=== PATIENT | female | born 1940 | race Caucasian/White ===

== ENCOUNTER 2017-02-03 14:24 | Observation (INO) ==
[2017-02-03] MEDS ORDERED: Nitroglycerin 0.4 MG TAB.SUBL SL PRN ×2 (14:29→17:35)
[2017-02-03] MEDS ORDERED: Aspirin 81 MG TAB.CHEW PO STA (14:29)
[2017-02-03] MEDS ORDERED: 0.9 % Sodium Chloride 1,000 ML IVC SCH ×2 (14:30→17:35)
--- NOTE | 2017-02-03 14:34 | Emergency Department Note ---
Disposition Clinical Impression: Chest pain Disposition: Admitted As Inpatient Condition: Good Chest Pain HPI - General Chief Complaint: ED Chest Pain Stated Complaint: Chest Pain Time Seen by Provider: 02/03/17 14:25 Source: patient, family Mode of arrival: ambulatory Limitations: no limitations Vital Signs Reviewed: Yes Nursing Notes Reviewed: Yes - History of Present Illness HPI Narrative: Patient states she is having intermittent chest pain substernal nonradiating that started about 2 hours prior to arrival. She denies to myself any nausea vomiting shortness of breath or radiation of the pain. She noted her blood pressure was up at 197 systolic prior to arrival. Pt complaint: chest pain Onset (ago): hour(s) (2) Duration: intermittent Onset: during rest Pain Location: substernal Severity: mild Severity scale (1-10): 4 Quality: tightness Improves with: nothing Worsens with: nothing Treatments prior to arrival chest pain: none - Related Data Home Medications Medication Instructions Recorded Confirmed Aspirin Enteric Coated [Aspirin EC] 162 mg PO DAILY 03/03/15 09/29/16 Brimonidine Tartrate/Timolol 1 drop OP BID 03/03/15 09/29/16 [Combigan 0.2%-0.5% Eye Drops] Cholecalciferol (Vitamin D3) 2,000 unit PO DAILY 03/03/15 09/29/16 [Vitamin D] Citalopram [CeleXA] 20 mg PO DAILY 03/03/15 09/29/16 Esomeprazole Magnesium [Nexium] 40 mg PO BID 03/03/15 09/29/16 Hypromellose [Genteal Mild] 1 drop OP HS 03/03/15 09/29/16 Insulin LISPRO [HumaLOG] 5 units SQ TIDWM MDD PER SLIDING 03/03/15 09/29/16 SCALE Pramipexole [Mirapex] 0.25 mg PO HS 03/03/15 09/29/16 Atorvastatin [Lipitor] 40 mg PO BID 10/02/15 09/29/16 Diltiazem CD (24hr) [Cardizem CD] 120 mg PO DAILY 10/02/15 09/29/16 Lubiprostone [Amitiza] 8 mcg PO BID 10/02/15 09/29/16 Ranitidine HCl [Heartburn Relief] 150 mg PO HS 10/02/15 09/29/16 Potassium Chloride [K-Tab ER] 20 meq PO DAILY 01/18/16 09/29/16 Albuterol Sulfate [Albuterol 2 puff IH Q4HR PRN 07/25/16 09/29/16 Inhaler] Ascorbic Acid [Vitamin C] 500 mg PO DAILY 07/25/16 09/29/16 Bumetanide [Bumex] 1 mg PO DAILY 07/25/16 09/29/16 Calcitriol [Rocaltrol] 0.25 mcg PO DAILY 07/25/16 09/29/16 Carboxymethylcell/Hypromellose 1 drop BOTH EYES HS 07/25/16 09/29/16 [Genteal Gel Drops] Carboxymethylcellulose Sodium 1 drop BOTH EYES QID 07/25/16 09/29/16 [Refresh Tears] Dorzolamide [Trusopt] 1 drop BOTH EYES TID 07/25/16 09/29/16 Furosemide [Lasix] 80 mg PO DAILY 07/25/16 09/29/16 Insulin DETEMIR [Levemir] 30 unit SQ HS 07/25/16 09/29/16 L. Rhamnosus GG/Inulin [Culturelle 1 cap PO DAILY 07/25/16 09/29/16 Capsule] Latanoprost [Xalatan] 1 drop BOTH EYES HS 07/25/16 09/29/16 Levothyroxine [Synthroid] 25 mcg PO 0630 07/25/16 09/29/16 Ropinirole HCl [Requip] 4 mg PO HS 07/25/16 09/29/16 Timolol [Betimol] 5 ml BOTH EYES BID 07/25/16 09/29/16 Tizanidine HCl 4 mg PO HS PRN 07/25/16 09/29/16 Estradiol [Estrace] 1 appl VG QWEEK 09/29/16 09/29/16 Tiotropium [Spiriva] 1 cap IH DAILY 09/29/16 09/29/16 metOLazone [Zaroxolyn] 5 mg PO DAILY 09/29/16 09/29/16 Previous Rx's Medication Instructions Recorded Temazepam [Restoril] 15 mg PO HS PRN #30 capsule 10/27/15 Docusate [Colace] 100 mg PO BID #30 capsule 07/26/16 Sucralfate [Carafate] 1 gm PO QIDAC #120 tablet 10/01/16 amLODIPine [Norvasc] 5 mg PO DAILY #30 tablet 10/01/16 Ciprofloxacin [Cipro] 500 mg PO BID 7 Days tablet 10/06/16 Ondansetron ODT [Zofran ODT] 4 mg SL Q6HR PRN #30 tab.rapdis 10/06/16 metroNIDAZOLE [Flagyl] 500 mg PO TID 7 Days tablet 10/06/16 Allergies Allergy/AdvReac Type Severity Reaction Status Date / Time iodine Allergy Mild Hives Verified 09/29/16 04:24 morphine Allergy Difficulty Verified 09/29/16 04:24 Breathing All systems ED: reviewed and negative except as stated. Review of Systems: As Per HPI Constitutional: Denies: fever, chills, weakness, weight change Eyes: Denies: eye pain, eye discharge, vision change ENT ED: Denies: ear pain, throat pain, dental pain, hearing loss, epistaxis, congestion, dysphagia Cardiovascular: Reports: as per HPI, chest pain. Denies: palpitations, dyspnea on exertion, edema, syncope Respiratory: Denies: cough, dyspnea, wheezes, hemoptysis, stridor Gastrointestinal: Denies: abdominal pain, nausea, vomiting, diarrhea, constipation, hematemesis, melena, hematochezia Genitourinary: Denies: dysuria, frequency, hematuria, discharge Musculoskeletal: Denies: back pain, neck pain, arthralgia, myalgia Integumentary: Denies: rash, abrasion, lesions Neurological: Denies: headache, weakness, numbness, paresthesias, confusion, abnormal gait, vertigo Psychiatric: Denies: anxiety, depression, suicidal thoughts, homicidal thoughts , auditory hallucinations, visual hallucinations Endocrine: Denies: fatigue Hematological/Lymphatic: Denies: easy bleeding, easy bruising Allergic/Immunologic: Denies: facial swelling, urticaria Chest Pain PMH - Past Medical History Medical history: Reports: arthritis, atrial fibrillation, CHF, COPD, coronary artery disease, diabetes, GERD, hyperlipidemia, hypertension, renal disease, thyroid disease, valvular heart disease, other Surgical history: Reports: appendectomy, carotid endarterectomy, cataract, cholecystectomy, sinus surgery, other Psychiatric history: Reports: anxiety, depression INVESTMENT BANKING ASSOCIATE history: Reports: no INVESTMENT BANKING ASSOCIATE history - Social History Smoking Status: Never smoker Alcohol use: Reports: none Drug use: Reports: none Physical Exam - General Limitations: no limitations General appearance: alert, in no apparent distress - Head Head exam: atraumatic, normocephalic, normal inspection - Eye Eye exam: Present: normal appearance, PERRL, EOMI - ENT ENT exam: normal exam, normal oropharynx, mucous membranes moist - Neck Neck exam: Present: normal inspection, full ROM, trachea midline - Chest Chest inspection: Present: normal inspection, symmetric chest wall rise - Respiratory Respiratory exam: Present: normal lung sounds bilaterally - Cardiovascular Cardiovascular exam: Present: regular rate, normal rhythm, normal heart sounds - Abdominal Exam Abdominal exam: Present: soft, Non-Tender. Absent: tenderness, distention, guarding, rebound, rigidity - Extremities Exam Extremities exam: Present: normal inspection, full ROM. Absent: tenderness, pedal edema - Back Exam Back exam: Present: normal inspection - Neurological Exam Neurological exam: Present: alert, oriented X3 - Psychiatric Psychiatric exam: Present: normal affect, normal mood - Skin Skin exam: Present: warm, dry, intact Course Vital Signs Temperature 97.2 F L 02/03/17 14:26 Pulse Rate 72 02/03/17 14:26 Respiratory Rate 17 02/03/17 14:26 Blood Pressure 228/94 02/03/17 14:26 O2 Sat by Pulse Oximetry 99 02/03/17 14:26 Temperature 98.0 F 02/03/17 19:43 Pulse Rate 67 02/03/17 19:43 Respiratory Rate 18 02/03/17 19:43 Blood Pressure 149/63 02/03/17 19:43 O2 Sat by Pulse Oximetry 98 02/03/17 19:43 Oxygen Delivery Oxygen Delivery Room Air Chest Pain - MDM Narrative Medical decision making narrative: Case is discussed with Dr. Tejada and he agreed to accept the patient. - Lab Data Result diagrams: 02/03/17 14:36 02/03/17 14:36 Lab Results 02/03/17 02/03/17 02/03/17 Range/Units 14:36 14:36 14:36 WBC 4.2 L (4.3-11.1) K/mcL RBC 4.73 (3.82-4.97) M/mcL Hgb 12.4 (11.5-15.4) g/dL Hct 38.7 (35.3-44.9) % MCV 81.8 L (83.0-100.0) fL MCH 26.2 L (28.0-33.3) pg MCHC 32.0 (31.6-35.5) g/dL RDW 21.4 H (11.5-14.5) % Plt Count 178 (140-400) K/mcL MPV 11.3 (9.4-12.4) fL Immature Gran % 0.2 (0-4) % Seg Neutrophils % 68.9 % Lymphocytes % 18.5 % Monocytes % 10.2 % Eosinophils % 1.7 % Basophils % 0.5 % Neutrophils # 2.9 (1.6-8.9) K/mcL Lymphocytes # 0.8 (0.6-4.6) K/mcL Monocytes # 0.4 (0.0-1.3) K/mcL Eosinophils # 0.1 (0.0-0.6) K/mcL Basophils # 0.0 (0.0-0.2) K/mcL PT 10.7 (9.4-12.1) Seconds INR 1.0 APTT 32.4 (26.0-36.0) Seconds Sodium 140 (136-145) mEq/L Potassium 4.2 (3.5-4.5) mEq/L Chloride 105 (98-109) mEq/L Carbon Dioxide 25 (19-29) mEq/L BUN 31 H (7-20) mg/dL Creatinine 1.63 H (0.57-1.11) mg/dL Est GFR ( Amer) 37 L (> 60) Est GFR (Non-Af Amer) 31 L (> 60) BUN/Creatinine Ratio 19 (6-26) Glucose 135 H (70-99) mg/dL Calculated Osmolality 299 (280-300) Calcium 10.0 (8.6-10.8) mg/dL Total Bilirubin 0.6 (0.2-1.2) mg/dL AST 87 H (5-34) Units/L ALT 75 H (0-55) Units/L Alkaline Phosphatase 155 H (38-126) Units/L Troponin I (0-0.03) ng/mL Serum Total Protein 7.4 (6.0-8.3) g/dL Albumin 3.6 (3.5-5.0) g/dL Globulin 3.8 H (2.4-3.5) g/dL Albumin/Globulin Ratio 0.9 L (1.1-2.2) 02/03/17 02/03/17 Range/Units 14:36 16:30 WBC (4.3-11.1) K/mcL RBC (3.82-4.97) M/mcL Hgb (11.5-15.4) g/dL Hct (35.3-44.9) % MCV (83.0-100.0) fL MCH (28.0-33.3) pg MCHC (31.6-35.5) g/dL RDW (11.5-14.5) % Plt Count (140-400) K/mcL MPV (9.4-12.4) fL Immature Gran % (0-4) % Seg Neutrophils % % Lymphocytes % % Monocytes % % Eosinophils % % Basophils % % Neutrophils # (1.6-8.9) K/mcL Lymphocytes # (0.6-4.6) K/mcL Monocytes # (0.0-1.3) K/mcL Eosinophils # (0.0-0.6) K/mcL Basophils # (0.0-0.2) K/mcL PT (9.4-12.1) Seconds INR APTT (26.0-36.0) Seconds Sodium (136-145) mEq/L Potassium (3.5-4.5) mEq/L Chloride (98-109) mEq/L Carbon Dioxide (19-29) mEq/L BUN (7-20) mg/dL Creatinine (0.57-1.11) mg/dL Est GFR ( Amer) (> 60) Est GFR (Non-Af Amer) (> 60) BUN/Creatinine Ratio (6-26) Glucose (70-99) mg/dL Calculated Osmolality (280-300) Calcium (8.6-10.8) mg/dL Total Bilirubin (0.2-1.2) mg/dL AST (5-34) Units/L ALT (0-55) Units/L Alkaline Phosphatase (38-126) Units/L Troponin I 0.03 0.03 (0-0.03) ng/mL Serum Total Protein (6.0-8.3) g/dL Albumin (3.5-5.0) g/dL Globulin (2.4-3.5) g/dL Albumin/Globulin Ratio (1.1-2.2) - EKG Data EKG attestation: Yes I reviewed and interpreted this EKG. EKG results narrative: EKG shows sinus rhythm with left atrial enlargement. Rate is 74 bpm ME interval of 167 ms R axis of 38 degrees
[2017-02-03 14:56] LABS: Basophils % 0.5 %; Eosinophils # 0.1 K/mcL (0.0-0.6); Eosinophils % 1.7 %; Hematocrit 38.7 % (35.3-44.9); Hemoglobin 12.4 g/dL (11.5-15.4); Immature Granulocytes % 0.2 % (0-4); Lymphocytes # 0.8 K/mcL (0.6-4.6); Lymphocytes % 18.5 %; Mean Corpuscular Hemoglobin 26.2 pg (28.0-33.3); Mean Corpuscular Volume 81.8 fL (83.0-100.0); Mean Platelet Volume 11.3 fL (9.4-12.4); Monocytes # 0.4 K/mcL (0.0-1.3); Monocytes % 10.2 %; Neutrophils # 2.9 K/mcL (1.6-8.9); Platelet Count 178 K/mcL (140-400); Red Blood Count 4.73 M/mcL (3.82-4.97); Red Cell Distribution Width 21.4 % (11.5-14.5); Segmented Neutrophils % 68.9 %
[2017-02-03 15:00] LABS: Prothrombin Time 10.7 Seconds (9.4-12.1)
[2017-02-03 15:02] LABS: Activated Partial Thrombo Time 32.4 Seconds (26.0-36.0)
[2017-02-03 15:17] LABS: Albumin 3.6 g/dL (3.5-5.0); Albumin/Globulin Ratio 0.9 (1.1-2.2); Bilirubin,Total 0.6 mg/dL (0.2-1.2); Globulin 3.8 g/dL (2.4-3.5); Potassium 4.2 mEq/L (3.5-4.5); Total Protein 7.4 g/dL (6.0-8.3)
[2017-02-03] MEDS ORDERED: Ondansetron ODT 4 MG TAB.RAPDIS SL PRN (17:35)
[2017-02-03] MEDS ORDERED: amLODIPine 5 MG TABLET PO ONE (18:40)
[2017-02-03] MEDS ORDERED: Temazepam 15 MG CAPSULE PO PRN ×2 (20:25→21:00)
[2017-02-03] MEDS ORDERED: HYPROMELLOSE OP SCH (21:00)
[2017-02-03] MEDS ORDERED: tiZANidine 4 MG TABLET PO PRN (21:00)
[2017-02-03] MEDS ORDERED: rOPINIRole 1 MG TABLET PO SCH (21:00)
[2017-02-03] MEDS ORDERED: (Lubiprostone [Amitiza] 8 MCG) PO SCH (21:00)
[2017-02-03] MEDS ORDERED: Famotidine 20 MG TABLET PO SCH (21:00)
[2017-02-03] MEDS ORDERED: (Combigan 0.2%-0.5% Eye) OP SCH (21:00)
[2017-02-03] MEDS ORDERED: NON-FORMULARY MEDICATION 1 EACH EACH (Insulin Detemir 30 UNIT) SQ SCH (21:00)
[2017-02-03] MEDS ORDERED: Insulin DETEMIR 100 UNIT/ML per UNIT SQ ONE (21:00)
[2017-02-03] MEDS ORDERED: Dorzolamide OPTH 10 ML BOTTLE BOTH EYES SCH (21:00)
[2017-02-03] MEDS ORDERED: metroNIDAZOLE 500 MG TABLET PO SCH (21:00)
[2017-02-03] MEDS ORDERED: Latanoprost 2.5 ML BOTTLE BOTH EYES SCH (21:00)
[2017-02-03] MEDS ORDERED: Artificial Tears SOLN 15 ML BOTTLE BOTH EYES SCH ×2 (21:00)
[2017-02-03] MEDS ORDERED: Insulin DETEMIR 100 UNIT/ML X5UNITS SQ SCH (21:00)
[2017-02-03] MEDS ORDERED: Sucralfate 1 GM TABLET PO SCH (22:00)
[2017-02-03] MEDS: Insulin DETEMIR 100 UNIT/ML X5UNITS SQ SCH (23:19)
[2017-02-04 03:58] LABS: Basophils % 0.5 %; Eosinophils # 0.1 K/mcL (0.0-0.6); Eosinophils % 2.2 %; Hematocrit 34.4 % (35.3-44.9); Immature Granulocytes % 0.2 % (0-4); Lymphocytes # 0.9 K/mcL (0.6-4.6); Lymphocytes % 21.6 %; Mean Corpuscular Hemoglobin 26.4 pg (28.0-33.3); Mean Corpuscular Volume 82.5 fL (83.0-100.0); Mean Platelet Volume 10.5 fL (9.4-12.4); Monocytes # 0.5 K/mcL (0.0-1.3); Monocytes % 12.5 %; Neutrophils # 2.7 K/mcL (1.6-8.9); Platelet Count 165 K/mcL (140-400); Red Blood Count 4.17 M/mcL (3.82-4.97); Red Cell Distribution Width 21.7 % (11.5-14.5)
[2017-02-04 04:15] LABS: Albumin 3.1 g/dL (3.5-5.0); Bilirubin,Total 0.3 mg/dL (0.2-1.2); Calcium 9.1 mg/dL (8.6-10.8); Globulin 3.2 g/dL (2.4-3.5); Potassium 4.2 mEq/L (3.5-4.5); Total Protein 6.3 g/dL (6.0-8.3)
[2017-02-04] MEDS: Levothyroxine 25 MCG TABLET PO SCH (06:21)
[2017-02-04] MEDS ORDERED: Levothyroxine 25 MCG TABLET PO SCH (06:30)
[2017-02-04] MEDS ORDERED: Insulin LISPRO 300 UNITS/3 ML VIAL SQ SCH ×3 (08:00→12:00)
[2017-02-04] MEDS ORDERED: Cholecalciferol (D-3) 1,000 UNIT TABLET PO SCH (09:00)
[2017-02-04] MEDS ORDERED: Diltiazem CD (24hr) 120 MG CAPSULE PO SCH (09:00)
[2017-02-04] MEDS ORDERED: Aspirin Enteric Coated 81 MG Tablet PO SCH (09:00)
[2017-02-04] MEDS ORDERED: metOLazone 5 MG TABLET PO SCH (09:00)
[2017-02-04] MEDS ORDERED: Bumetanide 1 MG TABLET PO SCH (09:00)
[2017-02-04] MEDS ORDERED: Lactobacillus 1 EACH CAP.SPRINK PO SCH (09:00)
[2017-02-04] MEDS ORDERED: Ascorbic Acid 500 MG TABLET PO SCH (09:00)
[2017-02-04] MEDS ORDERED: Furosemide 40 MG TABLET PO SCH (09:00)
[2017-02-04] MEDS ORDERED: amLODIPine 5 MG TABLET PO SCH (09:00)
[2017-02-04] MEDS ORDERED: Tiotropium 18 MCG inhalation IH SCH (10:00)
[2017-02-04] MEDS: Insulin LISPRO 300 UNITS/3 ML VIAL SQ SCH ×2 (10:49→18:03)
[2017-02-04] MEDS: Cholecalciferol (D-3) 1,000 UNIT TABLET PO SCH (10:51)
--- NOTE | 2017-02-04 10:52 | Internal Med History&Physical ---
Date of Encounter: 02/04/17 Time of Encounter: 10:10 Assessment and Plan (1) Chest pain Current visit: Yes Status: Acute Repeat cardiac enzymes were ordered through emergency room. I will order d- dimer since she has history of DVT. Qualifiers: Chest pain type: unspecified Qualified Code(s): R07.9 - Chest pain, unspecified (2) Diastolic heart failure Current visit: No Status: Chronic Her dyspnea has resolved. I will start her on Toprol for blood pressure control and heart failure. Qualifiers: Heart failure chronicity: chronic Qualified Code(s): I50.32 - Chronic diastolic (congestive) heart failure (3) Weight loss Current visit: Yes Status: Acute TSH was normal at 0.497 on 01/08/2017. Abdominal/pelvic CT done in 10/06/2016 showed no acute or worrisome intra-abdominal pathology. Will order chest CT. (4) Anemia Current visit: No Status: Acute We will order anemia testing. Qualifiers: Anemia type: unspecified type Qualified Code(s): D64.9 - Anemia, unspecified Internal Medicine - H&P: HPI Chief complaint: Chest pain Admitted From: Home Plans for Post Hospital Care: Home History of present illness: Ms. Wakefield is a 77 year old female who came to emergency room stating she had onset of chest discomfort approximately 1:30 PM while doing usual activities at home. She describes the sensation is a "heaviness" that she initially thought might be indigestion. She took an Ev[place] without relief. When it did not resolve she became more concerned so came to emergency room. She was evaluated and admitted to [facility] for ongoing care needs. She states she had a previous similar pain approximately 18 months ago prior to mitral valve replacement surgery [facility]. She has had no recurrent pain since the surgery. She has history of hypertension but denies KS. She had a heart catheter 03/19/2015 which showed LVEF of 55%. There was 30% stenosis in the mid RCA, 30% stenosis in the first marginal, and 40% stenosis in the proximal LAD. The LMCA was angiographically free of disease. An echocardiogram done 06/03/2016 showed LVEF of 65-70%. There was concentric LVH with the interventricular septum and posterior wall thickness measurement 1.5 cm each. There was LAE at 4.2 cm and mild aortic insufficiency. There was mild LV diastolic dysfunction. She reports a leg DVT following the mitral valve replacement surgery at [facility] August 2015. She completed a course of Coumadin for this. She states her chest discomfort has resolved and she feels improved at the present time. Past Med Surg Social Fam HX - Past Medical History Medical history: arthritis, atrial fibrillation, CHF, COPD, coronary artery disease, diabetes, GERD, hyperlipidemia, hypertension, renal disease, thyroid disease, valvular heart disease, other Psychiatric history: anxiety, depression - Past Surgical History Surgical History: appendectomy, carotid endarterectomy, cataract, cholecystectomy, sinus surgery, other - Social History Smoking Status: Never smoker Smokeless Tobacco Status: No Alcohol use: none Drug use: none - Family History Mother Adopted: No Family Member Ethnicity: Non- Living Status: Hx Family Cardiac Disorders: No Hx Family Respiratory Disorders: No Hx Family Cancer: No Hx Family GI Disorders: No Hx Family Endocrine Disorder: Yes (DM) Hx Family Neuromuscular Disorders: No Hx Family Neurologic Disorders: No Hx Family HEENT Disorders: No Hx Family Autoimmune Disorders: No Father Living Status: Hx Family Cardiac Disorders: Yes Internal Medicine - H&P: Meds Cholecalciferol (Vitamin D3) [Vitamin D] 2,000 unit PO DAILY 03/03/15 [History] Esomeprazole Magnesium [Nexium] 40 mg PO BID 03/03/15 [History] Hypromellose [Genteal Mild] 1 drop OP HS 03/03/15 [History] Insulin LISPRO [HumaLOG] 5 units SQ TIDWM MDD PER SLIDING SCALE 03/03/15 [ History] Pramipexole [Mirapex] 0.25 mg PO HS 03/03/15 [History] Atorvastatin [Lipitor] 40 mg PO BID 10/02/15 [History] Lubiprostone [Amitiza] 8 mcg PO BID PRN 10/02/15 [History] Temazepam [Restoril] 15 mg PO HS PRN #30 capsule 10/27/15 [Rx] Albuterol Sulfate [Albuterol Inhaler] 2 puff IH Q4HR PRN 07/25/16 [History] Carboxymethylcell/Hypromellose [Genteal Gel Drops] 1 drop BOTH EYES HS 07/25/16 [History] Carboxymethylcellulose Sodium [Refresh Tears] 1 drop BOTH EYES QID 07/25/16 [ History] Dorzolamide [Trusopt] 1 drop BOTH EYES TID 07/25/16 [History] Insulin DETEMIR [Levemir] 28 unit SQ HS 07/25/16 [History] Latanoprost [Xalatan] 1 drop BOTH EYES HS 07/25/16 [History] Levothyroxine [Synthroid] 25 mcg PO 0630 07/25/16 [History] Furosemide [Lasix] 20 mg PO QDPC PRN 02/04/17 [History] 3 Allergy/AdvReac Type Severity Reaction Status Date / Time iodine Allergy Mild Hives Verified 09/29/16 04:24 morphine Allergy Difficulty Verified 09/29/16 04:24 Breathing All Systems PM: A 10-system review of systems was performed and is negative for pertinent findings except as documented above in the HPI. Review of systems: Gen.: She states her weight has decreased from approximately 195 pounds 6 months ago to 150 pounds at present. This was unintentional. Cardiovascular: As per history of present illness Respiratory: She smoked from age [age] up to 1 pack per day. She had PFTs 12/28 which showed FVC of 57% predicted. The FEV1/FVC was 66% with significant improvement in FEV1 postbronchodilator. The RV was 130%. DLCO corrected was 40 %. GI: She has had cholecystectomy. She has rare GERD symptoms. She denies disorders of her liver or exocrine pancreas. She reports a colonoscopy done Summer 2016 was negative. : She has chronic kidney disease stage III and follows with [facility] maintenance specialist. She denies other kidney or bladder disorders. Neurologic: She denies large distribution strokes or seizures. She has had bilateral carotid endarterectomy surgery. Endocrine: She was diagnosed with DM 2 at age 37. She has hyperlipidemia and hypothyroidism Hematology/oncology: She has history of anemia. She denies known internal malignancies Psychiatric: She has feelings of depression. Denies anxiety other mental health issues Musk skeletal: She denies arthritis gout or other bone joint or muscle disorders. - Constitutional Vitals: Temp Pulse Resp BP Pulse Ox 98.6 F 81 18 122/78 96 02/04/17 06:34 02/04/17 06:34 02/04/17 06:34 02/04/17 06:34 02/04/17 06:34 Exam: Gen.: She is a well-developed well-nourished female who appears in no acute distress HEENT: Head is atraumatic and normocephalic. Eyes: EOMI. She has a slightly disconjugate gaze. There is no scleral icterus. Mouth: Mucosa is moist. Neck: Supple and nontender. There is no thyromegaly or adenopathy noted. Heart: Regular without murmurs gallops or ectopics. Lungs: No wheezes or crackles are heard. Abdomen: Soft and nontender. There are no masses or guarding noted. Chest: She is nontender in chest wall to palpation Extremities: She has 1+ edema of the dorsum of the feet distally. She has chronic venous stasis pigmentation changes of her lower legs and feet bilaterally. Dorsalis pedis and posterior tibial pulses are trace palpable bilaterally. Neurologic: Mental status: She is talkative and a good historian. Cranial nerves: Smile is symmetric. Forehead wrinkles bilaterally. Tongue protrudes midline EOMI. Motor: There is no pronator drift. Cerebellar: Fair to nose is intact bilaterally. Skin: Warm and dry Internal Med - H&P Results - Labs CBC & Chem 7: 02/04/17 03:50 02/04/17 03:50 Labs: Short CBC 02/04/17 Range/Units 03:50 WBC 4.2 L (4.3-11.1) K/mcL Hgb 11.0 L (11.5-15.4) g/dL Hct 34.4 L (35.3-44.9) % Plt Count 165 (140-400) K/mcL Neutrophils # 2.7 (1.6-8.9) K/mcL BMP 02/04/17 03:50 Sodium 141 Potassium 4.2 Chloride 106 Carbon Dioxide 27 BUN 28 H Creatinine 1.51 H Glucose 174 H Calcium 9.1 Cardiac Enzymes 02/03/17 Range/Units 22:47 Troponin I 0.04 H* (0-0.03) ng/mL Liver Function 02/04/17 Range/Units 03:50 Total Bilirubin 0.3 (0.2-1.2) mg/dL AST 68 H (5-34) Units/L ALT 81 H (0-55) Units/L Alkaline Phosphatase 142 H (38-126) Units/L Albumin 3.1 L (3.5-5.0) g/dL - VTE Reasons for not Prescribing Prophylaxis: Refused by patient
[2017-02-04] MEDS: Metoprolol XL (24 HR) Succ 25 MG TAB.ER.24H PO SCH (12:39)
--- NOTE | 2017-02-04 12:47 | Electrocardiograph Report ---
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
--- NOTE | 2017-02-04 14:31 | Electrocardiograph Report ---
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
[2017-02-04 18:12] LABS: Ferritin 31 ng/ml (5-204)
[2017-02-04 18:18] LABS: % Iron Saturation 9 % (15-50); Iron 32 mcg/dL (50-170); Transferrin 260 mg/dL (180-382)
[2017-02-04 18:23] LABS: Folate 6.7 ng/mL (7.0-31.4)
[2017-02-04] MEDS: Insulin DETEMIR 100 UNIT/ML X5UNITS SQ SCH (20:32)
[2017-02-05] MEDS: Levothyroxine 25 MCG TABLET PO SCH (05:58)
[2017-02-05 07:05] VITALS: BP 145/77
[2017-02-05] MEDS: Insulin LISPRO 300 UNITS/3 ML VIAL SQ SCH (08:05)
[2017-02-05] MEDS: Cholecalciferol (D-3) 1,000 UNIT TABLET PO SCH (08:05)
[2017-02-05] MEDS: Metoprolol XL (24 HR) Succ 25 MG TAB.ER.24H PO SCH (08:06)
--- NOTE | 2017-02-05 10:52 | Discharge Summary ---
Date of Encounter: 02/05/17 Time of Encounter: 10:20 - Discharge Diagnosis (1) Chest pain Priority: Primary Status: Resolved Qualifiers: Chest pain type: unspecified Qualified Code(s): R07.9 - Chest pain, unspecified (2) Diastolic heart failure Priority: Secondary Status: Chronic Qualifiers: Heart failure chronicity: chronic Qualified Code(s): I50.32 - Chronic diastolic (congestive) heart failure (3) Weight loss Priority: Secondary Status: Acute (4) Anemia Priority: Secondary Status: Acute Qualifiers: Anemia type: unspecified type Qualified Code(s): D64.9 - Anemia, unspecified - Discharge Medications Prescriptions: Ascorbic Acid [Vitamin C] 500 mg PO DAILY #30 tablet.er Ascorbic Acid [Vitamin C] 500 mg PO DAILY #30 tablet Benzonatate [Tessalon] 100 mg PO TID #15 capsule Bumetanide [Bumex] 0.5 mg PO Q48H #15 tablet Ferrous Sulfate 325 mg PO DAILY #30 tablet Folic Acid 1 mg PO DAILY #10 tablet Metoprolol XL (24 HR) Succ [Toprol Xl] 25 mg PO DAILY #30 tab.er.24h Home Medications: Cholecalciferol (Vitamin D3) [Vitamin D] 2,000 unit PO DAILY 03/03/15 [History] Esomeprazole Magnesium [Nexium] 40 mg PO BID 03/03/15 [History] Hypromellose [Genteal Mild] 1 drop OP HS 03/03/15 [History] Insulin LISPRO [HumaLOG] 5 units SQ TIDWM MDD PER SLIDING SCALE 03/03/15 [ History] Pramipexole [Mirapex] 0.25 mg PO HS 03/03/15 [History] Lubiprostone [Amitiza] 8 mcg PO BID PRN 10/02/15 [History] Temazepam [Restoril] 15 mg PO HS PRN #30 capsule 10/27/15 [Rx] Albuterol Sulfate [Albuterol Inhaler] 2 puff IH Q4HR PRN 07/25/16 [History] Carboxymethylcell/Hypromellose [Genteal Gel Drops] 1 drop BOTH EYES HS 07/25/16 [History] Carboxymethylcellulose Sodium [Refresh Tears] 1 drop BOTH EYES QID 07/25/16 [ History] Dorzolamide [Trusopt] 1 drop BOTH EYES TID 07/25/16 [History] Insulin DETEMIR [Levemir] 28 unit SQ HS 07/25/16 [History] Latanoprost [Xalatan] 1 drop BOTH EYES HS 07/25/16 [History] Levothyroxine [Synthroid] 25 mcg PO 0630 07/25/16 [History] Ascorbic Acid [Vitamin C] 500 mg PO DAILY #30 tablet 02/05/17 [Rx] Ascorbic Acid [Vitamin C] 500 mg PO DAILY #30 tablet.er 02/05/17 [Rx] Atorvastatin [Lipitor] 40 mg PO DAILY #0 02/05/17 [Rx] Benzonatate [Tessalon] 100 mg PO TID #15 capsule 02/05/17 [Rx] Bumetanide [Bumex] 0.5 mg PO Q48H #15 tablet 02/05/17 [Rx] Ferrous Sulfate 325 mg PO DAILY #30 tablet 02/05/17 [Rx] Folic Acid 1 mg PO DAILY #10 tablet 02/05/17 [Rx] Metoprolol XL (24 HR) Succ [Toprol Xl] 25 mg PO DAILY #30 tab.er.24h 02/05/17 [ Rx] Allergies/Adverse Reactions: 3 Allergy/AdvReac Type Severity Reaction Status Date / Time iodine Allergy Mild Hives Verified 09/29/16 04:24 morphine Allergy Difficulty Verified 09/29/16 04:24 Breathing Procedures/tests Complete & Pending: Procedures Performed prior 72 hours Category Date Time Status CT chest wo con [CT] Routine Cat Scan 02/04/17 11:08 Completed VQ Scan [NM pul vent and perfuse] [NM] Stat Exams 02/04/17 13:20 Completed Date of admission: 02/03/17 17:34 Primary care physician: Reji Hernández MD - Patient Status Disposition: Home, Self-Care Condition: Good Functional capacity at discharge: independent ambulation Overall status at discharge: patient is progressing back to baseline - Discharge Instructions Follow Up With: Reji Hernández MD [Primary Care Provider] - 1 week - Diet and Activity Activity: resume usual activities as tolerated Diet: advance to your usual diet Hospital course: Ms. Wakefield is a 77 year old female who came to emergency room stating she had onset of chest discomfort approximately 1:30 PM while doing usual activities at home. She describes the sensation is a "heaviness" that she initially thought might be indigestion. She took an Evette-[place] without relief. When it did not resolve she became more concerned so came to emergency room. She was evaluated and admitted to [facility] for ongoing care needs. Initial orders were written by the emergency room physician. I saw her on February 04 and performed a history and physical. Repeat cardiac enzymes showed no evidence of myocardial damage. A d-dimer returned elevated at 942. A contrast chest CTA could not be done because of renal insufficiency. A VQ scan was ordered with results showing low probability of pulmonary embolism. A noncontrast chest CT was done which showed hyperinflated lungs with scattered groundglass densities representing nonspecific inflammation. There was indeterminate right upper lobe pulmonary nodules measuring 3.9 mm or less. There was cardiomegaly with ascending aortic ectasia. Her PCP Dr. Reji Hernández can follow-up on these abnormalities as clinically needed. Anemia testing showed iron 32, transferrin saturation 9%, transferrin 260, ferritin 31, B12 349, and folate 6.7. She will be given prescriptions for ferrous sulfate with vitamin C and folic acid at discharge. Her azotemia improved slightly to 1.51 on the day of discharge. Lasix will be discontinued and Bumex given at a dose of 0.5 mg every other day. She was started on Toprol XL 25 mg daily for heart failure and hypertension. Diltiazem was discontinued. On February 05 she felt improved and stable for discharge home. She will follow with her PCP Dr. Reji Hernández within 1 week. - Time Spent with Patient Total time spent providing and/or coordinating discharge services: - Constitutional Vitals: Temp Pulse Resp BP Pulse Ox 98.6 F 88 17 145/77 97 02/05/17 07:05 02/05/17 07:05 02/05/17 07:05 02/05/17 07:05 02/05/17 07:05 - VTE Reasons for not Prescribing Prophylaxis: Refused by patient
== END 2017-02-05 11:59 | disposition home or self-care (01) ==
LOC: INPPIK 14:24 → EMEROOPIK 14:24 → INPPIK 17:35
PROVIDERS: ADMIT Internal Medicine; ATTEND Internal Medicine

== ENCOUNTER 2017-05-12 08:57 | Observation (INO) ==
--- NOTE | 2017-05-12 09:08 | Emergency Department Note ---
Disposition Clinical Impression: Hyperkalemia Acute renal failure Qualifiers: Acute renal failure type: unspecified Qualified Code(s): N17.9 - Acute kidney failure, unspecified Headache Qualifiers: Headache type: other headache syndrome Qualified Code(s): G44.89 - Other headache syndrome Hypertension Qualifiers: Hypertension type: essential hypertension Qualified Code(s): I10 - Essential ( primary) hypertension Disposition: Admitted As Inpatient Condition: Fair Referrals: Reji Hernández MD [Primary Care Provider] - Forms: ED Satisfaction Letter Headache HPI - General Chief Complaint: ED Headache Stated Complaint: headache/ humming in head Time Seen by Provider: 05/12/17 08:59 Source: patient, EMS Mode of arrival: EMS Limitations: no limitations Nursing Notes Reviewed: Yes Vital Signs Reviewed: Yes - History of Present Illness HPI Narrative: Patient reports she woke some time this early a.m. with a headache. She states this was frontal and periorbital, throbbing and felt "like a headache". She states she has had headaches like this before but has not had one "for a while" . She also notes a humming sensation in her head and the "roaring" sensation in her ears. She questioned if her blood pressure was up but did not take her daily medicines including blood pressure medicine. She reports some light sensitivity and sound sensitivity. She reports normal vision. She denies nausea, vomiting, fever, neck pain/stiffness nor any extremity numbness, tingling or weakness. She denies any recent fall or injury. She has not had alterations in mental status or speech. She states that she would have felt "slightly dizzy". By time of arrival to the emergency department by EMS she states that she feels "pretty good" but still states she has a bad headache. Jan reported that she was diaphoretic on scene, but there was concern that she might have been hypoglycemic. Her had given her orange juice and a Pepsi prior to their arrival. Her Accu-Chek per EMS was 79 and administered additional oral glucose. EMS did document her pressure to be elevated at that time 203/94. Pt Subjective Complaint: headache Onset (ago): hour(s) Onset description: gradual, awoke with symptoms Location: frontal, retro-orbital Pain Severity: moderate Quality: throbbing, similar to previous headaches, other ("Like a headache") Improves with: nothing Worsens with: light Context: occurred at rest Associated symptoms: Reports: diaphoresis, photophobia. Denies: chest pain, cough, fever, nausea, vomiting, malaise, neck stiffness, phonophobia, rash, seizure, eye pain/redness, syncope, vision changes, SOB, tingling, numbness, confusion, weakness Treatments prior to arrival: other (Aspirin) - Related Data Home Medications Medication Instructions Recorded Confirmed Carboxymethylcell/Hypromellose 1 drop BOTH EYES BID 07/25/16 05/12/17 [Genteal Gel Drops] Latanoprost [Xalatan] 1 drop BOTH EYES HS 07/25/16 05/12/17 Acetaminophen [Non-Aspirin] 325 mg PO Q4H PRN 03/21/17 05/12/17 Furosemide [Lasix] 80 mg PO DAILY 03/21/17 05/12/17 Multivit-Min/FA/Lycopen/Lutein 1 each PO DAILY 03/21/17 05/12/17 [Adults 50+ Multivitamin Tablet] Pramipexole [Mirapex] 1 mg PO QPM 03/21/17 05/12/17 Tizanidine HCl [Zanaflex] 4 mg PO PRN PRN 03/21/17 05/12/17 Insulin ASPART [Novolog Flexpen] 20 unit SQ TID 03/24/17 05/12/17 Metoprolol XL (24 HR) Succ [Toprol 25 mg PO DAILY 03/24/17 05/12/17 Xl] Pantoprazole Sodium 40 mg PO BID 03/24/17 05/12/17 Previous Rx's Medication Instructions Recorded Temazepam [Restoril] 15 mg PO HS PRN #30 capsule 10/27/15 Bumetanide [Bumex] 0.5 mg PO Q48H #15 tablet 02/05/17 Ferrous Sulfate 325 mg PO DAILY #30 tablet 02/05/17 Losartan [Cozaar] 50 mg PO BID #120 tablet 03/27/17 amLODIPine [Norvasc] 10 mg PO DAILY #60 tablet 03/27/17 Allergies Allergy/AdvReac Type Severity Reaction Status Date / Time iodine Allergy Mild Hives Verified 03/20/17 10:28 morphine Allergy Difficulty Verified 03/20/17 10:28 Breathing All systems ED: reviewed and negative except as stated. Headache PMH - Past Medical History Medical history: Reports: arthritis, atrial fibrillation, CHF, COPD, coronary artery disease, diabetes, GERD, hyperlipidemia, hypertension, renal disease, thyroid disease, valvular heart disease, other Female Surgical History: Reports: appendectomy, carotid endarterectomy, cataract , cholecystectomy, heart valve replacement (porcine valve), sinus surgery, other (eye surgery -- lazy eye) Psychiatric history: Reports: anxiety, depression NURSE RN BSN history: Reports: no NURSE RN BSN history - Social History Smoking Status: Former smoker Alcohol use: Reports: none Drug use: Reports: none Physical Exam - General Limitations: no limitations General appearance: alert, in no apparent distress - Head Head exam: atraumatic, normocephalic, normal inspection - Eye Eye exam: Present: normal appearance, PERRL, EOMI. Absent: scleral icterus, conjunctival injection, nystagmus - ENT ENT exam: normal exam, normal oropharynx, mucous membranes moist - Neck Neck exam: Present: normal inspection, full ROM, trachea midline. Absent: tenderness, meningismus - Chest Chest inspection: Present: normal inspection, symmetric chest wall rise - Respiratory Respiratory exam: Present: normal lung sounds bilaterally. Absent: respiratory distress, wheezes, prolonged expiratory phase - Cardiovascular Cardiovascular exam: Present: regular rate, normal rhythm, normal heart sounds - Abdominal Exam Abdominal exam: Present: soft, Non-Tender, normal bowel sounds. Absent: tenderness, distention, guarding, rebound, rigidity - Extremities Exam Extremities exam: Present: normal inspection, full ROM, normal capillary refill. Absent: tenderness, pedal edema, calf tenderness - Expanded Lower Extremity Exam Neurovascular/Tendon exam: Present: normal capillary refill. Absent: motor deficit, sensory deficit, tendon deficit Gait: not tested/not observed - Back Exam Back exam: Present: normal inspection, full ROM. Absent: tenderness - Neurological Exam Neurological exam: Present: alert, oriented X3, CN II-XII intact, reflexes normal. Absent: motor sensory deficit (Equal strength in all extremities.) - Psychiatric Psychiatric exam: Present: normal affect, normal mood - Skin Skin exam: Present: warm, dry, intact, normal color. Absent: diaphoresis, pallor Course Course Narrative: 0950: Given the patient's acute on chronic renal failure, hyperkalemia, headache and malaise, have ordered IV fluids and had an EKG and a troponin to her labs. She will likely need inpatient observation. I will await the return of all testing prior to making calls. 1055: All testing and treatment has been discussed with Dr. Tejada. He is agreeable with inpatient observation of this patient. Verbal orders have been obtained for her admission. Vital Signs Temperature 96.2 F L 05/12/17 09:01 Pulse Rate 73 05/12/17 09:01 Respiratory Rate 19 05/12/17 09:01 Blood Pressure 155/40 05/12/17 09:01 O2 Sat by Pulse Oximetry 98 05/12/17 09:01 Temperature 96.2 F L 05/12/17 09:01 Pulse Rate 82 05/12/17 10:22 Respiratory Rate 14 05/12/17 10:22 Blood Pressure 157/86 05/12/17 10:22 O2 Sat by Pulse Oximetry 97 05/12/17 10:22 Oxygen Delivery Oxygen Delivery Room Air Headache - Differential Diagnosis Differential Diagnosis: Likely: tension headache, headache - Medical Records Medical records reviewed: Yes I reviewed the patient's medical records. - Lab Data Lab results reviewed: Yes I reviewed the patient's lab results. Result diagrams: 05/12/17 09:21 05/12/17 09:21 Lab Results 05/12/17 05/12/17 05/12/17 Range/Units 09:05 09:20 09:21 WBC 8.4 (4.3-11.1) K/mcL RBC 4.63 (3.82-4.97) M/mcL Hgb 13.7 (11.5-15.4) g/dL Hct 42.2 (35.3-44.9) % MCV 91.1 (83.0-100.0) fL MCH 29.6 (28.0-33.3) pg MCHC 32.5 (31.6-35.5) g/dL RDW 13.2 (11.5-14.5) % Plt Count 209 (140-400) K/mcL MPV 11.3 (9.4-12.4) fL Immature Gran % 0.5 (0-4) % Seg Neutrophils % 72.0 % Lymphocytes % 16.1 % Monocytes % 9.8 % Eosinophils % 1.1 % Basophils % 0.5 % Neutrophils # 6.1 (1.6-8.9) K/mcL Lymphocytes # 1.4 (0.6-4.6) K/mcL Monocytes # 0.8 (0.0-1.3) K/mcL Eosinophils # 0.1 (0.0-0.6) K/mcL Basophils # 0.0 (0.0-0.2) K/mcL Sodium (136-145) mEq/L Potassium (3.5-5.1) mEq/L Chloride (98-107) mEq/L Carbon Dioxide (23-29) mEq/L BUN (8-23) mg/dL Creatinine (0.60-1.20) mg/dL Est GFR ( Amer) (> 60) Est GFR (Non-Af Amer) (> 60) BUN/Creatinine Ratio (6-26) Glucose (70-105) mg/dL POC Glucose 97 H (58-89) Calculated Osmolality (280-300) Calcium (8.6-10.3) mg/dL Troponin I 0.04 H* (< 0.04) ng/mL 05/12/17 Range/Units 09:21 WBC (4.3-11.1) K/mcL RBC (3.82-4.97) M/mcL Hgb (11.5-15.4) g/dL Hct (35.3-44.9) % MCV (83.0-100.0) fL MCH (28.0-33.3) pg MCHC (31.6-35.5) g/dL RDW (11.5-14.5) % Plt Count (140-400) K/mcL MPV (9.4-12.4) fL Immature Gran % (0-4) % Seg Neutrophils % % Lymphocytes % % Monocytes % % Eosinophils % % Basophils % % Neutrophils # (1.6-8.9) K/mcL Lymphocytes # (0.6-4.6) K/mcL Monocytes # (0.0-1.3) K/mcL Eosinophils # (0.0-0.6) K/mcL Basophils # (0.0-0.2) K/mcL Sodium 136 (136-145) mEq/L Potassium 5.4 H (3.5-5.1) mEq/L Chloride 102 (98-107) mEq/L Carbon Dioxide 25 (23-29) mEq/L BUN 46 H (8-23) mg/dL Creatinine 2.34 H (0.60-1.20) mg/dL Est GFR ( Amer) 24 L (> 60) Est GFR (Non-Af Amer) 20 L (> 60) BUN/Creatinine Ratio 20 (6-26) Glucose 95 (70-105) mg/dL POC Glucose (58-89) Calculated Osmolality 294 (280-300) Calcium 9.6 (8.6-10.3) mg/dL Troponin I (< 0.04) ng/mL - Radiology Data Radiology results reviewed: Yes I reviewed the patient's radiology results. CT head is performed. This is reviewed on bone and soft tissue windows. There is no evidence for acute intracranial bleed, shift, mass or edema. Patient has some age-appropriate frontal atrophy present. Mastoids and sinuses appear normal. There is no fracture evident. This is on my interpretation. - EKG Data EKG attestation: Yes I reviewed and interpreted this EKG. EKG shows normal: sinus rhythm, axis, intervals, QRS complexes, ST-T waves Rate: normal P waves: LAE Interpretation: no acute changes
[2017-05-12 09:26] LABS: Basophils % 0.5 %; Eosinophils # 0.1 K/mcL (0.0-0.6); Eosinophils % 1.1 %; Hematocrit 42.2 % (35.3-44.9); Hemoglobin 13.7 g/dL (11.5-15.4); Immature Granulocytes % 0.5 % (0-4); Lymphocytes # 1.4 K/mcL (0.6-4.6); Lymphocytes % 16.1 %; Mean Corpuscular HGB Conc 32.5 g/dL (31.6-35.5); Mean Corpuscular Hemoglobin 29.6 pg (28.0-33.3); Mean Corpuscular Volume 91.1 fL (83.0-100.0); Mean Platelet Volume 11.3 fL (9.4-12.4); Monocytes # 0.8 K/mcL (0.0-1.3); Monocytes % 9.8 %; Neutrophils # 6.1 K/mcL (1.6-8.9); Platelet Count 209 K/mcL (140-400); Red Blood Count 4.63 M/mcL (3.82-4.97); Red Cell Distribution Width 13.2 % (11.5-14.5)
[2017-05-12 09:42] LABS: Calcium 9.6 mg/dL (8.6-10.3); Potassium 5.4 mEq/L (3.5-5.1)
[2017-05-12] MEDS ORDERED: 0.9 % Sodium Chloride 500 ML IVC ONE (09:46)
[2017-05-12] MEDS ORDERED: *HR* Dextrose 50 % in Water (Syg) 50 ML SYRINGE IVP ONE (10:00)
[2017-05-12] MEDS ORDERED: 0.9 % Sodium Chloride 1,000 ML IVC SCH ×2 (10:00→11:44)
[2017-05-12] MEDS ORDERED: Insulin Human Regular 10 UNIT in 0.9 % Sodium Chloride 10 ML IV ONE (10:00)
[2017-05-12] MEDS ORDERED: Acetaminophen 325 MG TABLET PO ONE (10:20)
[2017-05-12] MEDS ORDERED: *HR* Dextrose 50 % in Water (Syg) 50 ML SYRINGE IVP PRN (11:44)
[2017-05-12] MEDS ORDERED: MOM Conc 10 ML UD.LIQ PO PRN (11:44)
[2017-05-12] MEDS ORDERED: Ondansetron 4 MG/2 ML VIAL IVP PRN (11:44)
[2017-05-12] MEDS ORDERED: Dextrose Gel 15 GM PO PRN ×2 (11:44)
[2017-05-12] MEDS ORDERED: Bumetanide 1 MG TABLET PO SCH (11:44)
[2017-05-12] MEDS ORDERED: Naloxone 0.4 MG/ML INJ IVP PRN (11:44)
[2017-05-12] MEDS ORDERED: D5% in Water 1,000 ML IVC PRN (11:44)
[2017-05-12] MEDS: Insulin LISPRO 300 UNITS/3 ML VIAL SQ SCH ×4 (16:58→22:21)
--- NOTE | 2017-05-12 18:09 | Internal Med History&Physical ---
Date of Encounter: 05/12/17 Time of Encounter: 17:30 Assessment and Plan (1) Acute renal failure Current visit: Yes Status: Acute Creatinine was 2.34 in emergency room compared to 1.24 on 03/27/2017. Will hold Bumex and give IV fluids and monitor renal indices. Qualifiers: Acute renal failure type: unspecified Qualified Code(s): N17.9 - Acute kidney failure, unspecified (2) HTN (hypertension) Current visit: Yes Status: Chronic Pressure suboptimally controlled. Will increase dose of Toprol and start low- dose Cardura at bedtime. Qualifiers: Hypertension type: essential hypertension Qualified Code(s): I10 - Essential (primary) hypertension (3) Hyperkalemia Current visit: Yes Status: Acute Suspect due primarily to renal insufficiency. She denies use of Cozaar in several weeks. We will give IV fluids and recheck labs in a.m. Internal Medicine - H&P: HPI Chief complaint: Headache and hypoglycemia Admitted From: Emergency Dept Plans for Post Hospital Care: Home History of present illness: Ms. Wakefield is a 77 year old female who came to the hospital after she had a possible syncopal episode at home. She reported feeling "tired" last evening and did not sleep well. Her blood sugar this morning was 123. However her reports she did not appear to be acting normally this morning. He reports she went upstairs and lay down on the bed. She was essentially unresponsive and her felt she likely had hypoglycemia. He gave her some orange juice. He reports her speech was slurred when she seemed to be improving. Squad was called and blood sugar was reportedly 78 mg percent by squad personnel. She was brought to emergency room and evaluated and admitted to [facility] floor for ongoing care needs. She states she has a slight headache at present time but has no other new complaints. She was diagnosed with DM 2 at age 37. She takes 25/20/25 units of NovoLog before meals. She has not seen an phone specialist in over one year. She has hyperlipidemia and hypothyroidism. Past Med Surg Social Fam HX - Past Medical History Medical history: arthritis, atrial fibrillation, CHF, COPD, coronary artery disease, diabetes, GERD, hyperlipidemia, hypertension, renal disease, thyroid disease, valvular heart disease, other Psychiatric history: anxiety, depression - Past Surgical History Surgical History: appendectomy, carotid endarterectomy, cataract, cholecystectomy, heart valve replacement, other - Social History Smoking Status: Former smoker Smokeless Tobacco Status: No Alcohol use: none Drug use: none - Family History Mother Adopted: No Family Member Ethnicity: Non- Living Status: Hx Family Cardiac Disorders: No Hx Family Respiratory Disorders: No Hx Family Cancer: No Hx Family GI Disorders: No Hx Family Endocrine Disorder: Yes (DM) Hx Family Neuromuscular Disorders: No Hx Family Neurologic Disorders: No Hx Family HEENT Disorders: No Hx Family Autoimmune Disorders: No Father Adopted: No Living Status: Hx Family Cardiac Disorders: Yes (VT, HTN) Internal Medicine - H&P: Meds Temazepam [Restoril] 15 mg PO HS PRN #30 capsule 10/27/15 [Rx] Carboxymethylcell/Hypromellose [Genteal Gel Drops] 1 drop BOTH EYES BID [History] Latanoprost [Xalatan] 1 drop BOTH EYES HS 07/25/16 [History] Bumetanide [Bumex] 0.5 mg PO Q48H #15 tablet 02/05/17 [Rx] Ferrous Sulfate 325 mg PO DAILY #30 tablet 02/05/17 [Rx] Acetaminophen [Non-Aspirin] 325 mg PO Q4H PRN 03/21/17 [History] Furosemide [Lasix] 80 mg PO DAILY 03/21/17 [History] Multivit-Min/FA/Lycopen/Lutein [Adults 50+ Multivitamin Tablet] 1 each PO DAILY 03/21/17 [History] Pramipexole [Mirapex] 1 mg PO QPM 03/21/17 [History] Tizanidine HCl [Zanaflex] 4 mg PO PRN PRN 03/21/17 [History] Insulin ASPART [Novolog Flexpen] 20 unit SQ TID 03/24/17 [History] Metoprolol XL (24 HR) Succ [Toprol Xl] 25 mg PO DAILY 03/24/17 [History] Pantoprazole Sodium 40 mg PO BID 03/24/17 [History] Losartan [Cozaar] 50 mg PO BID #120 tablet 03/27/17 [Rx] amLODIPine [Norvasc] 10 mg PO DAILY #60 tablet 03/27/17 [Rx] 3 Allergy/AdvReac Type Severity Reaction Status Date / Time iodine Allergy Mild Hives Verified 03/20/17 10:28 morphine Allergy Difficulty Verified 03/20/17 10:28 Breathing All Systems PM: A 10-system review of systems was performed and is negative for pertinent findings except as documented above in the HPI. Review of systems: Review of systems from her January 2017 [facility] hospitalization were reviewed and revised as below. Gen.: Her weight has increased from 69.485 kg on 02/05/2017 to 77.111 kg at present.. Cardiovascular: She has history of hypertension but denies VT. She had a heart catheter 03/19/2015 which showed LVEF of 55%. There was 30% stenosis in the mid RCA, 30% stenosis in the first marginal, and 40% stenosis in the proximal LAD. The LMCA was angiographically free of disease. An echocardiogram done 07/2016 showed LVEF of 60-65%. The interventricular septum and posterior wall thickness measurements were elevated at 1.50 cm each. There was LAE at 4.50 cm. The E/A ratio was 1.3. There was mild aortic regurgitation and a bioprosthetic mitral valve with a gradient 11 mmHg. There was elevated estimated RVSP at 55 mmHg. 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 She completed a course of Coumadin for this. She has had bilateral carotid endarterectomy surgery. Respiratory: She smoked from age [age] up to 1 pack per day. She had PFTs 12/28 which showed FVC of 57% predicted. The FEV1/FVC was 66% with significant improvement in FEV1 postbronchodilator. The RV was 130%. DLCO corrected was 40 %. GI: She has had cholecystectomy. She has rare GERD symptoms. She denies disorders of her liver or exocrine pancreas. She reports a colonoscopy done Summer 2016 was negative. : She has chronic kidney disease stage III and follows with [place] [facility]. She denies other kidney or bladder disorders. Neurologic: She denies large distribution strokes or seizures. Endocrine: As per history of present illness Hematology/oncology: She has history of anemia. She denies known internal malignancies Psychiatric: She has feelings of depression. Denies anxiety other mental health issues Musk skeletal: She denies arthritis gout or other bone joint or muscle disorders. - Constitutional Vitals: Temp Pulse Resp BP Pulse Ox 96.2 F L 83 18 149/62 96 05/12/17 09:01 05/12/17 11:44 05/12/17 11:44 05/12/17 11:44 05/12/17 11:44 Exam: Gen.: She is a well-developed well-nourished female resting comfortably in bed who appears in no acute distress HEENT: Head is atraumatic and normocephalic. Eyes: EOMI. There is no scleral icterus. Mouth: Mucosa is moist. Neck: Supple and nontender. There is no thyromegaly or adenopathy noted. Heart: Regular without murmurs gallops or ectopics Lungs: No wheezes or crackles heard. Abdomen: Soft and nontender. No masses or guarding are noted. Extremities: There is no cyanosis edema or clubbing noted. Dorsalis pedis and posterior tibial pulses are trace palpable bilaterally. Neurologic: Mental status: She is talkative and a good historian. Cranial nerves: Smile is symmetric. Forehead wrinkles bilaterally. Tongue protrudes midline. EOMI. Motor: There is no pronator drift. Cerebellar: Finger to nose intact bilaterally. Skin: Warm and dry Internal Med - H&P Results - Labs CBC & Chem 7: 05/12/17 09:21 05/12/17 09:21
[2017-05-12] MEDS ORDERED: Latanoprost 2.5 ML BOTTLE BOTH EYES SCH (21:00)
[2017-05-12] MEDS ORDERED: tiZANidine 4 MG TABLET PO SCH (21:00)
[2017-05-12] MEDS ORDERED: Temazepam 15 MG CAPSULE PO PRN (21:00)
[2017-05-12] MEDS: Artificial Tears SOLN 15 ML BOTTLE BOTH EYES SCH (22:18)
[2017-05-12] MEDS ORDERED: traZODone 50 MG TABLET PO PRN (22:31)
[2017-05-12] MEDS ORDERED: Insulin DETEMIR 100 UNIT/ML per UNIT SQ ONE (22:45)
[2017-05-13 07:17] LABS: Basophils % 0.5 %; Eosinophils # 0.1 K/mcL (0.0-0.6); Eosinophils % 2.2 %; Hematocrit 32.9 % (35.3-44.9); Immature Granulocytes % 0.2 % (0-4); Lymphocytes # 1.4 K/mcL (0.6-4.6); Lymphocytes % 34.2 %; Mean Corpuscular HGB Conc 33.4 g/dL (31.6-35.5); Mean Corpuscular Hemoglobin 29.9 pg (28.0-33.3); Mean Corpuscular Volume 89.4 fL (83.0-100.0); Mean Platelet Volume 11.8 fL (9.4-12.4); Monocytes # 0.4 K/mcL (0.0-1.3); Monocytes % 10.6 %; Neutrophils # 2.1 K/mcL (1.6-8.9); Platelet Count 130 K/mcL (140-400); Red Blood Count 3.68 M/mcL (3.82-4.97); Red Cell Distribution Width 13.2 % (11.5-14.5); Segmented Neutrophils % 52.3 %
[2017-05-13 07:27] VITALS: BP 111/52
[2017-05-13] MEDS: Insulin LISPRO 300 UNITS/3 ML VIAL SQ SCH (07:33)
[2017-05-13 07:38] LABS: Albumin/Globulin Ratio 1.4 (1.1-2.2); Bilirubin,Total 0.3 mg/dL (0.3-1.0); Calcium 8.5 mg/dL (8.6-10.3); Globulin 2.2 g/dL (2.4-3.5); Potassium 4.6 mEq/L (3.5-5.1); Total Protein 5.2 g/dL (6.4-8.9)
[2017-05-13] MEDS ORDERED: Furosemide 40 MG TABLET PO SCH (09:00)
[2017-05-13] MEDS ORDERED: Metoprolol XL (24 HR) Succ 50 MG TAB.ER.24H PO SCH (09:00)
[2017-05-13] MEDS ORDERED: Metoprolol XL (24 HR) Succ 25 MG TAB.ER.24H PO SCH (09:00)
[2017-05-13] MEDS ORDERED: amLODIPine 5 MG TABLET PO SCH (09:00)
[2017-05-13] MEDS: Artificial Tears SOLN 15 ML BOTTLE BOTH EYES SCH (09:49)
--- NOTE | 2017-05-13 10:14 | Discharge Summary ---
Date of Encounter: 05/13/17 Time of Encounter: 10:00 - Discharge Diagnosis (1) Acute renal failure Priority: Primary Status: Acute Qualifiers: Acute renal failure type: unspecified Qualified Code(s): N17.9 - Acute kidney failure, unspecified (2) HTN (hypertension) Priority: Secondary Status: Chronic Qualifiers: Hypertension type: essential hypertension Qualified Code(s): I10 - Essential (primary) hypertension (3) Hyperkalemia Priority: Secondary Status: Resolved - Discharge Medications Home Medications: Temazepam [Restoril] 15 mg PO HS PRN #30 capsule 10/27/15 [Rx] Carboxymethylcell/Hypromellose [Genteal Gel Drops] 1 drop BOTH EYES BID [History] Latanoprost [Xalatan] 1 drop BOTH EYES HS 07/25/16 [History] Acetaminophen [Non-Aspirin] 325 mg PO Q4H PRN 03/21/17 [History] Multivit-Min/FA/Lycopen/Lutein [Adults 50+ Multivitamin Tablet] 1 each PO DAILY 03/21/17 [History] Pramipexole [Mirapex] 1 mg PO QPM 03/21/17 [History] Tizanidine HCl [Zanaflex] 4 mg PO PRN PRN 03/21/17 [History] Insulin ASPART [Novolog Flexpen] 20 unit SQ TID 03/24/17 [History] Metoprolol XL (24 HR) Succ [Toprol Xl] 25 mg PO DAILY 03/24/17 [History] Pantoprazole Sodium 40 mg PO BID PRN #0 05/13/17 [Rx] Allergies/Adverse Reactions: 3 Allergy/AdvReac Type Severity Reaction Status Date / Time iodine Allergy Mild Hives Verified 03/20/17 10:28 morphine Allergy Difficulty Verified 03/20/17 10:28 Breathing Date of admission: 05/12/17 11:16 - Patient Status Disposition: Home, Self-Care Condition: Fair Overall status at discharge: patient is progressing back to baseline - Discharge Instructions Follow Up With: Morelia Malcolm, MAC ARTIST [Advanced Practice Nurse] - 1 week - Diet and Activity Activity: resume usual activities as tolerated Diet: diabetic diet Hospital course: Ms. Wakefield is a 77 year old female who came to the hospital after she had a possible syncopal episode at home. She reported feeling "tired" last evening and did not sleep well. Her blood sugar this morning was 123. However her reports she did not appear to be acting normally this morning. He reports she went upstairs and lay down on the bed. She was essentially unresponsive and her felt she likely had hypoglycemia. He gave her some orange juice. He reports her speech was slurred when she seemed to be improving. Squad was called and blood sugar was reportedly 78 mg percent by squad personnel. She was brought to emergency room and evaluated and admitted to [facility] for ongoing care needs. Initial orders were written by the emergency room physician. I saw her on May 12 and perform the history and physical. Diuretics were held and she was given IV fluids. Her azotemia improved with creatinine decreasing to 2.03 and estimated GFR rising to 24 by May 13. She will remain off Bumex at discharge. Hemoglobin decreased to 11.0 the morning of discharge. No anemia testing was done prior to discharge but her PCP can order this as needed. She had no further episodes of hypoglycemia. When I saw her May 13 she felt stable for discharge home. She will follow with a PCP at [facility] within 1 week. - Time Spent with Patient Total time spent providing and/or coordinating discharge services: - Constitutional Vitals: Temp Pulse Resp BP Pulse Ox 97.7 F 70 17 111/52 97 05/13/17 07:26 05/13/17 07:26 05/13/17 07:26 05/13/17 07:26 05/13/17 07:26
[2017-05-13] MEDS ORDERED: Insulin DETEMIR 100 UNIT/ML X5UNITS SQ SCH (21:00)
--- NOTE | 2017-05-14 07:56 | Electrocardiograph Report ---
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
== END 2017-05-13 12:06 | disposition home or self-care (01) ==
LOC: EMEROOPIK 08:57 → INPPIK 08:57
PROVIDERS: ADMIT Internal Medicine; ATTEND Internal Medicine

== ENCOUNTER 2017-07-13 20:07 | Observation (INO) ==
--- NOTE | 2017-07-13 20:12 | Emergency Department Note ---
Disposition Clinical Impression: Dehydration, Hypoglycemia, IDDM (insulin dependent diabetes mellitus), Chronic kidney disease, stage III (moderate) Disposition: Admitted As Inpatient Condition: Fair Time of Disposition: 00:06 ([facility]) Weakness HPI - General Chief complaint: ED Weakness Stated complaint: weakness Time Seen by Provider: 07/13/17 20:08 Source: patient, EMS Mode of arrival: EMS Limitations: no limitations Nursing Notes Reviewed: Yes Vital Signs Reviewed: Yes - History of Present Illness HPI Narrative: Patient reportedly had weakness had difficulty putting her Coumadin on had difficulty speaking sugar was checked on her and it was found to be 64 EMS gave her oral glucose do the stating that this was abnormal for her when they rechecked her in route it was then down to 50 patient denies any blurred vision double vision has trouble speaking follows commands knows her name and birthdate without difficulty she denies the chest pain chest pressure palpitations cough hemoptysis sputum production diarrhea melena hematochezia or hematemesis Pt Subjective Complaint: generalized weakness/fatigue Onset (ago): Just LO[employer]ER [employer] GR[employer] Duration: other (improving) Location: generalized Improves with: other (with oral glucose per ems) Worsens with: none Associated symptoms: Reports: syncope (near). Denies: chest pain, confusion, dark stools, diaphoresis, dysuria, easy bruising, fever/chills, headaches, loss of appetite, nausea/vomiting, myalgias, rash, shortness of breath - Related Data Home Medications Medication Instructions Recorded Confirmed Carboxymethylcell/Hypromellose 1 drop BOTH EYES BID 07/25/16 07/13/17 [Genteal Gel Drops] Latanoprost [Xalatan] 1 drop BOTH EYES HS 07/25/16 07/13/17 Acetaminophen [Non-Aspirin] 325 mg PO Q4H PRN 03/21/17 05/12/17 Multivit-Min/FA/Lycopen/Lutein 1 each PO DAILY 03/21/17 07/13/17 [Adults 50+ Multivitamin Tablet] Pramipexole [Mirapex] 1 mg PO QPM 03/21/17 07/13/17 Insulin ASPART [Novolog Flexpen] 20 unit SQ TID 03/24/17 07/13/17 Previous Rx's Medication Instructions Recorded Pantoprazole Sodium 40 mg PO BID PRN #0 05/13/17 Allergies Allergy/AdvReac Type Severity Reaction Status Date / Time iodine Allergy Mild Hives Verified 07/13/17 21:02 morphine Allergy Difficulty Verified 07/13/17 21:02 Breathing All systems ED: reviewed and negative except as stated. Review of Systems: As Per HPI Constitutional: Reports: weakness. Denies: fever, chills Eyes: Denies: eye pain, eye discharge ENT ED: Denies: ear pain, throat pain, dental pain, congestion, dysphagia Cardiovascular: Denies: chest pain, palpitations, syncope Respiratory: Denies: cough, dyspnea, wheezes, sputum production Gastrointestinal: Denies: abdominal pain, nausea, vomiting, diarrhea, constipation Genitourinary: Denies: urgency, dysuria, frequency Musculoskeletal: Denies: back pain, neck pain, joint swelling Integumentary: Denies: rash, abrasion, other Neurological: Reports: weakness. Denies: headache, numbness, paresthesias Psychiatric: Denies: anxiety, depression, suicidal thoughts, auditory hallucinations Endocrine: Denies: fatigue, heat or cold intolerance, polydipsia, polyuria Hematological/Lymphatic: Denies: easy bleeding, easy bruising, lymphadenopathy Allergic/Immunologic: Denies: facial swelling, urticaria, itchy eyes Past Medical History - Past Medical History Attestation: Yes The following information was validated with the patient. 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 - Social History Smoking Status: Former smoker Smokeless Tobacco Status: No Alcohol use: Reports: none Drug use: Reports: none Physical Exam - General Limitations: no limitations General appearance: alert, in no apparent distress, anxious - Head Head exam: atraumatic, normocephalic, normal inspection - Eye Eye exam: Present: normal appearance, PERRL, EOMI - ENT ENT exam: normal exam, normal oropharynx, mucous membranes moist, TM's normal bilaterally, normal external ear exam - Neck Neck exam: Present: normal inspection, full ROM, trachea midline - Chest Chest inspection: Present: normal inspection, symmetric chest wall rise - Respiratory Respiratory exam: Present: normal lung sounds bilaterally - Cardiovascular Cardiovascular exam: Present: regular rate, normal rhythm, normal heart sounds - Abdominal Exam Abdominal exam: Present: soft, Non-Tender, normal bowel sounds. Absent: mass, pulsatile mass - Extremities Exam Extremities exam: Present: normal inspection, full ROM, normal capillary refill. Absent: tenderness, pedal edema, joint swelling, calf tenderness - Expanded Upper Extremity Exam Shoulder exam: Present: normal inspection, full ROM Arm exam: Present: normal inspection, full ROM Elbow exam: Present: normal inspection, full ROM Forearm/Wrist exam: Present: normal inspection, full ROM Hand exam: Present: normal inspection, full ROM Vascular exam: Normal: capillary refill, radial pulse - Expanded Lower Extremity Exam Hip/Pelvis exam: Present: normal inspection, full ROM Upper leg exam: Present: normal inspection, full ROM Knee exam: Present: normal inspection, full ROM Lower leg exam: Present: normal inspection, full ROM Ankle exam: Present: normal inspection, full ROM Foot/toe exam: Present: normal inspection, full ROM Neurovascular/Tendon exam: Present: normal capillary refill, normal fine/light touch. Absent: motor deficit, sensory deficit, tendon deficit - Back Exam Back exam: Present: normal inspection, full ROM. Absent: muscle spasm - Neurological Exam Neurological exam: Present: alert, oriented X3, CN II-XII intact - Psychiatric Psychiatric exam: Present: flat affect (and slightly confused about what has happened) - Skin Skin exam: Present: warm, dry, intact, normal color Course Course Narrative: Patient immediately seen and examined taken directly to CAT scan upon arrival to the ER to rule out the possibility of a stroke upon return laboratory data EKG were done - Reevaluation(s) Reevaluation #1: With the labs having been obtained the labs were repeated for the troponin and d -dimer d-dimer slightly elevated renal functions impaired because of false elevation of the d-dimer plus with her underlying cardiac disease and hypoglycemia this could also be up precipitating event patient's been having some weakness and falls which could also cause a false elevation as result patient will be admitted for observation serial enzymes EKGs and serial neuro exam Reevaluation #2: Discussed with family they understand the findings we found at this time and that there is no clear-cut evidence to what is causing the events I did offer to transfer her to another facility they're comfortable with workup here Vital Signs Temperature 97.1 F L 07/13/17 20:31 Pulse Rate 67 07/13/17 20:31 Respiratory Rate 18 07/13/17 20:31 Blood Pressure 192/82 07/13/17 20:31 O2 Sat by Pulse Oximetry 97 07/13/17 20:31 Temperature 97.1 F L 07/13/17 20:31 Pulse Rate 89 07/14/17 00:00 Respiratory Rate 14 07/14/17 00:00 Blood Pressure 114/73 07/14/17 00:00 O2 Sat by Pulse Oximetry 99 07/14/17 00:00 Oxygen Delivery Oxygen Delivery Room Air Weakness - Differential Diagnosis Differential Diagnosis: Likely: acute myocardial infarction, anemia, hypoglycemia, sepsis/infection, dehydration, medication effect, stroke, metabolic, thyroid/endocrine disorder - Medical Records Medical records reviewed: Yes I reviewed the patient's medical records. - Lab Data Lab results reviewed: Yes I reviewed the patient's lab results. Result diagrams: 07/13/17 20:25 07/13/17 20:25 Lab Results 07/13/17 07/13/17 07/13/17 Range/Units 20:25 20:25 20:25 WBC 5.7 (4.3-11.1) K/mcL RBC 4.39 (3.82-4.97) M/mcL Hgb 13.6 (11.5-15.4) g/dL Hct 40.8 (35.3-44.9) % MCV 92.9 (83.0-100.0) fL MCH 31.0 (28.0-33.3) pg MCHC 33.3 (31.6-35.5) g/dL RDW 13.4 (11.5-14.5) % Plt Count 188 (140-400) K/mcL MPV 11.4 (9.4-12.4) fL Immature Gran % 0.2 (0-4) % Seg Neutrophils % 62.0 % Lymphocytes % 24.2 % Monocytes % 10.1 % Eosinophils % 2.6 % Basophils % 0.9 % Neutrophils # 3.5 (1.6-8.9) K/mcL Lymphocytes # 1.4 (0.6-4.6) K/mcL Monocytes # 0.6 (0.0-1.3) K/mcL Eosinophils # 0.2 (0.0-0.6) K/mcL Basophils # 0.1 (0.0-0.2) K/mcL PT 10.5 (9.4-12.1) Seconds INR 1.0 APTT 31.6 (26.0-36.0) Seconds D-Dimer (0-500) ng/mLFEU Sodium 134 L (136-145) mEq/L Potassium 4.4 (3.5-5.1) mEq/L Chloride 106 (98-107) mEq/L Carbon Dioxide 19 L (23-29) mEq/L BUN 28 H (8-23) mg/dL Creatinine 1.63 H (0.60-1.20) mg/dL Est GFR ( Amer) 37 L (> 60) Est GFR (Non-Af Amer) 31 L (> 60) BUN/Creatinine Ratio 17 (6-26) Glucose 57 L (70-105) mg/dL Calculated Osmolality 281 (280-300) Calcium 9.0 (8.6-10.3) mg/dL Total Bilirubin 0.5 (0.3-1.0) mg/dL AST 21 (13-39) Units/L ALT 15 (7-52) Units/L Alkaline Phosphatase 102 (34-104) Units/L Troponin I < 0.03 (< 0.04) ng/mL Serum Total Protein 6.6 (6.4-8.9) g/dL Albumin 3.8 (3.5-5.7) g/dL Globulin 2.8 (2.4-3.5) g/dL Albumin/Globulin Ratio 1.4 (1.1-2.2) TSH 0.193 L (0.340-5.600) mcIU/mL Urine Color (Yellow) Urine Clarity (Clear) Urine pH (5.0-8.0) pH Units Ur Specific [place] (1.010-1.025) Urine Protein (Neg-Trace) mg/dL Urine Glucose (UA) (Normal) mg/dL Urine Ketones (Negative) mg/dL Urine Blood (Negative) Urine Nitrite (Negative) Urine Bilirubin (Negative) Urine Urobilinogen (Normal) mg/dL Ur Leukocyte Esterase (Negative) Urine Microscopic RBC (0-3) per hpf Urine Microscopic WBC (0-3) per hpf Ur Squamous Epith Cells (None-Few) per lpf Urine Bacteria (None-Few) per hpf Ur Culture Indicated? (NO) 07/13/17 07/13/17 07/13/17 Range/Units 22:10 23:18 23:18 WBC (4.3-11.1) K/mcL RBC (3.82-4.97) M/mcL Hgb (11.5-15.4) g/dL Hct (35.3-44.9) % MCV (83.0-100.0) fL MCH (28.0-33.3) pg MCHC (31.6-35.5) g/dL RDW (11.5-14.5) % Plt Count (140-400) K/mcL MPV (9.4-12.4) fL Immature Gran % (0-4) % Seg Neutrophils % % Lymphocytes % % Monocytes % % Eosinophils % % Basophils % % Neutrophils # (1.6-8.9) K/mcL Lymphocytes # (0.6-4.6) K/mcL Monocytes # (0.0-1.3) K/mcL Eosinophils # (0.0-0.6) K/mcL Basophils # (0.0-0.2) K/mcL PT (9.4-12.1) Seconds INR APTT (26.0-36.0) Seconds D-Dimer 799 H (0-500) ng/mLFEU Sodium (136-145) mEq/L Potassium (3.5-5.1) mEq/L Chloride (98-107) mEq/L Carbon Dioxide (23-29) mEq/L BUN (8-23) mg/dL Creatinine (0.60-1.20) mg/dL Est GFR ( Amer) (> 60) Est GFR (Non-Af Amer) (> 60) BUN/Creatinine Ratio (6-26) Glucose (70-105) mg/dL Calculated Osmolality (280-300) Calcium (8.6-10.3) mg/dL Total Bilirubin (0.3-1.0) mg/dL AST (13-39) Units/L ALT (7-52) Units/L Alkaline Phosphatase (34-104) Units/L Troponin I < 0.03 (< 0.04) ng/mL Serum Total Protein (6.4-8.9) g/dL Albumin (3.5-5.7) g/dL Globulin (2.4-3.5) g/dL Albumin/Globulin Ratio (1.1-2.2) TSH (0.340-5.600) mcIU/mL Urine Color Straw (Yellow) Urine Clarity Clear (Clear) Urine pH 7.0 (5.0-8.0) pH Units Ur Specific [place] 1.015 (1.010-1.025) Urine Protein 100 H (Neg-Trace) mg/dL Urine Glucose (UA) Normal (Normal) mg/dL Urine Ketones Negative (Negative) mg/dL Urine Blood Trace-intact H (Negative) Urine Nitrite Negative (Negative) Urine Bilirubin Negative (Negative) Urine Urobilinogen Normal (Normal) mg/dL Ur Leukocyte Esterase Negative (Negative) Urine Microscopic RBC 0-3 (0-3) per hpf Urine Microscopic WBC 0-3 (0-3) per hpf Ur Squamous Epith Cells Few (None-Few) per lpf Urine Bacteria Few (None-Few) per hpf Ur Culture Indicated? NO (NO) PH 7.377 PaCO2 of 40.1 PaO2 of 86.2 bicarbonate 23.6 O2 sats of 96.3% - Radiology Data Radiology results reviewed: Yes I reviewed the patient's radiology results. ITS Impressions Head CT 07/13/17 20:08 IMPRESSION: Limited examination, demonstrating atrophy and mild small vessel ischemic disease. Findings were discussed with Brit Rogel at 20:27 on 07/13/2017. D/ / Beltran Prado MD / Beltran Prado MD Interpreting Provider: Beltran Prado MD Chest X-Ray 07/13/17 20:16 IMPRESSION: 1. There is a 9 mm vague nodular opacity projecting over the left proximal clavicle. This was not definitely seen on the prior study and unclear if this is artifactual. Consider x-ray with lordotic views for further evaluation. 2. Otherwise no significant change. 3. Low lung volume study. Mild elevation of right hemidiaphragm. Stable mild nonspecific interstitial prominence. No focal lung opacity. D/ /13/2017 21:23:00 Dayday Diaz MD / yamini Interpreting Provider: Dayday Diaz MD Abdomen/Pelvis CT 07/13/17 22:30 IMPRESSION: 1. Unchanged mild eccentric anterior bladder wall thickening could be due to cystitis ; correlate with urinalysis. D/ / Forrest Real MD / Forrest Real MD Interpreting Provider: Forrest Real MD - EKG Data EKG attestation: Yes I reviewed and interpreted this EKG. EKG results narrative: Sinus rhythm rate 65 LA 150 QRS 108 QT 428 axis XXXIX Critical Care Time Critical Care Time: Yes Total Critical Care Time: 35 Attestation: Critical care performed: 35 minutes as result of patient having an alteration of her mental status which is most likely secondary to her hypoglycemia but in addition the to this considerations include that of a stroke or even possible cardiac event infection or even sepsis multiple was done on the patient spoke multiple times with Dr. Tejada as well as family in regards to what was etiology for this continued further inpatient workup Time is exclusive of separately billable procedures. Time includes: direct patient care, patient reassessment, coordination of patient care, interpretation of data (laboratory data, radiology data, and respiratory data), review of patient's medical records, medical consultation and documentation of patient care. Procedures included in critical care time: Procedures excluded from critical care time:
[2017-07-13 20:34] LABS: Basophils # 0.1 K/mcL (0.0-0.2); Basophils % 0.9 %; Eosinophils # 0.2 K/mcL (0.0-0.6); Eosinophils % 2.6 %; Hematocrit 40.8 % (35.3-44.9); Hemoglobin 13.6 g/dL (11.5-15.4); Immature Granulocytes % 0.2 % (0-4); Lymphocytes # 1.4 K/mcL (0.6-4.6); Lymphocytes % 24.2 %; Mean Corpuscular HGB Conc 33.3 g/dL (31.6-35.5); Mean Corpuscular Volume 92.9 fL (83.0-100.0); Mean Platelet Volume 11.4 fL (9.4-12.4); Monocytes # 0.6 K/mcL (0.0-1.3); Monocytes % 10.1 %; Neutrophils # 3.5 K/mcL (1.6-8.9); Platelet Count 188 K/mcL (140-400); Red Blood Count 4.39 M/mcL (3.82-4.97); Red Cell Distribution Width 13.4 % (11.5-14.5)
[2017-07-13 20:42] LABS: Prothrombin Time 10.5 Seconds (9.4-12.1)
[2017-07-13 20:44] LABS: Activated Partial Thrombo Time 31.6 Seconds (26.0-36.0)
[2017-07-13] MEDS ORDERED: *HR* Dextrose 50 % in Water (Syg) 50 ML SYRINGE IVP ONE (20:53)
[2017-07-13 20:54] LABS: Alanine Aminotransferase 15 Units/L (7-52); Albumin 3.8 g/dL (3.5-5.7); Albumin/Globulin Ratio 1.4 (1.1-2.2); Alkaline Phosphatase 102 Units/L (34-104); Aspartate Amino Transferase 21 Units/L (13-39); BUN/Creatinine Ratio 17 (6-26); Bilirubin,Total 0.5 mg/dL (0.3-1.0); Blood Urea Nitrogen 28 mg/dL (8-23); Carbon Dioxide 19 mEq/L (23-29); Chloride 106 mEq/L (98-107); Globulin 2.8 g/dL (2.4-3.5); Glucose 57 mg/dL (70-105); Osmolality,Calculated 281 (280-300); Potassium 4.4 mEq/L (3.5-5.1); Sodium 134 mEq/L (136-145); Total Protein 6.6 g/dL (6.4-8.9); eGFR For African Americans 37 (> 60); eGFR For Non-African Americans 31 (> 60)
[2017-07-13 20:56] LABS: Troponin I < 0.03 ng/mL (< 0.04)
[2017-07-13 21:09] LABS: Thyroid Stimulating Hormone 0.193 mcIU/mL (0.340-5.600)
[2017-07-13] MEDS ORDERED: 0.9 % Sodium Chloride 1,000 ML IVC SCH (21:30)
[2017-07-13 22:26] LABS: Bilirubin,Urine Negative (Negative); Blood,Urine Trace-intact (Negative); Clarity,Urine Clear (Clear); Color,Urine Straw (Yellow); Glucose,Urine (UA) Normal (Normal); Ketones,Urine Negative (Negative); Leukocyte Esterase,Urine Negative (Negative); Nitrite,Urine Negative (Negative); Protein,Urine 100 mg/dL (Neg-Trace); Specific Gravity,Urine 1.015 (1.010-1.025); Urobilinogen,Urine Normal (Normal)
[2017-07-13 22:47] LABS: Bacteria,Urine Few per hpf (None-Few); RBC,Urine 0-3 per hpf (0-3); Squamous Epithelial Cell,Urine Few per lpf (None-Few); WBC,Urine 0-3 per hpf (0-3)
[2017-07-14] MEDS ORDERED: cloNIDine HCl 0.1 MG TABLET PO STA (00:54)
[2017-07-14] MEDS ORDERED: Dextrose Gel 15 GM PO PRN ×2 (01:08)
[2017-07-14] MEDS ORDERED: D5% in Water 1,000 ML IVC PRN (01:08)
[2017-07-14] MEDS ORDERED: Naloxone 0.4 MG/ML INJ IVP PRN (01:08)
[2017-07-14] MEDS ORDERED: *HR* Dextrose 50 % in Water (Syg) 50 ML SYRINGE IVP PRN (01:08)
[2017-07-14] MEDS: 0.9 % Sodium Chloride 1,000 ML IVC SCH ×2 (02:06→07:05)
[2017-07-14] MEDS: Ondansetron 4 MG/2 ML VIAL IVP PRN ×2 (02:31→08:16)
[2017-07-14] MEDS ORDERED: Aspirin 325 MG TABLET PO ONE (04:26)
[2017-07-14 05:28] LABS: Basophils % 0.3 %; Eosinophils % 0.2 %; Hematocrit 41.6 % (35.3-44.9); Hemoglobin 14.2 g/dL (11.5-15.4); Immature Granulocytes % 0.3 % (0-4); Lymphocytes # 0.9 K/mcL (0.6-4.6); Lymphocytes % 9.5 %; Mean Corpuscular HGB Conc 34.1 g/dL (31.6-35.5); Mean Corpuscular Hemoglobin 30.6 pg (28.0-33.3); Mean Corpuscular Volume 89.7 fL (83.0-100.0); Mean Platelet Volume 11.2 fL (9.4-12.4); Monocytes # 0.4 K/mcL (0.0-1.3); Monocytes % 4.3 %; Platelet Count 191 K/mcL (140-400); Red Blood Count 4.64 M/mcL (3.82-4.97); Red Cell Distribution Width 13.2 % (11.5-14.5); Segmented Neutrophils % 85.4 %
[2017-07-14 05:56] LABS: Calcium 9.2 mg/dL (8.6-10.3); Potassium 4.8 mEq/L (3.5-5.1)
[2017-07-14] MEDS ORDERED: *HR* Propranolol 1 MG/ML VIAL IVP ONE (06:46)
[2017-07-14] MEDS ORDERED: Insulin LISPRO 300 UNITS/3 ML VIAL SQ SCH (08:00)
[2017-07-14] MEDS: Multivit/Ca/Min/Fe/FA 1 TAB TABLET PO SCH (08:16)
[2017-07-14] MEDS: Artificial Tears SOLN 15 ML BOTTLE BOTH EYES SCH ×2 (08:17→19:54)
[2017-07-14] MEDS: Insulin LISPRO 300 UNITS/3 ML VIAL SQ SCH ×3 (08:38→18:14)
--- NOTE | 2017-07-14 10:14 | Internal Med History&Physical ---
Date of Encounter: 07/14/17 Time of Encounter: 09:40 Assessment and Plan (1) Acute focal neurological deficit Current visit: Yes Status: Acute Head CT in emergency room showed no obvious infarct. Will order aspirin and Plavix with carotid ultrasound. (2) Chronic kidney disease, stage III (moderate) Current visit: Yes Status: Chronic We will monitor renal indices. (3) HTN (hypertension) Current visit: No Status: Chronic Suspect worsening of blood pressure due to neurologic event. Will give additional treatment as needed. Qualifiers: Hypertension type: essential hypertension Qualified Code(s): I10 - Essential (primary) hypertension Internal Medicine - H&P: HPI Chief complaint: Confusion Admitted From: Emergency Dept Plans for Post Hospital Care: Home History of present illness: Ms. Wakefield is a 77 year old female who came to emergency room complaining of confusion, slurred speech and left arm feeling slightly numb. The previous night she complained of feeling hot and cold and having a headache. Her symptoms the previous night improved after she rested for a while. Her was concerned when her speech was slurred. Jan was called and blood sugar was checked and found to be 64. Squad gave her glucose with minimal improvement in symptoms. She was evaluated in emergency room and admitted to [facility] floor for ongoing care needs. She denies previous similar episodes. Her neurologic history is negative for large distribution strokes or seizures. She had bilateral carotid endarterectomies in the past with left side done 1997 and right side done 2015. She has carotid ultrasound 02/25/2017 which showed bilateral 40-59% stenosis. She denies sensation of weakness of her arms or legs at the present time. She feels her speech is not normal and she has difficulty comprehending what others are saying. She states she feels "confused". Past Med Surg Social Fam HX - Past Medical History Medical history: arthritis, atrial fibrillation, CHF, COPD, coronary artery disease, diabetes, GERD, hyperlipidemia, hypertension, renal disease, thyroid disease, valvular heart disease, other Psychiatric history: anxiety, depression - Past Surgical History Surgical History: appendectomy, carotid endarterectomy, cataract, cholecystectomy, heart valve replacement, other - Social History Smoking Status: Former smoker Smokeless Tobacco Status: No Alcohol use: none Drug use: none - Family History Mother Adopted: No Family Member Ethnicity: Non- Living Status: Hx Family Cardiac Disorders: No Hx Family Respiratory Disorders: No Hx Family Cancer: No Hx Family GI Disorders: No Hx Family Endocrine Disorder: Yes (DM) Hx Family Neuromuscular Disorders: No Hx Family Neurologic Disorders: No Hx Family HEENT Disorders: No Hx Family Autoimmune Disorders: No Father Adopted: No Living Status: Hx Family Cardiac Disorders: Yes ([place], HTN) Internal Medicine - H&P: Meds Carboxymethylcell/Hypromellose [Genteal Gel Drops] 1 drop BOTH EYES BID [History] Latanoprost [Xalatan] 1 drop BOTH EYES HS 07/25/16 [History] Acetaminophen [Non-Aspirin] 325 mg PO Q4H PRN 03/21/17 [History] Multivit-Min/FA/Lycopen/Lutein [Adults 50+ Multivitamin Tablet] 1 each PO DAILY 03/21/17 [History] Pramipexole [Mirapex] 1 mg PO QPM 03/21/17 [History] Insulin ASPART [Novolog Flexpen] 20 unit SQ TID 03/24/17 [History] Pantoprazole Sodium 40 mg PO BID PRN #0 05/13/17 [Rx] 3 Allergy/AdvReac Type Severity Reaction Status Date / Time iodine Allergy Mild Hives Verified 07/13/17 21:02 morphine Allergy Difficulty Verified 07/13/17 21:02 Breathing All Systems PM: A 10-system review of systems was performed and is negative for pertinent findings except as documented above in the HPI. Review of systems: Review of systems from her April 2017 [facility] hospitalization were reviewed and revised as below. Gen.: Her weight increased from 69.485 kg on 02/05/2017 to 77.111 kg April 2017 but decreased to 62.341 kg at present.. Cardiovascular: She has history of hypertension but denies [place]. She had a heart catheter 03/19/2015 which showed LVEF of 55%. There was 30% stenosis in the mid RCA, 30% stenosis in the first marginal, and 40% stenosis in the proximal LAD. The LMCA was angiographically free of disease. An echocardiogram done 07/2016 showed LVEF of 60-65%. The interventricular septum and posterior wall thickness measurements were elevated at 1.50 cm each. There was LAE at 4.50 cm. The E/A ratio was 1.3. There was mild aortic regurgitation and a bioprosthetic mitral valve with a gradient 11 mmHg. There was elevated estimated RVSP at 55 mmHg. She reports a leg DVT following the mitral valve replacement surgery at [facility] August 2015. She completed a course of Coumadin for this. She has had bilateral carotid endarterectomy surgery. Respiratory: She smoked from age [age] up to 1 pack per day. She had PFTs 12/28 which showed FVC of 57% predicted. The FEV1/FVC was 66% with significant improvement in FEV1 postbronchodilator. The RV was 130%. DLCO corrected was 40 %. GI: She has had cholecystectomy. She has rare GERD symptoms. She denies disorders of her liver or exocrine pancreas. She reports a colonoscopy done Summer 2016 was negative. : She has chronic kidney disease stage III and follows with a [place] behavioral instructor. She denies other kidney or bladder disorders. Neurologic: As per history of present illness Endocrine: She was diagnosed with DM 2 in 1976. She has hyperlipidemia and hypothyroidism. Hematology/oncology: She has history of anemia. She denies known internal malignancies Psychiatric: She has feelings of depression. Denies anxiety other mental health issues Musk skeletal: She denies arthritis gout or other bone joint or muscle disorders. - Constitutional Vitals: Temp Pulse Resp BP Pulse Ox 98.5 F 105 22 210/110 96 07/14/17 07:29 07/14/17 07:29 07/14/17 07:29 07/14/17 07:29 07/14/17 07:29 Exam: Gen.: She is a well-developed well-nourished female who appears anxious but in no acute distress HEENT: Head is atraumatic and normocephalic. Eyes: EOMI. There is no scleral icterus. Mouth: Mucosa is moist. Neck: Supple and nontender. There is no thyromegaly or adenopathy noted. She has healed bilateral carotid endarterectomy scars. Heart: Regular without murmurs gallops or ectopics Lungs: No wheezes or crackles heard. Abdomen: Soft and nontender. No masses or guarding are noted. Extremities: There is no cyanosis edema or clubbing noted. Dorsalis pedis and posttibial pulses are trace palpable bilaterally. Neurologic: Mental status: She is able to answer some questions but seems have difficulty comprehending commands. Cranial nerves: Smile is symmetric. Forehead wrinkles bilaterally. Tongue protrudes midline. EOMI. Motor: There is no pronator drift with the right arm. The left arm shows equivocal slight drift. Rapid finger movements testing commands are not comprehended by the patient. Cerebellar: Finger to nose is intact bilaterally. Skin: Warm and dry Internal Med - H&P Results - Labs CBC & Chem 7: 07/14/17 05:15 07/14/17 05:15 Labs: Short CBC 07/14/17 Range/Units 05:15 WBC 9.4 D (4.3-11.1) K/mcL Hgb 14.2 (11.5-15.4) g/dL Hct 41.6 (35.3-44.9) % Plt Count 191 (140-400) K/mcL Neutrophils # 8.0 (1.6-8.9) K/mcL BMP 07/14/17 05:15 Sodium 135 L Potassium 4.8 Chloride 103 Carbon Dioxide 21 L BUN 28 H Creatinine 1.57 H Glucose 157 H Calcium 9.2 Cardiac Enzymes 07/14/17 Range/Units 05:15 Troponin I 0.04 H* (< 0.04) ng/mL
[2017-07-14] MEDS: ALPRAZolam 0.5 MG TABLET PO PRN ×2 (11:38→19:53)
[2017-07-14] MEDS: Aspirin 81 MG TAB.CHEW PO SCH (11:45)
[2017-07-14] MEDS ORDERED: Latanoprost 2.5 ML BOTTLE BOTH EYES SCH (21:00)
[2017-07-15] MEDS: 0.9 % Sodium Chloride 1,000 ML IVC SCH (00:41)
[2017-07-15 06:10] LABS: Basophils % 0.6 %; Eosinophils # 0.1 K/mcL (0.0-0.6); Eosinophils % 2.4 %; Hematocrit 31.8 % (35.3-44.9); Hemoglobin 10.6 g/dL (11.5-15.4); Immature Granulocytes % 0.2 % (0-4); Lymphocytes # 1.9 K/mcL (0.6-4.6); Lymphocytes % 40.3 %; Mean Corpuscular HGB Conc 33.3 g/dL (31.6-35.5); Mean Corpuscular Hemoglobin 30.6 pg (28.0-33.3); Mean Corpuscular Volume 91.9 fL (83.0-100.0); Mean Platelet Volume 11.6 fL (9.4-12.4); Monocytes # 0.5 K/mcL (0.0-1.3); Monocytes % 11.6 %; Neutrophils # 2.1 K/mcL (1.6-8.9); Platelet Count 129 K/mcL (140-400); Red Blood Count 3.46 M/mcL (3.82-4.97); Red Cell Distribution Width 13.4 % (11.5-14.5); Segmented Neutrophils % 44.9 %
[2017-07-15 06:37] LABS: Potassium 4.6 mEq/L (3.5-5.1)
[2017-07-15] MEDS: Insulin LISPRO 300 UNITS/3 ML VIAL SQ SCH (08:07)
[2017-07-15] MEDS: Aspirin 81 MG TAB.CHEW PO SCH (08:11)
[2017-07-15] MEDS: Artificial Tears SOLN 15 ML BOTTLE BOTH EYES SCH (08:11)
[2017-07-15] MEDS: Multivit/Ca/Min/Fe/FA 1 TAB TABLET PO SCH (08:11)
[2017-07-15 10:35] VITALS: BP 159/74
--- NOTE | 2017-07-15 11:38 | Discharge Summary ---
Date of Encounter: 07/15/17 Time of Encounter: 11:25 - Discharge Diagnosis (1) TIA (transient ischemic attack) Priority: Primary Status: Resolved Qualifiers: Transient cerebral ischemia type: unspecified Qualified Code(s): G45.9 - Transient cerebral ischemic attack, unspecified (2) Chronic kidney disease, stage III (moderate) Priority: Secondary Status: Chronic (3) HTN (hypertension) Priority: Secondary Status: Chronic Qualifiers: Hypertension type: essential hypertension Qualified Code(s): I10 - Essential (primary) hypertension Hospital course: Ms. Wakefield is a 77 year old female who came to emergency room complaining of confusion, slurred speech and left arm feeling slightly numb. The previous night she complained of feeling hot and cold and having a headache. Her symptoms the previous night improved after she rested for a while. Her was concerned when her speech was slurred. Squad was called and blood sugar was checked and found to be 64. Squad gave her glucose with minimal improvement in symptoms. She was evaluated in emergency room and admitted to [facility] floor for ongoing care needs. Initial orders were written by the emergency room physician. I saw her on July 14 and performed the history and physical. Carotid Doppler was ordered and showed no significant change from February 2017 study at 40-59% internal carotid stenosis bilaterally. She was started on aspirin and Plavix and had complete return of neurologic function by the morning of July 15. She felt back to her baseline and wished to be discharged home which I felt was reasonable. She will continue with aspirin 81 mg daily and Plavix 75 mg daily at discharge. She was started on metoprolol and her blood pressure improved. She will continue on this at discharge. She will follow with her PCP Morelia Kwok CNP within 1 week. - Time Spent with Patient Total time spent providing and/or coordinating discharge services: - Discharge Medications Prescriptions: Clopidogrel [Plavix] 75 mg PO DAILY #30 tablet Metoprolol XL (24 HR) Succ [Toprol XL] 25 mg PO DAILY #30 tab.er.24h Home Medications: Carboxymethylcell/Hypromellose [Genteal Gel Drops] 1 drop BOTH EYES BID [History] Latanoprost [Xalatan] 1 drop BOTH EYES HS 07/25/16 [History] Acetaminophen [Non-Aspirin] 325 mg PO Q4H PRN 03/21/17 [History] Multivit-Min/FA/Lycopen/Lutein [Adults 50+ Multivitamin Tablet] 1 each PO DAILY 03/21/17 [History] Pramipexole [Mirapex] 1 mg PO QPM 03/21/17 [History] Insulin ASPART [Novolog Flexpen] 20 unit SQ TID 03/24/17 [History] Pantoprazole Sodium 40 mg PO BID PRN #0 05/13/17 [Rx] Clopidogrel [Plavix] 75 mg PO DAILY #30 tablet 07/15/17 [Rx] Metoprolol XL (24 HR) Succ [Toprol XL] 25 mg PO DAILY #30 tab.er.24h 07/15/17 [ Rx] Allergies/Adverse Reactions: 3 Allergy/AdvReac Type Severity Reaction Status Date / Time iodine Allergy Mild Hives Verified 07/13/17 21:02 morphine Allergy Difficulty Verified 07/13/17 21:02 Breathing Date of admission: 07/14/17 00:26 Primary care physician: Morelia Malcolm - Constitutional Vitals: Temp Pulse Resp BP Pulse Ox 97.5 F L 60 18 159/74 98 07/15/17 10:33 07/15/17 10:33 07/15/17 10:33 07/15/17 10:33 07/15/17 10:33 - Patient Status Disposition: Home, Self-Care Condition: Fair Overall status at discharge: patient is progressing back to baseline - Discharge Instructions Follow Up With: Morelia Malcolm, SLEEP LAB TECHNICIAN [Primary Care Provider] - 1 week - Diet and Activity Activity: resume usual activities as tolerated Diet: advance to your usual diet
--- NOTE | 2017-07-15 19:40 | Electrocardiograph Report ---
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
== END 2017-07-15 12:33 | disposition home or self-care (01) ==
LOC: EMEROOPIK 20:07 → INPPIK 20:07
PROVIDERS: ADMIT Internal Medicine; ATTEND Internal Medicine

== ENCOUNTER 2017-07-31 16:04 | Observation (INO) ==
[2017-07-31] MEDS ORDERED: *HR* Dextrose 50 % in Water (Syg) 50 ML SYRINGE IVP ONE ×2 (16:39→17:40)
[2017-07-31] MEDS ORDERED: *HR* Dextrose 50 % in Water (Syg) 50 ML SYRINGE ONE ×2 (16:41→21:10)
--- NOTE | 2017-07-31 16:46 | Emergency Department Note ---
Disposition Clinical Impression: Hypoglycemia associated with diabetes, Elevated troponin Disposition: Admitted As Inpatient Condition: Fair Referrals: Morelia Malcolm CNP [Primary Care Provider] - Forms: ED Satisfaction Letter, Work/School Release Time of Disposition: 18:54 General Adult HPI - General Chief complaint: ED General Medical Stated complaint: HX TIA, GENERALIZED WEAKNESS, DIABETIC Time Seen by Provider: 07/31/17 16:13 Source: patient, family, other Mode of arrival: wheelchair Nursing Notes Reviewed: Yes Vital Signs Reviewed: Yes - History of Present Illness HPI Narrative: Patient was wheeled over here from her clinic visit because she was acting confused and they are concerned she was having a TIA. Pt Subjective Complaint: "I do not know what I am doing" Onset (ago): day(s) (Today) Pain Scale: 0 Improves with: nothing Worsens with: nothing Associated symptoms: Reports: denies other symptoms. Denies: fever/chills, headaches, shortness of breath, weakness Treatments Prior to Arrival: other (Attempted oral glucose but she did not get much in.) - Related Data Home Medications Medication Instructions Recorded Confirmed Carboxymethylcell/Hypromellose 1 drop BOTH EYES BID 07/25/16 07/31/17 [Genteal Gel Drops] Latanoprost [Xalatan] 1 drop BOTH EYES HS 07/25/16 07/31/17 Multivit-Min/FA/Lycopen/Lutein 1 each PO DAILY 03/21/17 07/31/17 [Adults 50+ Multivitamin Tablet] Pramipexole [Mirapex] 1 mg PO TID 03/21/17 07/31/17 Albuterol Sulfate [Albuterol 2 puff IH Q4HR PRN 07/31/17 07/31/17 Inhaler] Aspirin [Lo-Dose Aspirin EC] 81 mg PO DAILY 07/31/17 07/31/17 Atorvastatin [Lipitor] 40 mg PO HS 07/31/17 07/31/17 Cholecalciferol (Vitamin D3) 2,000 unit PO DAILY 07/31/17 07/31/17 [Vitamin D] Losartan Potassium [Cozaar] 50 mg PO DAILY 07/31/17 07/31/17 Lubiprostone [Amitiza] 24 mcg PO AD PRN 07/31/17 07/31/17 Pantoprazole Sodium 40 mg PO DAILY 07/31/17 07/31/17 Temazepam [Restoril] 15 mg PO HS 07/31/17 07/31/17 Tiotropium Quinn [Spiriva 2 puff IH DAILY 07/31/17 07/31/17 Respimat] Previous Rx's Medication Instructions Recorded Clopidogrel [Plavix] 75 mg PO DAILY #30 tablet 07/15/17 Allergies Allergy/AdvReac Type Severity Reaction Status Date / Time iodine Allergy Mild Hives Verified 07/13/17 21:02 morphine Allergy Difficulty Verified 07/13/17 21:02 Breathing All systems ED: reviewed and negative except as stated. Constitutional: Denies: fever, chills ENT ED: Denies: ear pain, throat pain, congestion Cardiovascular: Denies: chest pain, palpitations, syncope Respiratory: Denies: cough, dyspnea, wheezes Gastrointestinal: Denies: abdominal pain, nausea, vomiting, diarrhea Genitourinary: Denies: urgency, dysuria, frequency Musculoskeletal: Denies: back pain, neck pain Integumentary: Denies: rash Neurological: Denies: headache, weakness, numbness Past Medical History - Past Medical History Attestation: Yes The following information was validated with the patient. Source: patient, old records reviewed, obtained from family, nursing notes reviewed Medical history: Reports: arthritis, CHF, COPD, coronary artery disease, diabetes, GERD, hyperlipidemia, hypertension, renal disease, thyroid disease, valvular heart disease, other Surgical history: Reports: appendectomy, carotid endarterectomy, cataract, cholecystectomy, heart valve replacement, other Psychiatric history: Reports: anxiety, depression TAR HEEL history: Reports: no TAR HEEL history - Social History Smoking Status: Former smoker Smokeless Tobacco Status: No Alcohol use: Reports: none Drug use: Reports: none Physical Exam - General Limitations: no limitations General appearance: alert, in no apparent distress (Although she seems a little bit anxious about going on.) - Head Head exam: atraumatic, normocephalic, normal inspection - Eye Eye exam: Present: other (The patient has had several surgeries on her left eye due to Graves' disease which has left her left eye abnormal. The right eye has a nicely reactive pupil and EOMI is normal). Absent: scleral icterus, conjunctival injection - ENT ENT exam: normal exam, normal oropharynx, mucous membranes moist, normal external ear exam - Neck Neck exam: Present: normal inspection, full ROM. Absent: meningismus, lymphadenopathy - Chest Chest inspection: Present: normal inspection, symmetric chest wall rise. Absent : tenderness - Respiratory Respiratory exam: Present: normal lung sounds bilaterally. Absent: respiratory distress, wheezes - Cardiovascular Cardiovascular exam: Present: regular rate, normal rhythm, normal heart sounds - Abdominal Exam Abdominal exam: Present: soft, Non-Tender, normal bowel sounds. Absent: distention - Extremities Exam Extremities exam: Present: normal inspection. Absent: pedal edema - Neurological Exam Neurological exam: Present: alert, oriented X3 (She is answering all my questions appropriately although slowly. She response to my commands appropriately although slowly.), CN II-XII intact, reflexes normal. Absent: motor sensory deficit - Psychiatric Psychiatric exam: Present: normal affect, normal mood - Skin Skin exam: Present: warm, dry. Absent: rash Course Course Narrative: Patient presents with some confusion and some head fogginess. I am not finding any focal neurologic deficit on physical examination. She is not complaining of any focal neurologic deficit. She says she does not feel weak and she has had no trouble using her arms or legs. According to the this symptoms have come on today. He says that she is pretty good when she left the house but at the clinic she started having trouble. He says that she gets like this when her sugar goes down. Her sugar was noted to be 60 at the clinic. They tried to get up with oral meds but were unable to do so. At this point, give her some IV glucose and watch her. We will do a workup for causes of altered mental status and confusion. Disposition will be based on diagnostic results and reevaluation. - Reevaluation(s) Reevaluation #1: I have reevaluated the patient several times but this is the first time getting to sit down and document. After we gave her the initial half an amp of D50, she improved and came back to normal mental status. She got up and walked around and was doing fine. However she dropped her sugar again. We had to give her more D50. We then fed her and she really did need a whole lot she just picked at her meal. This concerns me that her sugars been a drop throughout the night because she is not taking the calories in. Thus I think we need to admit her to the hospital for a glucose drip until we know her sugar stabilized. The other issue is that she has noted troponin. Looking at all of her previous labs she has an elevated troponin frequently but usually not this high. Now the patient does not have any chest pain or shortness of breath symptoms or anything else to make me think of cardiac ischemia. Furthermore her EKG is fine. I spoke with Dr. Tejada, the hospitalist to discuss admitting her to the hospital and observing her and following her sugars. We talked about the elevated troponin whether she can stay here for that or needs to be transferred. He asked me to repeat the troponin. If the troponin is not going up and we can keep her here in the hospital. If the troponin is elevated that she is to be transferred to the main hospital. I put the order in for the troponin. Time: 18:53 Reevaluation #2: Troponin went down to 0.09. Patient will be admitted here. We will have her on a D5 drip and we will hold her insulin for the night. She will get serial enzymes while she is here as well. Time: 20:08 - Consultations Consultation #1: Dr. Tejada, hospitalist - I discussed the case with the hospitalist. He accepted the patient for admission here as long as her repeat troponin is not going up. Time: 18:50 Vital Signs Temperature 98.1 F 07/31/17 16:08 Pulse Rate 73 07/31/17 16:08 Respiratory Rate 16 07/31/17 16:08 Blood Pressure 181/79 07/31/17 16:08 O2 Sat by Pulse Oximetry 98 07/31/17 16:08 Temperature 98.1 F 07/31/17 16:08 Pulse Rate 68 07/31/17 19:27 Respiratory Rate 16 07/31/17 19:27 Blood Pressure 143/57 07/31/17 19:27 O2 Sat by Pulse Oximetry 100 07/31/17 19:27 Oxygen Delivery Oxygen Delivery Room Air Medical Decision Making - Medical Records Medical records reviewed: Yes I reviewed the patient's medical records. - Lab Data Lab results reviewed: Yes I reviewed the patient's lab results. Result diagrams: 07/31/17 16:25 07/31/17 16:25 Lab Results 07/31/17 07/31/17 07/31/17 Range/Units 16:25 16:25 16:25 WBC 7.9 (4.3-11.1) K/mcL RBC 4.16 (3.82-4.97) M/mcL Hgb 12.9 (11.5-15.4) g/dL Hct 38.8 (35.3-44.9) % MCV 93.3 (83.0-100.0) fL MCH 31.0 (28.0-33.3) pg MCHC 33.2 (31.6-35.5) g/dL RDW 13.8 (11.5-14.5) % Plt Count 242 (140-400) K/mcL MPV 11.5 (9.4-12.4) fL Immature Gran % 0.4 (0-4) % Seg Neutrophils % 69.0 % Lymphocytes % 18.4 % Monocytes % 10.8 % Eosinophils % 0.9 % Basophils % 0.5 % Neutrophils # 5.5 (1.6-8.9) K/mcL Lymphocytes # 1.5 (0.6-4.6) K/mcL Monocytes # 0.9 (0.0-1.3) K/mcL Eosinophils # 0.1 (0.0-0.6) K/mcL Basophils # 0.0 (0.0-0.2) K/mcL Sample Site ABG pH (7.32-7.45) pH Units ABG pCO2 (35-45) mmHg ABG pO2 (85-104) mmHg ABG HCO3 (21-27) mEq/L ABG Total CO2 (20-26) mEq/L ABG O2 Saturation (95-98) % ABG Base Excess (-2 to 3) mEq/L [place] Test Sodium 132 L (136-145) mEq/L Potassium 4.6 (3.5-5.1) mEq/L Chloride 99 (98-107) mEq/L Carbon Dioxide 24 (23-29) mEq/L BUN 34 H (8-23) mg/dL Creatinine 2.28 H (0.60-1.20) mg/dL Est GFR ( Amer) 25 L (> 60) Est GFR (Non-Af Amer) 21 L (> 60) BUN/Creatinine Ratio 15 (6-26) Glucose 44 L (70-105) mg/dL Calculated Osmolality 279 L (280-300) Lactic Acid 1.7 (0.5-2.2) mmol/L Calcium 9.1 (8.6-10.3) mg/dL Total Bilirubin 0.5 (0.3-1.0) mg/dL Direct Bilirubin 0.1 (0.0-0.2) mg/dL Indirect Bilirubin 0.4 (0.0-1.2) mg/dL AST 34 (13-39) Units/L ALT 58 H (7-52) Units/L Alkaline Phosphatase 122 H (34-104) Units/L Troponin I 0.15 H* (< 0.04) ng/mL Serum Total Protein 7.1 (6.4-8.9) g/dL Albumin 4.0 (3.5-5.7) g/dL Globulin 3.1 (2.4-3.5) g/dL Albumin/Globulin Ratio 1.3 (1.1-2.2) 07/31/17 07/31/17 Range/Units 17:39 19:12 WBC (4.3-11.1) K/mcL RBC (3.82-4.97) M/mcL Hgb (11.5-15.4) g/dL Hct (35.3-44.9) % MCV (83.0-100.0) fL MCH (28.0-33.3) pg MCHC (31.6-35.5) g/dL RDW (11.5-14.5) % Plt Count (140-400) K/mcL MPV (9.4-12.4) fL Immature Gran % (0-4) % Seg Neutrophils % % Lymphocytes % % Monocytes % % Eosinophils % % Basophils % % Neutrophils # (1.6-8.9) K/mcL Lymphocytes # (0.6-4.6) K/mcL Monocytes # (0.0-1.3) K/mcL Eosinophils # (0.0-0.6) K/mcL Basophils # (0.0-0.2) K/mcL Sample Site R Radial ABG pH 7.40 (7.32-7.45) pH Units ABG pCO2 30 L (35-45) mmHg ABG pO2 92 (85-104) mmHg ABG HCO3 18 L (21-27) mEq/L ABG Total CO2 19 L (20-26) mEq/L ABG O2 Saturation 97 (95-98) % ABG Base Excess -5 L (-2 to 3) mEq/L Neymar Test Positive Sodium (136-145) mEq/L Potassium (3.5-5.1) mEq/L Chloride (98-107) mEq/L Carbon Dioxide (23-29) mEq/L BUN (8-23) mg/dL Creatinine (0.60-1.20) mg/dL Est GFR ( Amer) (> 60) Est GFR (Non-Af Amer) (> 60) BUN/Creatinine Ratio (6-26) Glucose (70-105) mg/dL Calculated Osmolality (280-300) Lactic Acid (0.5-2.2) mmol/L Calcium (8.6-10.3) mg/dL Total Bilirubin (0.3-1.0) mg/dL Direct Bilirubin (0.0-0.2) mg/dL Indirect Bilirubin (0.0-1.2) mg/dL AST (13-39) Units/L ALT (7-52) Units/L Alkaline Phosphatase (34-104) Units/L Troponin I 0.09 H* (< 0.04) ng/mL Serum Total Protein (6.4-8.9) g/dL Albumin (3.5-5.7) g/dL Globulin (2.4-3.5) g/dL Albumin/Globulin Ratio (1.1-2.2) - Radiology Data Radiology results reviewed: Yes I reviewed the patient's radiology results. - EKG Data EKG #1 EKG attestation: Yes I reviewed and interpreted this EKG. EKG results narrative: Twelve-lead EKG performed at 1605 p.m. shows sinus rhythm at a rate is 65. Normal axis. Good R-wave progression across precordium. No acute ischemic changes. Intervals are within normal limits.
[2017-07-31 16:48] LABS: Basophils % 0.5 %; Eosinophils # 0.1 K/mcL (0.0-0.6); Eosinophils % 0.9 %; Hematocrit 38.8 % (35.3-44.9); Hemoglobin 12.9 g/dL (11.5-15.4); Immature Granulocytes % 0.4 % (0-4); Lymphocytes # 1.5 K/mcL (0.6-4.6); Lymphocytes % 18.4 %; Mean Corpuscular HGB Conc 33.2 g/dL (31.6-35.5); Mean Corpuscular Volume 93.3 fL (83.0-100.0); Mean Platelet Volume 11.5 fL (9.4-12.4); Monocytes # 0.9 K/mcL (0.0-1.3); Monocytes % 10.8 %; Neutrophils # 5.5 K/mcL (1.6-8.9); Platelet Count 242 K/mcL (140-400); Red Blood Count 4.16 M/mcL (3.82-4.97); Red Cell Distribution Width 13.8 % (11.5-14.5)
[2017-07-31 17:01] LABS: Albumin/Globulin Ratio 1.3 (1.1-2.2); Bilirubin,Direct 0.1 mg/dL (0.0-0.2); Bilirubin,Indirect 0.4 mg/dL (0.0-1.2); Bilirubin,Total 0.5 mg/dL (0.3-1.0); Calcium 9.1 mg/dL (8.6-10.3); Globulin 3.1 g/dL (2.4-3.5); Potassium 4.6 mEq/L (3.5-5.1); Total Protein 7.1 g/dL (6.4-8.9)
[2017-07-31 17:03] LABS: Troponin I 0.15 ng/mL (< 0.04)
[2017-07-31 17:42] LABS: ABG Base Excess -5 mEq/L (-2 to 3); ABG HCO3 18 mEq/L (21-27); ABG Oxygen Saturation 97 % (95-98); ABG PCO2 30 mmHg (35-45); ABG PO2 92 mmHg (85-104); ABG TCO2 19 mEq/L (20-26)
[2017-07-31] MEDS ORDERED: D5% in 0.45% NACL 1,000 ML IVC SCH ×2 (19:00→21:10)
[2017-07-31] MEDS ORDERED: Temazepam 15 MG CAPSULE PO SCH (21:10)
[2017-07-31] MEDS ORDERED: Latanoprost 2.5 ML BOTTLE BOTH EYES SCH (21:10)
[2017-07-31] MEDS ORDERED: (Lubiprostone [Amitiza] 24 MCG) PO PRN (21:10)
[2017-07-31] MEDS ORDERED: Naloxone 0.4 MG/ML INJ IVP PRN (21:10)
[2017-07-31 21:30] LABS: Bilirubin,Urine Negative (Negative); Blood,Urine Negative (Negative); Clarity,Urine Clear (Clear); Glucose,Urine (UA) Normal (Normal); Ketones,Urine Negative (Negative); Leukocyte Esterase,Urine Trace (Negative); Nitrite,Urine Negative (Negative); Protein,Urine 100 mg/dL (Neg-Trace); Urobilinogen,Urine Normal (Normal)
[2017-07-31 21:41] LABS: Color,Urine Light Yellow (Yellow)
[2017-07-31 21:43] LABS: WBC,Urine 0-3 per hpf (0-3)
[2017-07-31] MEDS ORDERED: Acetaminophen 325 MG TABLET PO PRN (23:11)
[2017-07-31] MEDS: Artificial Tears SOLN 15 ML BOTTLE BOTH EYES SCH (23:14)
[2017-08-01 06:42] VITALS: BP 142/63
[2017-08-01] MEDS: Artificial Tears SOLN 15 ML BOTTLE BOTH EYES SCH (08:17)
[2017-08-01] MEDS ORDERED: Aspirin Enteric Coated 81 MG Tablet PO SCH (09:00)
[2017-08-01] MEDS ORDERED: Tiotropium 18 MCG inhalation IH SCH (10:00)
--- NOTE | 2017-08-01 10:56 | Internal Med History&Physical ---
Date of Encounter: 08/01/17 Time of Encounter: 10:00 Assessment and Plan (1) Acute focal neurological deficit Current visit: Yes Status: Acute Suspect atypical seizure versus migraine variant. Symptoms have completely resolved now. I recommend she follow with a neurologist for possible EEG and other evaluation. (2) Bilateral carotid artery stenosis Current visit: Yes Status: Acute Continue aspirin and Plavix. (3) CKD (chronic kidney disease) stage 4, GFR 15-29 ml/min Current visit: No Status: Chronic Will monitor renal indices as needed. (4) Diabetes Current visit: No Status: Chronic Hemoglobin A1c was acceptable at 7.2% on 03/24/2017. Qualifiers: Diabetes mellitus type: type 2 Diabetes mellitus retirement insulin use: with retirement use Diabetes mellitus complication status: with hypoglycemia Diabetes mellitus complication detail: without coma Qualified Code(s): E11.649 - Type 2 diabetes mellitus with hypoglycemia without coma; Z79.4 - MCC (current) use of insulin Internal Medicine - H&P: HPI Chief complaint: Headache, confusion Admitted From: Emergency Dept Plans for Post Hospital Care: Home History of present illness: Ms. Wakefield is a 77 year old female who came to emergency room stating after having a headache for approximately 2 hours at home she had a sudden episode of confusion. She could not recall her name, her 's or son's name, or her address. There was no other focal neurologic deficit noted. She did not take any medication for intervention at home. She came to emergency room and was admitted to [facility] floor for ongoing care needs. She reports the episode was similar to confusion she had approximately 3 weeks ago which led to hospitalization at [facility]. Workup at that time showed carotid ultrasound with unchanged 40-59% bilateral stenoses. She has had bilateral carotid endarterectomies in the past with left side 1997 and right side 2016. She was placed on aspirin and Plavix and had no recurrence of confusion episodes since discharge until yesterday. She reports she has had 1-2 headaches since last discharge without other neurologic deficits associated. She denies documented history of migraine headaches. The headaches are bilateral and seemed to be throbbing in nature. There is photophobia associated. She denies head trauma. She has not had large distribution strokes or seizures. She states she feels back to her baseline now and wishes to be discharged home. Past Med Surg Social Fam HX - Past Medical History Medical history: arthritis, CHF, COPD, coronary artery disease, diabetes, GERD, hyperlipidemia, hypertension, renal disease, thyroid disease, valvular heart disease, other Psychiatric history: anxiety, depression - Past Surgical History Surgical History: appendectomy, carotid endarterectomy, cataract, cholecystectomy, heart valve replacement, other - Social History Smoking Status: Former smoker Smokeless Tobacco Status: No Alcohol use: none Drug use: none - Family History Mother Adopted: No Family Member Ethnicity: Non- Living Status: Hx Family Cardiac Disorders: No Hx Family Respiratory Disorders: No Hx Family Cancer: No Hx Family GI Disorders: No Hx Family Endocrine Disorder: Yes (DM) Hx Family Neuromuscular Disorders: No Hx Family Neurologic Disorders: No Hx Family HEENT Disorders: No Hx Family Autoimmune Disorders: No Father Adopted: No Living Status: Hx Family Cardiac Disorders: Yes (NH, HTN) Internal Medicine - H&P: Meds Carboxymethylcell/Hypromellose [Genteal Gel Drops] 1 drop BOTH EYES BID [History] Latanoprost [Xalatan] 1 drop BOTH EYES HS 07/25/16 [History] Multivit-Min/FA/Lycopen/Lutein [Adults 50+ Multivitamin Tablet] 1 each PO DAILY 03/21/17 [History] Pramipexole [Mirapex] 1 mg PO TID 03/21/17 [History] Clopidogrel [Plavix] 75 mg PO DAILY #30 tablet 07/15/17 [Rx] Albuterol Sulfate [Albuterol Inhaler] 2 puff IH Q4HR PRN 07/31/17 [History] Aspirin [Lo-Dose Aspirin EC] 81 mg PO DAILY 07/31/17 [History] Atorvastatin [Lipitor] 40 mg PO HS 07/31/17 [History] Cholecalciferol (Vitamin D3) [Vitamin D] 2,000 unit PO DAILY 07/31/17 [History] Losartan Potassium [Cozaar] 50 mg PO DAILY 07/31/17 [History] Lubiprostone [Amitiza] 24 mcg PO AD PRN 07/31/17 [History] Pantoprazole Sodium 40 mg PO DAILY 07/31/17 [History] Temazepam [Restoril] 15 mg PO HS 07/31/17 [History] Tiotropium [place] [Spiriva Respimat] 2 puff IH DAILY 07/31/17 [History] 3 Allergy/AdvReac Type Severity Reaction Status Date / Time iodine Allergy Mild Hives Verified 07/13/17 21:02 morphine Allergy Difficulty Verified 07/13/17 21:02 Breathing All Systems PM: A 10-system review of systems was performed and is negative for pertinent findings except as documented above in the HPI. Review of systems: Review of systems from her June 2017 [facility] hospitalization were reviewed and revised as below. Gen.: Her weight increased from 69.485 kg on 02/05/2017 to 77.111 kg April 2017 but decreased to 64.41 kg at present.. Cardiovascular: She has history of hypertension but denies NH. She had a heart catheter 03/19/2015 which showed LVEF of 55%. There was 30% stenosis in the mid RCA, 30% stenosis in the first marginal, and 40% stenosis in the proximal LAD. The LMCA was angiographically free of disease. An echocardiogram done 07/2016 showed LVEF of 60-65%. The interventricular septum and posterior wall thickness measurements were elevated at 1.50 cm each. There was LAE at 4.50 cm. The E/A ratio was 1.3. There was mild aortic regurgitation and a bioprosthetic mitral valve with a gradient 11 mmHg. There was elevated estimated RVSP at 55 mmHg. She reports a leg DVT following the mitral valve replacement surgery at [facility] August 2015. She completed a course of Coumadin for this. She has had bilateral carotid endarterectomy surgery. Respiratory: She smoked from age [age] up to 1 pack per day. She had PFTs 12/28 which showed FVC of 57% predicted. The FEV1/FVC was 66% with significant improvement in FEV1 postbronchodilator. The RV was 130%. DLCO corrected was 40 %. GI: She has had cholecystectomy. She has rare GERD symptoms. She denies disorders of her liver or exocrine pancreas. She reports a colonoscopy done Summer 2016 was negative. 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 She denies other kidney or bladder disorders. Neurologic: As per history of present illness Endocrine: She was diagnosed with DM 2 in 1976. She has hyperlipidemia and hypothyroidism. Hematology/oncology: She has history of anemia. She denies known internal malignancies Psychiatric: She has feelings of depression. Denies anxiety other mental health issues Musk skeletal: She denies arthritis gout or other bone joint or muscle disorders. - Constitutional Vitals: Temp Pulse Resp BP Pulse Ox 97.8 F 63 12 142/63 97 08/01/17 06:39 08/01/17 06:39 08/01/17 09:42 08/01/17 06:39 08/01/17 09:42 Exam: Gen.: She is a well-developed well-nourished female resting comfortably in bed who appears in no acute distress. HEENT: Head is atraumatic and normocephalic. Eyes: EOMI. There is no scleral icterus. Mouth: Mucosa is moist. Neck: Supple and nontender. There is no thyromegaly or adenopathy noted. Heart: Regular without murmurs gallops or ectopics Lungs: No wheezes or crackles are heard. Abdomen: Soft and nontender. No masses or guarding are noted. Extremities: There is no cyanosis edema or clubbing noted. Dorsalis pedis and posterior tibial pulses are trace palpable bilaterally. She has chronic venous stasis pigmentation changes bilaterally of her feet and lower legs. Neurologic: Mental status: She is talkative and a good historian. Her speech is appropriate without any obvious deficits noted. Cranial nerves: Smile is symmetric. Forehead wrinkles bilaterally. Tongue protrudes midline. EOMI. Motor: There is no pronator drift. Ankle flexion and extension strength against resistance is normal and symmetric. Cerebellar: Finger to nose is intact bilaterally. Skin: Warm and dry Internal Med - H&P Results - Labs CBC & Chem 7: 07/31/17 16:25 07/31/17 16:25 Labs: Cardiac Enzymes 08/01/17 08/01/17 Range/Units 03:10 09:17 Troponin I 0.09 H* 0.07 H* (< 0.04) ng/mL Urine 07/31/17 Range/Units 21:15 Urine Color Light Yellow (Yellow) Urine Clarity Clear (Clear) Urine pH 5.0 (5.0-8.0) pH Units Ur Specific [place] 1.010 (1.010-1.025) Urine Protein 100 H (Neg-Trace) mg/dL Urine Glucose (UA) Normal (Normal) mg/dL
--- NOTE | 2017-08-01 11:13 | Discharge Summary ---
Date of Encounter: 08/01/17 Time of Encounter: 10:00 - Discharge Diagnosis (1) Acute focal neurological deficit Priority: Primary Status: Resolved (2) Bilateral carotid artery stenosis Priority: Secondary Status: Chronic (3) CKD (chronic kidney disease) stage 4, GFR 15-29 ml/min Priority: Secondary Status: Chronic (4) Diabetes Priority: Secondary Status: Chronic Qualifiers: Diabetes mellitus type: type 2 Diabetes mellitus meterman insulin use: with meterman use Diabetes mellitus complication status: with hypoglycemia Diabetes mellitus complication detail: without coma Qualified Code(s): E11.649 - Type 2 diabetes mellitus with hypoglycemia without coma; 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 Wakefield is a 77 year old female who came to emergency room stating after having a headache for approximately 2 hours at home she had a sudden episode of confusion. She could not recall her name, her 's or son's name, or her address. There was no other focal neurologic deficit noted. She did not take any medication for intervention at home. She came to emergency room and was admitted to [facility] for ongoing care needs. Initial orders were written by the emergency room physician. I saw her on August 01 and performed a history physical and discharge. By the time I saw her symptoms were completely resolved. She felt back to her baseline and wished to be discharged home which I felt was reasonable. I reviewed her carotid Doppler studies from 07/14/2017 showing bilateral ICA with 40-59% stenosis. I explained to her I did not feel she had a TIA as the cause of her symptoms yesterday. I felt it was more likely to be a migraine headache variant or possible atypical seizure. Recommended she follow with a neurologist for possible EEG or other neurologic evaluation. She will continue present dose of aspirin and Plavix. She will follow with her PCP within 1 week. - Time Spent with Patient Total time spent providing and/or coordinating discharge services: - Discharge Medications Home Medications: Carboxymethylcell/Hypromellose [Genteal Gel Drops] 1 drop BOTH EYES BID [History] Latanoprost [Xalatan] 1 drop BOTH EYES HS 07/25/16 [History] Multivit-Min/FA/Lycopen/Lutein [Adults 50+ Multivitamin Tablet] 1 each PO DAILY 03/21/17 [History] Pramipexole [Mirapex] 1 mg PO TID 03/21/17 [History] Clopidogrel [Plavix] 75 mg PO DAILY #30 tablet 07/15/17 [Rx] Albuterol Sulfate [Albuterol Inhaler] 2 puff IH Q4HR PRN 07/31/17 [History] Aspirin [Lo-Dose Aspirin EC] 81 mg PO DAILY 07/31/17 [History] Atorvastatin [Lipitor] 40 mg PO HS 07/31/17 [History] Cholecalciferol (Vitamin D3) [Vitamin D3] 2,000 unit PO DAILY 07/31/17 [History] Losartan Potassium [Cozaar] 50 mg PO DAILY 07/31/17 [History] Lubiprostone [Amitiza] 24 mcg PO AD PRN 07/31/17 [History] Pantoprazole Sodium 40 mg PO DAILY 07/31/17 [History] Temazepam [Restoril] 15 mg PO HS 07/31/17 [History] Tiotropium [place] [Spiriva Respimat] 2 puff IH DAILY 07/31/17 [History] Allergies/Adverse Reactions: 3 Allergy/AdvReac Type Severity Reaction Status Date / Time iodine Allergy Mild Hives Verified 07/13/17 21:02 morphine Allergy Difficulty Verified 07/13/17 21:02 Breathing Date of admission: 07/31/17 20:48 Primary care physician: Morelia Malcolm - Constitutional Vitals: Temp Pulse Resp BP Pulse Ox 97.8 F 63 12 142/63 97 08/01/17 06:39 08/01/17 06:39 08/01/17 09:42 08/01/17 06:39 08/01/17 09:42 - Patient Status Disposition: Home, Self-Care Condition: Fair Functional capacity at discharge: independent ambulation Overall status at discharge: patient is progressing back to baseline - Discharge Instructions Follow Up With: Morelia Malcolm, DIN[employer] ENGINE OPERATOR [Primary Care Provider] - 1 week - Diet and Activity Activity: resume usual activities as tolerated Diet: advance to your usual diet
== END 2017-08-01 12:10 | disposition home or self-care (01) ==
LOC: EMEROOPIK 16:04 → INPPIK 16:04
PROVIDERS: ADMIT Internal Medicine; ATTEND Internal Medicine

== ENCOUNTER 2017-10-13 21:00 | Observation (INO) ==
[2017-10-13] MEDS ORDERED: *HR* Dextrose 50 % in Water (Syg) 50 ML SYRINGE ONE (21:06)
--- NOTE | 2017-10-13 21:49 | Emergency Department Note ---
Disposition Clinical Impression: Hypoglycemia, Hypoglycemia due to insulin, Hypertensive urgency Altered mental status, unspecified Qualifiers: Altered mental status type: disorientation Qualified Code(s): R41.0 - Disorientation, unspecified Disposition: Admitted As Inpatient Condition: Undetermined Referrals: Frank Zhou MD [Primary Care Provider] - Forms: ED Satisfaction Letter Time of Disposition: 01:10 (Dr Tejada accepted the pt) Altered Mental Status HPI - General Chief Complaint: ED Weakness Stated Complaint: weakness Source: family Mode of arrival: ambulatory Limitations: no limitations - History of Present Illness HPI Narrative: Patient is a pleasant 77-year-old female with past medical history significant for TIA, diabetes mellitus and hypertension for presented by her who states that she has altered mental status, confusion and very low blood sugar. Patient is unable to give history and. The states that she was at normal state of health until a few hours prior to admission when he notices that she is confused. She is unable to state how much insulin she took today but the stated that she has not been eating or drinking well. He denies any head injury or traumatic events. He denies any fever or chills. He did not notice any vomiting or diarrhea. He says that every time her sugar goes down she became confused. He cannot describe how much insulin she took but he says that she takes insulin 4 times per day. The patient is lethargic she opened her eyes on the repetitive commands but otherwise is a very poor historian. Review other system is challenging and is obtained mainly from nursing notes and the . complaint: altered mental status, confusion, decreased responsiveness Onset (ago): hour(s) Timing confirmed by: family member Pain Severity: moderate Pain Scale: 5 Consistency of Symptoms: getting worse Context: history of similar presentation Associated symptoms: Reports: denies other symptoms, loss of appetite Treatments prior to arrival: glucose - Related Data Home Medications Medication Instructions Recorded Confirmed Carboxymethylcell/Hypromellose 1 drop BOTH EYES BID 07/25/16 09/21/17 [Genteal Gel Drops] Latanoprost [Xalatan] 1 drop BOTH EYES HS 07/25/16 09/21/17 Multivit-Min/FA/Lycopen/Lutein 1 each PO DAILY 03/21/17 09/21/17 [Adults 50+ Multivitamin Tablet] Pramipexole [Mirapex] 1 mg PO TID 03/21/17 09/21/17 Albuterol Sulfate [Albuterol 2 puff IH Q4HR PRN 07/31/17 09/21/17 Inhaler] Aspirin [Lo-Dose Aspirin EC] 81 mg PO DAILY 07/31/17 09/21/17 Atorvastatin [Lipitor] 40 mg PO HS 07/31/17 09/21/17 Cholecalciferol (Vitamin D3) 2,000 unit PO DAILY 07/31/17 09/21/17 [Vitamin D3] Losartan Potassium [Cozaar] 50 mg PO DAILY 07/31/17 09/21/17 Lubiprostone [Amitiza] 24 mcg PO AD PRN 07/31/17 09/21/17 Pantoprazole Sodium 40 mg PO DAILY 07/31/17 09/21/17 Temazepam [Restoril] 15 mg PO HS 07/31/17 07/31/17 Tiotropium Elba [Spiriva 2 puff IH DAILY 07/31/17 07/31/17 Respimat] Previous Rx's Medication Instructions Recorded Clopidogrel [Plavix] 75 mg PO DAILY #30 tablet 07/15/17 Sulfamethoxazole/Trimeth DS 1 each PO BID #20 tablet 08/29/17 [Bactrim DS] Nitrofurantoin Monohyd/M-Cryst 100 mg PO BID #10 capsule 09/21/17 [Macrobid 100 mg Capsule] Allergies Allergy/AdvReac Type Severity Reaction Status Date / Time iodine Allergy Mild Hives Verified 10/13/17 21:20 morphine Allergy Difficulty Verified 10/13/17 21:20 Breathing All systems ED: reviewed and negative except as stated. Review of Systems: As Per HPI Past Medical History - Past Medical History Medical history: Reports: cardiomyopathy, diabetes, hypertension Surgical history: Reports: appendectomy, carotid endarterectomy, cataract, cholecystectomy, heart valve replacement, other Psychiatric history: Reports: anxiety, depression [employer] history: Reports: no [employer] history - Social History Smoking Status: Never smoker Smokeless Tobacco Status: No Alcohol use: Reports: none Drug use: Reports: none Physical Exam - General Limitations: altered mental status General appearance: lethargic - Head Head exam: atraumatic, normocephalic, normal inspection - Eye Eye exam: Present: normal appearance, PERRL, EOMI - Expanded Eye Exam Pupils: Left: reactive - ENT ENT exam: normal exam, normal oropharynx, mucous membranes moist - Expanded ENT Exam External ear exam: Present: normal external inspection Mouth exam: Present: normal external inspection Teeth exam: Present: normal inspection Throat exam: Present: normal inspection - Neck Neck exam: Present: normal inspection, full ROM, trachea midline - Chest Chest inspection: Present: normal inspection, symmetric chest wall rise - Respiratory Respiratory exam: Present: normal lung sounds bilaterally - Cardiovascular Cardiovascular exam: Present: regular rate, normal rhythm, normal heart sounds - Abdominal Exam Abdominal exam: Present: soft, Non-Tender. Absent: tenderness, distention, guarding, rebound, rigidity - Extremities Exam Extremities exam: Present: normal inspection, full ROM. Absent: tenderness, pedal edema - Expanded Upper Extremity Exam Shoulder exam: Present: normal inspection, full ROM Arm exam: Present: normal inspection, full ROM Elbow exam: Present: normal inspection, full ROM Forearm/Wrist exam: Present: normal inspection, full ROM Hand exam: Present: normal inspection, full ROM Vascular exam: Normal: capillary refill, radial pulse - Expanded Lower Extremity Exam Hip/Pelvis exam: Present: normal inspection, full ROM Upper leg exam: Present: normal inspection, full ROM Knee exam: Present: normal inspection, full ROM Lower leg exam: Present: normal inspection, full ROM Ankle exam: Present: normal inspection, full ROM Foot/toe exam: Present: normal inspection, full ROM Neurovascular/Tendon exam: Absent: motor deficit, sensory deficit, tendon deficit - Back Exam Back exam: Present: normal inspection, full ROM. Absent: tenderness - Neurological Exam Neurological exam: Present: other (The patient appears lethargic and she was unable to give Unser stool where she is she mumbles and closes her eyes exam overall is nonfocal no right or left-sided weakness and facial exam is unremarkable she will his extremities equally) - Expanded Neurological Exam Patient oriented to: Present: person, place, time Coma Scale Eye Opening: Spontaneous Coma Scale Motor Response: Obeys Commands Coma Scale Verbal Response: Oriented Coma Scale Total: 15 - Psychiatric Psychiatric exam: Present: flat affect - Skin Skin exam: Present: warm, dry, intact, normal color Course Vital Signs Temperature 96.9 F L 10/13/17 21:01 Pulse Rate 58 10/13/17 21:01 Respiratory Rate 20 10/13/17 21:01 Blood Pressure 246/93 10/13/17 21:01 O2 Sat by Pulse Oximetry 99 06/25/18 21:01 Temperature 96.9 F L 10/13/17 21:01 Pulse Rate 77 10/14/17 00:58 Respiratory Rate 13 10/14/17 00:58 Blood Pressure 150/61 10/14/17 00:58 O2 Sat by Pulse Oximetry 98 10/14/17 00:58 Oxygen Delivery Oxygen Delivery Room Air Altered Mental Status - Differential Diagnosis Likely: altered mental status, delirium, hypoglycemia, psychiatric disease, sepsis - Medical Records Medical records reviewed: Yes I reviewed the patient's medical records. - Lab Data Lab results reviewed: Yes I reviewed the patient's lab results. Result diagrams: 10/13/17 22:08 10/13/17 22:08 Lab Results 10/13/17 10/13/17 10/13/17 Range/Units 22:08 22:08 22:08 WBC 7.6 (4.3-11.1) K/mcL RBC 4.17 (3.82-4.97) M/mcL Hgb 13.1 (11.5-15.4) g/dL Hct 38.9 (35.3-44.9) % MCV 93.3 (83.0-100.0) fL MCH 31.4 (28.0-33.3) pg MCHC 33.7 (31.6-35.5) g/dL RDW 13.0 (11.5-14.5) % Plt Count 188 (140-400) K/mcL MPV 11.4 (9.4-12.4) fL Immature Gran % 0.4 (0-4) % Seg Neutrophils % 75.8 % Lymphocytes % 14.4 % Monocytes % 7.3 % Eosinophils % 1.7 % Basophils % 0.4 % Neutrophils # 5.7 (1.6-8.9) K/mcL Lymphocytes # 1.1 (0.6-4.6) K/mcL Monocytes # 0.6 (0.0-1.3) K/mcL Eosinophils # 0.1 (0.0-0.6) K/mcL Basophils # 0.0 (0.0-0.2) K/mcL PT 10.7 (9.4-12.1) Seconds INR 1.0 APTT 42.3 H (26.0-36.0) Seconds Sample Site ABG pH (7.32-7.45) pH Units ABG pCO2 (35-45) mmHg ABG pO2 (85-104) mmHg ABG HCO3 (21-27) mEq/L ABG Total CO2 (20-26) mEq/L ABG O2 Saturation (95-98) % ABG Base Excess (-2 to 3) mEq/L Neymar Test O2 Delivery Device Sodium 136 (136-145) mEq/L Potassium 4.0 (3.5-5.1) mEq/L Chloride 106 (98-107) mEq/L Carbon Dioxide 22 L (23-29) mEq/L BUN 35 H (8-23) mg/dL Creatinine 1.91 H (0.60-1.20) mg/dL Est GFR ( Amer) 31 L (> 60) Est GFR (Non-Af Amer) 25 L (> 60) BUN/Creatinine Ratio 18 (6-26) Glucose 75 (70-105) mg/dL Calculated Osmolality 289 (280-300) Calcium 9.5 (8.6-10.3) mg/dL Total Bilirubin 0.5 (0.3-1.0) mg/dL Direct Bilirubin 0.1 (0.0-0.2) mg/dL Indirect Bilirubin 0.4 (0.0-1.2) mg/dL AST 15 (13-39) Units/L ALT 18 (7-52) Units/L Alkaline Phosphatase 110 H (34-104) Units/L Ammonia (16-53) mcmol/L Creatine Kinase 37 (30-223) Units/L Troponin I < 0.03 (< 0.04) ng/mL Serum Total Protein 7.3 (6.4-8.9) g/dL Albumin 4.2 (3.5-5.7) g/dL Globulin 3.1 (2.4-3.5) g/dL Albumin/Globulin Ratio 1.4 (1.1-2.2) Urine Color (Yellow) Urine Clarity (Clear) Urine pH (5.0-8.0) pH Units Ur Specific [place] (1.010-1.025) Urine Protein (Neg-Trace) mg/dL Urine Glucose (UA) (Normal) mg/dL Urine Ketones (Negative) mg/dL Urine Blood (Negative) Urine Nitrite (Negative) Urine Bilirubin (Negative) Urine Urobilinogen (Normal) mg/dL Ur Leukocyte Esterase (Negative) Urine Microscopic RBC (0-3) per hpf Urine Microscopic WBC (0-3) per hpf Ur Squamous Epith Cells (None-Few) per lpf Urine Bacteria (None-Few) per hpf Hyaline Casts (None-Few) per lpf Granular Casts (None Seen) per lpf Ur Culture Indicated? (NO) Urine Opiates Screen (Qncdal=435) ng/mL Ur Oxycodone Screen (Cutoff= 100) ng/mL Ur Barbiturates Screen (Spcwce=402) ng/mL Ur Phencyclidine Scrn (Cutoff=25) ng/mL Ur Amphetamines Screen (Wrmoyl=2508) ng/mL U Benzodiazepines Scrn (Gzpgka=592) ng/mL Urine Cocaine Screen (Cutoff= 300) ng/mL U Marijuana (THC) Screen (Cutoff = 50) ng/mL Ethyl Alcohol < 10 (Less than 10) mg/dL Person Notif of Crit 10/13/17 10/13/17 10/13/17 Range/Units 22:08 22:40 22:40 WBC (4.3-11.1) K/mcL RBC (3.82-4.97) M/mcL Hgb (11.5-15.4) g/dL Hct (35.3-44.9) % MCV (83.0-100.0) fL MCH (28.0-33.3) pg MCHC (31.6-35.5) g/dL RDW (11.5-14.5) % Plt Count (140-400) K/mcL MPV (9.4-12.4) fL Immature Gran % (0-4) % Seg Neutrophils % % Lymphocytes % % Monocytes % % Eosinophils % % Basophils % % Neutrophils # (1.6-8.9) K/mcL Lymphocytes # (0.6-4.6) K/mcL Monocytes # (0.0-1.3) K/mcL Eosinophils # (0.0-0.6) K/mcL Basophils # (0.0-0.2) K/mcL PT (9.4-12.1) Seconds INR APTT (26.0-36.0) Seconds Sample Site ABG pH (7.32-7.45) pH Units ABG pCO2 (35-45) mmHg ABG pO2 (85-104) mmHg ABG HCO3 (21-27) mEq/L ABG Total CO2 (20-26) mEq/L ABG O2 Saturation (95-98) % ABG Base Excess (-2 to 3) mEq/L Neymar Test O2 Delivery Device Sodium (136-145) mEq/L Potassium (3.5-5.1) mEq/L Chloride (98-107) mEq/L Carbon Dioxide (23-29) mEq/L BUN (8-23) mg/dL Creatinine (0.60-1.20) mg/dL Est GFR ( Amer) (> 60) Est GFR (Non-Af Amer) (> 60) BUN/Creatinine Ratio (6-26) Glucose (70-105) mg/dL Calculated Osmolality (280-300) Calcium (8.6-10.3) mg/dL Total Bilirubin (0.3-1.0) mg/dL Direct Bilirubin (0.0-0.2) mg/dL Indirect Bilirubin (0.0-1.2) mg/dL AST (13-39) Units/L ALT (7-52) Units/L Alkaline Phosphatase (34-104) Units/L Ammonia 41 (16-53) mcmol/L Creatine Kinase (30-223) Units/L Troponin I (< 0.04) ng/mL Serum Total Protein (6.4-8.9) g/dL Albumin (3.5-5.7) g/dL Globulin (2.4-3.5) g/dL Albumin/Globulin Ratio (1.1-2.2) Urine Color Light Yellow (Yellow) Urine Clarity Clear (Clear) Urine pH 7.0 (5.0-8.0) pH Units Ur Specific [place] 1.020 (1.010-1.025) Urine Protein >=300 H (Neg-Trace) mg/dL Urine Glucose (UA) 100 H (Normal) mg/dL Urine Ketones Negative (Negative) mg/dL Urine Blood Trace-lysed H (Negative) Urine Nitrite Negative (Negative) Urine Bilirubin Negative (Negative) Urine Urobilinogen Normal (Normal) mg/dL Ur Leukocyte Esterase Negative (Negative) Urine Microscopic RBC 0-3 (0-3) per hpf Urine Microscopic WBC 0-3 (0-3) per hpf Ur Squamous Epith Cells Few (None-Few) per lpf Urine Bacteria Few (None-Few) per hpf Hyaline Casts Few (None-Few) per lpf Granular Casts Few H (None Seen) per lpf Ur Culture Indicated? NO (NO) Urine Opiates Screen Negative (Ccaruk=732) ng/mL Ur Oxycodone Screen Negative (Cutoff= 100) ng/mL Ur Barbiturates Screen Negative (Mlllhl=049) ng/mL Ur Phencyclidine Scrn Negative (Cutoff=25) ng/mL Ur Amphetamines Screen Negative (Zjaspi=4258) ng/mL U Benzodiazepines Scrn Negative (Bzduzc=208) ng/mL Urine Cocaine Screen Negative (Cutoff= 300) ng/mL U Marijuana (THC) Screen Negative (Cutoff = 50) ng/mL Ethyl Alcohol (Less than 10) mg/dL Person Notif of Crit 10/14/17 Range/Units 01:03 WBC (4.3-11.1) K/mcL RBC (3.82-4.97) M/mcL Hgb (11.5-15.4) g/dL Hct (35.3-44.9) % MCV (83.0-100.0) fL MCH (28.0-33.3) pg MCHC (31.6-35.5) g/dL RDW (11.5-14.5) % Plt Count (140-400) K/mcL MPV (9.4-12.4) fL Immature Gran % (0-4) % Seg Neutrophils % % Lymphocytes % % Monocytes % % Eosinophils % % Basophils % % Neutrophils # (1.6-8.9) K/mcL Lymphocytes # (0.6-4.6) K/mcL Monocytes # (0.0-1.3) K/mcL Eosinophils # (0.0-0.6) K/mcL Basophils # (0.0-0.2) K/mcL PT (9.4-12.1) Seconds INR APTT (26.0-36.0) Seconds Sample Site L Radial ABG pH 7.36 (7.32-7.45) pH Units ABG pCO2 37 (35-45) mmHg ABG pO2 38 L* (85-104) mmHg ABG HCO3 21 (21-27) mEq/L ABG Total CO2 22 (20-26) mEq/L ABG O2 Saturation 70 L (95-98) % ABG Base Excess -4 L (-2 to 3) mEq/L Neymar Test Positive O2 Delivery Device Room Air Sodium (136-145) mEq/L Potassium (3.5-5.1) mEq/L Chloride (98-107) mEq/L Carbon Dioxide (23-29) mEq/L BUN (8-23) mg/dL Creatinine (0.60-1.20) mg/dL Est GFR ( Amer) (> 60) Est GFR (Non-Af Amer) (> 60) BUN/Creatinine Ratio (6-26) Glucose (70-105) mg/dL Calculated Osmolality (280-300) Calcium (8.6-10.3) mg/dL Total Bilirubin (0.3-1.0) mg/dL Direct Bilirubin (0.0-0.2) mg/dL Indirect Bilirubin (0.0-1.2) mg/dL AST (13-39) Units/L ALT (7-52) Units/L Alkaline Phosphatase (34-104) Units/L Ammonia (16-53) mcmol/L Creatine Kinase (30-223) Units/L Troponin I (< 0.04) ng/mL Serum Total Protein (6.4-8.9) g/dL Albumin (3.5-5.7) g/dL Globulin (2.4-3.5) g/dL Albumin/Globulin Ratio (1.1-2.2) Urine Color (Yellow) Urine Clarity (Clear) Urine pH (5.0-8.0) pH Units Ur Specific [place] (1.010-1.025) Urine Protein (Neg-Trace) mg/dL Urine Glucose (UA) (Normal) mg/dL Urine Ketones (Negative) mg/dL Urine Blood (Negative) Urine Nitrite (Negative) Urine Bilirubin (Negative) Urine Urobilinogen (Normal) mg/dL Ur Leukocyte Esterase (Negative) Urine Microscopic RBC (0-3) per hpf Urine Microscopic WBC (0-3) per hpf Ur Squamous Epith Cells (None-Few) per lpf Urine Bacteria (None-Few) per hpf Hyaline Casts (None-Few) per lpf Granular Casts (None Seen) per lpf Ur Culture Indicated? (NO) Urine Opiates Screen (Kcnvyw=699) ng/mL Ur Oxycodone Screen (Cutoff= 100) ng/mL Ur Barbiturates Screen (Rsepyn=897) ng/mL Ur Phencyclidine Scrn (Cutoff=25) ng/mL Ur Amphetamines Screen (Nqtmzj=4161) ng/mL U Benzodiazepines Scrn (Cwmoow=363) ng/mL Urine Cocaine Screen (Cutoff= 300) ng/mL U Marijuana (THC) Screen (Cutoff = 50) ng/mL Ethyl Alcohol (Less than 10) mg/dL Person Notif of Eli Fagan MD - Radiology Data Radiology results reviewed: Yes I reviewed the patient's radiology results. - EKG Data EKG attestation: Yes I reviewed and interpreted this EKG. Ectopy: PVC When compared to previous EKG there are: no significant changes TPA Checklist - LKW: 3-4.5 hrs Add. Warnings/Precautions Patient/family understanding: The patient/family members have been counseled and understood the risk, benefit , and alternatives of treatment.
[2017-10-13] MEDS ORDERED: Aspirin 81 MG TAB.CHEW PO ONE (21:54)
[2017-10-13] MEDS: Nitroglycerin 0.4 MG TAB.SUBL SL PRN ×3 (22:08→22:19)
[2017-10-13 22:19] LABS: Basophils % 0.4 %; Eosinophils # 0.1 K/mcL (0.0-0.6); Eosinophils % 1.7 %; Hematocrit 38.9 % (35.3-44.9); Hemoglobin 13.1 g/dL (11.5-15.4); Immature Granulocytes % 0.4 % (0-4); Lymphocytes # 1.1 K/mcL (0.6-4.6); Lymphocytes % 14.4 %; Mean Corpuscular HGB Conc 33.7 g/dL (31.6-35.5); Mean Corpuscular Hemoglobin 31.4 pg (28.0-33.3); Mean Corpuscular Volume 93.3 fL (83.0-100.0); Mean Platelet Volume 11.4 fL (9.4-12.4); Monocytes # 0.6 K/mcL (0.0-1.3); Monocytes % 7.3 %; Neutrophils # 5.7 K/mcL (1.6-8.9); Platelet Count 188 K/mcL (140-400); Red Blood Count 4.17 M/mcL (3.82-4.97); Segmented Neutrophils % 75.8 %
[2017-10-13 22:26] LABS: Prothrombin Time 10.7 Seconds (9.4-12.1)
[2017-10-13 22:28] LABS: Activated Partial Thrombo Time 42.3 Seconds (26.0-36.0)
[2017-10-13 22:37] LABS: Alanine Aminotransferase 18 Units/L (7-52); Albumin 4.2 g/dL (3.5-5.7); Albumin/Globulin Ratio 1.4 (1.1-2.2); Alkaline Phosphatase 110 Units/L (34-104); Aspartate Amino Transferase 15 Units/L (13-39); BUN/Creatinine Ratio 18 (6-26); Bilirubin,Direct 0.1 mg/dL (0.0-0.2); Bilirubin,Indirect 0.4 mg/dL (0.0-1.2); Bilirubin,Total 0.5 mg/dL (0.3-1.0); Blood Urea Nitrogen 35 mg/dL (8-23); Calcium 9.5 mg/dL (8.6-10.3); Carbon Dioxide 22 mEq/L (23-29); Chloride 106 mEq/L (98-107); Creatine Kinase 37 Units/L (30-223); Ethanol < 10 mg/dL (Less than 10); Globulin 3.1 g/dL (2.4-3.5); Glucose 75 mg/dL (70-105); Osmolality,Calculated 289 (280-300); Sodium 136 mEq/L (136-145); Total Protein 7.3 g/dL (6.4-8.9); eGFR For African Americans 31 (> 60); eGFR For Non-African Americans 25 (> 60)
[2017-10-13 22:43] LABS: Troponin I < 0.03 ng/mL (< 0.04)
[2017-10-13 22:50] LABS: Bilirubin,Urine Negative (Negative); Blood,Urine Trace-lysed (Negative); Clarity,Urine Clear (Clear); Color,Urine Light Yellow (Yellow); Glucose,Urine (UA) 100 mg/dL (Normal); Ketones,Urine Negative (Negative); Leukocyte Esterase,Urine Negative (Negative); Nitrite,Urine Negative (Negative); Protein,Urine >=300 mg/dL (Neg-Trace); Urobilinogen,Urine Normal (Normal)
[2017-10-13 22:56] LABS: RBC,Urine 0-3 per hpf (0-3); Squamous Epithelial Cell,Urine Few per lpf (None-Few); WBC,Urine 0-3 per hpf (0-3)
[2017-10-13 22:57] LABS: Amphetamine Screen,Urine Negative ng/mL (Cutoff=1000); Bacteria,Urine Few per hpf (None-Few); Barbiturate Screen,Urine Negative ng/mL (Cutoff=200); Benzodiazepines Screen,Urine Negative ng/mL (Cutoff=200); Cannabinoid Screen,Urine Negative ng/mL (Cutoff = 50); Cocaine Screen,Urine Negative ng/mL (Cutoff= 300); Granular Casts,Urine Few per lpf (None Seen); Hyaline Casts,Urine Few per lpf (None-Few); Opiate Screen,Urine Negative ng/mL (Cutoff=300); Phencyclidine Screen,Urine Negative ng/mL (Cutoff=25)
[2017-10-14 01:11] LABS: ABG Base Excess -4 mEq/L (-2 to 3); ABG HCO3 21 mEq/L (21-27); ABG Oxygen Saturation 70 % (95-98); ABG PCO2 37 mmHg (35-45); ABG PH 7.36 pH Units (7.32-7.45); ABG TCO2 22 mEq/L (20-26)
[2017-10-14 01:21] LABS: ABG PO2 38 mmHg (85-104)
[2017-10-14] MEDS ORDERED: Naloxone 0.4 MG/ML INJ IVP PRN ×2 (01:47→03:07)
[2017-10-14] MEDS ORDERED: Acetaminophen 325 MG TABLET PO PRN ×2 (01:47→03:07)
[2017-10-14] MEDS ORDERED: Nitroglycerin 0.4 MG TAB.SUBL SL PRN (03:07)
[2017-10-14] MEDS ORDERED: Artificial Tears SOLN 15 ML BOTTLE BOTH EYES SCH (09:00)
[2017-10-14] MEDS ORDERED: Aspirin Enteric Coated 81 MG Tablet PO SCH (09:00)
[2017-10-14] MEDS ORDERED: Cholecalciferol (D-3) 1,000 UNIT TABLET PO SCH (09:00)
[2017-10-14] MEDS ORDERED: amLODIPine 5 MG TABLET PO ONE (13:40)
[2017-10-14 15:15] VITALS: BP 187/84
--- NOTE | 2017-10-14 16:17 | Internal Med History&Physical ---
Date of Encounter: 10/14/17 Time of Encounter: 15:35 Assessment and Plan (1) Acute focal neurological deficit Current visit: No Status: Resolved Likely TIA, now resolved. She will restart aspirin and Plavix for now. Can possibly discontinue one of these soon if remains stable. (2) Hypertensive urgency Current visit: Yes Status: Acute Blood pressure now improved. I told her she should discuss with her PCP consideration for modification of her antihypertensive medication regimen. Internal Medicine - H&P: HPI Chief complaint: Face numbness, dysphasia Admitted From: Home Plans for Post Hospital Care: Home History of present illness: Ms. Wakefield is a 77 year old female who came to emergency room stating she had sudden onset onset of dysarthria and dysphasia with right face numbness approximately 2 PM the day of admission while doing usual duties at home. She had feelings of hot followed by cold. Blood pressure check showed systolic reading 257. She came to emergency room and was evaluated and admitted for ongoing care needs. She has had hospitalizations at [facility] June and July 2017 with confusion where she could not recall the names of herself, her , her son. She reports she has not been taking aspirin and Plavix for several weeks. She reports the Plavix was stopped for colonoscopy and apparently was not restarted. She feels back to her baseline now. She has known ASCVD with carotid ultrasound June 2017 showing unchanged 40-59% bilateral stenosis. She has not had large distribution strokes or seizures. She has not had documented migraine headaches. She had MRI August 2017 which did not show acute pathology. She states she has seen Dr. Gutierrez at [facility] who ordered the MRI and has also scheduled a sleep deprivation EEG in the future. Past Med Surg Social Fam HX - Past Medical History Medical history: cardiomyopathy, diabetes, hypertension Additional medical history: RESTLESS LEG SYNDROME, [place] CAROTID STENOSIS. Psychiatric history: anxiety, depression - Past Surgical History Surgical History: appendectomy, carotid endarterectomy, cataract, cholecystectomy, heart valve replacement, other Additional surgical history: Mitral Valve replacement (porcine) - Social History Smoking Status: Never smoker Smokeless Tobacco Status: No Alcohol use: none Drug use: none - Family History Mother Adopted: No Family Member Ethnicity: Non- Living Status: Hx Family Cardiac Disorders: No Hx Family Respiratory Disorders: No Hx Family Cancer: No Hx Family GI Disorders: No Hx Family Endocrine Disorder: Yes (DM) Hx Family Neuromuscular Disorders: No Hx Family Neurologic Disorders: No Hx Family HEENT Disorders: No Hx Family Autoimmune Disorders: No Father Adopted: No Living Status: Hx Family Cardiac Disorders: Yes (GA, HTN) Internal Medicine - H&P: Meds Carboxymethylcell/Hypromellose [Genteal Gel Drops] 1 drop BOTH EYES BID [History] Latanoprost [Xalatan] 1 drop BOTH EYES HS 07/25/16 [History] Multivit-Min/FA/Lycopen/Lutein [Adults 50+ Multivitamin Tablet] 1 each PO DAILY 03/21/17 [History] Pramipexole [Mirapex] 1 mg PO TID 03/21/17 [History] Clopidogrel [Plavix] 75 mg PO DAILY #30 tablet 07/15/17 [Rx] Albuterol Sulfate [Albuterol Inhaler] 2 puff IH Q4HR PRN 07/31/17 [History] Aspirin [Lo-Dose Aspirin EC] 81 mg PO DAILY 07/31/17 [History] Atorvastatin [Lipitor] 40 mg PO BID 07/31/17 [History] Cholecalciferol (Vitamin D3) [Vitamin D3] 1,000 unit PO DAILY 07/31/17 [History] Losartan Potassium [Cozaar] 50 mg PO DAILY 07/31/17 [History] Temazepam [Restoril] 15 mg PO HS 07/31/17 [History] Aspirin [Lo-Dose Aspirin EC] 81 mg PO DAILY 10/14/17 [History] Brimonidine Tartrate/Timolol [Combigan Eye Drops] 5 ml OP BID 10/14/17 [History] Brinzolamide 1% [Azopt] 1 drop BOTH EYES BID 10/14/17 [History] Esomeprazole Magnesium [Nexium] 40 mg PO BID 10/14/17 [History] Insulin ASPART [Novolog Flexpen] 100 unit SQ 10/14/17 [History] Insulin DETEMIR [Levemir] 100 unit SQ HS 10/14/17 [History] Latanoprost [Xalatan] 2.5 ml OP HS 10/14/17 [History] Losartan [Cozaar] 50 mg PO DAILY 10/14/17 [History] Propylene Glycol/Peg 400 [Systane 0.3-0.4% Eye Drops] 15 ml OP QID 10/14/17 [ History] Ropinirole HCl [Requip] 4 mg PO DAILY PRN 10/14/17 [History] Tizanidine HCl [Zanaflex] 4 mg PO HS 10/14/17 [History] 3 Allergy/AdvReac Type Severity Reaction Status Date / Time iodine Allergy Mild Hives Verified 10/13/17 21:20 morphine Allergy Difficulty Verified 10/13/17 21:20 Breathing All Systems PM: A 10-system review of systems was performed and is negative for pertinent findings except as documented above in the HPI. Review of systems: Review of systems from her July 2017 [facility] hospitalization were reviewed and revised as below. Gen.: Her weight increased from 69.485 kg on 02/05/2017 to 77.111 kg April 2017 but decreased to 64.864 kg at present.. Cardiovascular: She has history of hypertension but denies GA. She had a heart catheter 03/19/2015 which showed LVEF of 55%. There was 30% stenosis in the mid RCA, 30% stenosis in the first marginal, and 40% stenosis in the proximal LAD. The LMCA was angiographically free of disease. An echocardiogram done 07/2016 showed LVEF of 60-65%. The interventricular septum and posterior wall thickness measurements were elevated at 1.50 cm each. There was LAE at 4.50 cm. The E/A ratio was 1.3. There was mild aortic regurgitation and a bioprosthetic mitral valve with a gradient 11 mmHg. There was elevated estimated RVSP at 55 mmHg. She reports a leg DVT following the mitral valve replacement surgery at [facility] August 2015. She completed a course of Coumadin for this. She has had bilateral carotid endarterectomy surgery. Carotid duplex study 07/14/2017 showed bilateral ICA 40-59% stenosis Respiratory: She smoked from age [age] up to 1 pack per day. She had PFTs 12/28 which showed FVC of 57% predicted. The FEV1/FVC was 66% with significant improvement in FEV1 postbronchodilator. The RV was 130%. DLCO corrected was 40 %. GI: She has had cholecystectomy. She has rare GERD symptoms. She denies disorders of her liver or exocrine pancreas. She reports a colonoscopy done Summer 2016 was negative. : She has chronic kidney disease stage 3-4 and follows with a [place] staffing coordinator. She denies other kidney or bladder disorders. Neurologic: As per history of present illness Endocrine: She was diagnosed with DM 2 in 1976. She has hyperlipidemia and hypothyroidism. Hematology/oncology: She has history of anemia. She denies known internal malignancies Psychiatric: She has feelings of depression. Denies anxiety other mental health issues Musk skeletal: She denies arthritis gout or other bone joint or muscle disorders. - Constitutional Vitals: Temp Pulse Resp BP Pulse Ox 98.7 F 79 17 187/84 96 10/14/17 13:49 10/14/17 15:14 10/14/17 13:49 10/14/17 15:14 10/14/17 13:49 Exam: Gen.: She is a well that well-nourished female resting comfortably in bed who appears in no acute distress. HEENT: Head is atraumatic and normocephalic. Eyes: EOMI. There is no scleral icterus. She appears to have slight ptosis of the left upper eyelid. Mouth: Mucosa is moist Neck: Supple and nontender. There is no thyromegaly or adenopathy noted. Heart: Regular without murmurs gallops or ectopics Lungs: No wheezes or crackles are heard. Abdomen: Soft and nontender. No masses or guarding are noted. Extremities: There is no cyanosis edema or clubbing noted. Dorsalis pedis and posttibial pulses are 1-2 over 2 bilaterally. Neurologic: Mental status: She is talkative and a good historian. Cranial nerves: Smile is symmetric. Forehead wrinkles bilaterally. Tongue protrudes midline. EOMI. Motor: There is no pronator drift. Rapid finger movements are intact symmetrically. Leg flexion and extension strength at the ankle against resistance is normal. Cerebellar: Finger to nose is intact bilaterally. Skin: Warm and dry Internal Med - H&P Results - Labs CBC & Chem 7: 10/13/17 22:08 10/13/17 22:08
--- NOTE | 2017-10-14 16:25 | Electrocardiograph Report ---
[address] [place], [place] [address] Test Date: 2017-10-13 Pat Name: Maria Antonia Wakefield Department: [id number] Room: [facility] Gender: F Treatment Manager: [id number] : 1940 Requested By: Rolanda Fagan Order Number: [id number] Reading MD: Teodora Gerber Measurements Intervals [place] Rate: 63 P: 49 [place]: 169 QRS: 25 QRSD: 109 T: 78 QT: 434 QTc: 441 Interpretive Statements SINUS RHYTHM WITH OCCASIONAL VENTRICULAR PREMATURE COMPLEXES POSSIBLE LEFT ATRIAL ENLARGEMENT MINIMAL ST DEPRESSION Electronically Signed On 10-14-2017 16:23:47 EDT by Teodora Gerber
--- NOTE | 2017-10-14 16:28 | Discharge Summary ---
Date of Encounter: 10/14/17 Time of Encounter: 15:35 - Discharge Diagnosis (1) Acute focal neurological deficit Priority: Primary Status: Resolved (2) Hypertensive urgency Priority: Secondary Status: Acute Hospital course: Ms. Wakefield is a 77 year old female who came to emergency room stating she had sudden onset onset of dysarthria and dysphasia with right face numbness approximately 2 PM the day of admission while doing usual duties at home. She had feelings of hot followed by cold. Blood pressure check showed systolic reading 257. She came to emergency room and was evaluated and admitted for ongoing care needs. Initial orders were written by the emergency room physician saw her on October 14 and performed the history physical and discharge. By the time I saw her the neurologic deficits had resolved. I suspected it was likely TIA from description. She admitted she had not been off aspirin and Plavix for several weeks. She will restart these. Blood pressure should be monitored and medication adjustment can be made by her PCP. She was to be discharged home which I felt was reasonable. She will follow with her PCP within 1 week. She will follow up with neurologist as directed. - Time Spent with Patient Total time spent providing and/or coordinating discharge services: - Discharge Medications Prescriptions: Clopidogrel [Plavix] 75 mg PO DAILY #30 tablet Home Medications: Carboxymethylcell/Hypromellose [Genteal Gel Drops] 1 drop BOTH EYES BID [History] Latanoprost [Xalatan] 1 drop BOTH EYES HS 07/25/16 [History] Multivit-Min/FA/Lycopen/Lutein [Adults 50+ Multivitamin Tablet] 1 each PO DAILY 03/21/17 [History] Pramipexole [Mirapex] 1 mg PO TID 03/21/17 [History] Albuterol Sulfate [Albuterol Inhaler] 2 puff IH Q4HR PRN 07/31/17 [History] Aspirin [Lo-Dose Aspirin EC] 81 mg PO DAILY 07/31/17 [History] Atorvastatin [Lipitor] 40 mg PO BID 07/31/17 [History] Cholecalciferol (Vitamin D3) [Vitamin D3] 1,000 unit PO DAILY 07/31/17 [History] Losartan Potassium [Cozaar] 50 mg PO DAILY 07/31/17 [History] Temazepam [Restoril] 15 mg PO HS 07/31/17 [History] Aspirin [Lo-Dose Aspirin EC] 81 mg PO DAILY 10/14/17 [History] Brimonidine Tartrate/Timolol [Combigan 0.2%-0.5% Eye Drops] 5 ml OP BID [History] Brinzolamide 1% [Azopt] 1 drop BOTH EYES BID 10/14/17 [History] Clopidogrel [Plavix] 75 mg PO DAILY #30 tablet 10/14/17 [Rx] Esomeprazole Magnesium [Nexium] 40 mg PO BID 10/14/17 [History] Insulin ASPART [Novolog Flexpen] 100 unit SQ 10/14/17 [History] Insulin DETEMIR [Levemir] 100 unit SQ HS 10/14/17 [History] Latanoprost [Xalatan] 2.5 ml OP HS 10/14/17 [History] Losartan [Cozaar] 50 mg PO DAILY 10/14/17 [History] Propylene Glycol/Peg 400 [Systane 0.3-0.4% Eye Drops] 15 ml OP QID 10/14/17 [ History] Ropinirole HCl [Requip] 4 mg PO DAILY PRN 10/14/17 [History] Tizanidine HCl [Zanaflex] 4 mg PO HS 10/14/17 [History] Allergies/Adverse Reactions: 3 Allergy/AdvReac Type Severity Reaction Status Date / Time iodine Allergy Mild Hives Verified 10/13/17 21:20 morphine Allergy Difficulty Verified 10/13/17 21:20 Breathing Date of admission: 10/14/17 02:20 Primary care physician: Frank Zhou MD - Constitutional Vitals: Temp Pulse Resp BP Pulse Ox 98.7 F 79 17 187/84 96 10/14/17 13:49 10/14/17 15:14 10/14/17 13:49 10/14/17 15:14 10/14/17 13:49 - Patient Status Disposition: Home, Self-Care Condition: Undetermined Overall status at discharge: patient is back to baseline - Discharge Instructions Follow Up With: Frank Zhou MD [Primary Care Provider] - 1 week - Diet and Activity Activity: resume usual activities as tolerated Diet: advance to your usual diet
[2017-10-14] MEDS ORDERED: Latanoprost 2.5 ML BOTTLE BOTH EYES SCH (21:00)
== END 2017-10-14 17:30 | disposition home or self-care (01) ==
LOC: EMEROOPIK 21:00 → INPPIK 21:00
PROVIDERS: ADMIT Internal Medicine; ATTEND Internal Medicine

== ENCOUNTER 2017-12-01 00:57 | Observation (INO) ==
--- NOTE | 2017-12-01 01:18 | Emergency Department Note ---
Disposition Clinical Impression: CKD (chronic kidney disease) stage 4, GFR 15-29 ml/min, Hyponatremia, Hyperkalemia Disposition: Admitted As Inpatient Condition: Fair Referrals: Frank Zhou MD [Primary Care Provider] - Forms: ED Satisfaction Letter, Work/School Release Headache HPI - General Chief Complaint: ED General Medical Stated Complaint: headache and numbness in left arm Time Seen by Provider: 12/01/17 01:10 Source: patient, family Mode of arrival: private vehicle Limitations: no limitations Nursing Notes Reviewed: Yes Vital Signs Reviewed: Yes - History of Present Illness HPI Narrative: Patient presents to the ED complaining of headache, cough, congestion and a brief episode of numbness in her left arm. States that she has had an intermittent frontal headache over the past few days. Current headache started between 7 and 8 PM last night. She describes it as an ache across her forehead. States it is only a 4 out of 10 now but was worse earlier before she took 2 baby aspirin. She reports a dry cough for the past 2 days along with a sore throat, nasal congestion and rhinorrhea. She reports chills but no fever. She states she felt nauseous yesterday evening but did not vomit. She had some shortness of breath when she felt nauseated but this is now gone. She also had an episode of numbness in her left arm last night around 10 PM. She states it lasted approximately 15 minutes and went away on its own. She states she had one brief sharp pain that went down her arm below her elbow during the episode of numbness but has not had any recurrence of this pain or the numbness since. There was never any weakness or trouble moving the arm. She denies any chest pain, palpitations, diaphoresis, lightheadedness or dizziness currently or during the episode of numbness in her arm. Numbness has not reoccurred. Her only current symptom is very mild nausea as well as a residual headache. states they checked her glucose around 11:30 PM and it was 137. Patient has a history of diabetes, cardiomyopathy, high blood pressure, mitral valve replacement and carotid stenosis that was treated with bilateral endarterectomies. Chart mentions history and suspicion of TIA and CVA in the past although patient denies ever being diagnosed with this. She reports compliance with her aspirin and Plavix. Pain Scale: 4 - Related Data Home Medications Medication Instructions Recorded Confirmed Carboxymethylcell/Hypromellose 1 drop BOTH EYES BID 07/25/16 12/01/17 [Genteal Gel Drops] Latanoprost [Xalatan] 1 drop BOTH EYES HS 07/25/16 12/01/17 Multivit-Min/FA/Lycopen/Lutein 1 each PO DAILY 03/21/17 12/01/17 [Adults 50+ Multivitamin Tablet] Pramipexole [Mirapex] 0.25 mg PO DAILY 03/21/17 12/01/17 Albuterol Sulfate [Albuterol 2 puff IH Q4HR PRN 07/31/17 12/01/17 Inhaler] Atorvastatin [Lipitor] 40 mg PO BID 07/31/17 12/01/17 Cholecalciferol (Vitamin D3) 1,000 unit PO DAILY 07/31/17 12/01/17 [Vitamin D3] Temazepam [Restoril] 15 mg PO HS PRN 07/31/17 12/01/17 Aspirin [Lo-Dose Aspirin EC] 81 mg PO DAILY 10/14/17 12/01/17 Brimonidine Tartrate/Timolol 5 ml OP BID 10/14/17 12/01/17 [Combigan 0.2%-0.5% Eye Drops] Brinzolamide 1% [Azopt] 1 drop BOTH EYES BID 10/14/17 12/01/17 Esomeprazole Magnesium [Nexium] 40 mg PO BID 10/14/17 12/01/17 Insulin ASPART [Novolog Flexpen] 1 unit SQ TID 10/14/17 12/01/17 Insulin DETEMIR [Levemir] 100 unit SQ HS 10/14/17 12/01/17 Losartan [Cozaar] 50 mg PO DAILY 10/14/17 12/01/17 Ropinirole HCl [Requip] 4 mg PO DAILY PRN 10/14/17 12/01/17 Tizanidine HCl [Zanaflex] 4 mg PO HS 10/14/17 12/01/17 Previous Rx's Medication Instructions Recorded Clopidogrel [Plavix] 75 mg PO DAILY #30 tablet 10/14/17 Allergies Allergy/AdvReac Type Severity Reaction Status Date / Time iodine Allergy Mild Hives Verified 12/01/17 01:06 morphine Allergy Difficulty Verified 12/01/17 01:06 Breathing Constitutional: Reports: chills. Denies: fever, weakness, weight change Eyes: Denies: eye pain, eye discharge, vision change ENT ED: Reports: throat pain, congestion. Denies: ear pain, dental pain, hearing loss, epistaxis, dysphagia Cardiovascular: Denies: chest pain, palpitations, dyspnea on exertion, edema, syncope Respiratory: Reports: cough, dyspnea (resolved). Denies: wheezes, hemoptysis, stridor Gastrointestinal: Reports: nausea. Denies: abdominal pain, vomiting, diarrhea, constipation, hematemesis, melena, hematochezia Genitourinary: Denies: dysuria, frequency, hematuria, discharge Musculoskeletal: Denies: back pain, neck pain, arthralgia, myalgia Integumentary: Denies: rash, abrasion, lesions Neurological: Reports: as per HPI, headache, numbness. Denies: weakness, paresthesias, confusion, abnormal gait, vertigo Psychiatric: Denies: anxiety, depression, suicidal thoughts, homicidal thoughts , auditory hallucinations, visual hallucinations Endocrine: Denies: fatigue Hematological/Lymphatic: Denies: easy bleeding, easy bruising Allergic/Immunologic: Denies: facial swelling, urticaria Headache PMH - Past Medical History Medical history: Reports: cardiomyopathy, diabetes, hypertension Female Surgical History: Reports: appendectomy, carotid endarterectomy, cataract , cholecystectomy, heart valve replacement, other Psychiatric history: Reports: anxiety, depression WIRE DRAWER history: Reports: no WIRE DRAWER history - Social History Smoking Status: Never smoker Alcohol use: Reports: none Drug use: Reports: none Physical Exam - General Limitations: no limitations General appearance: alert, in no apparent distress - Head Head exam: atraumatic, normocephalic, normal inspection - Eye Eye exam: Present: normal appearance, PERRL, EOMI - ENT ENT exam: normal exam, normal oropharynx, mucous membranes moist, TM's normal bilaterally, normal external ear exam - Expanded ENT Exam Nose exam: negative: rhinorrhea, sinus tenderness Throat exam: Present: normal inspection, tonsillar erythema. Absent: tonsillomegaly, tonsillar exudate - Neck Neck exam: Present: normal inspection, full ROM, trachea midline - Chest Chest inspection: Present: normal inspection, symmetric chest wall rise - Respiratory Respiratory exam: Present: normal lung sounds bilaterally - Cardiovascular Cardiovascular exam: Present: regular rate, normal rhythm, systolic murmur - Abdominal Exam Abdominal exam: Present: soft, Non-Tender, normal bowel sounds. Absent: tenderness, distention, guarding, rebound, rigidity - Extremities Exam Extremities exam: Present: normal inspection, full ROM, normal capillary refill. Absent: tenderness, pedal edema - Expanded Upper Extremity Exam Shoulder exam: Present: normal inspection, full ROM Arm exam: Present: normal inspection, full ROM Elbow exam: Present: normal inspection, full ROM Forearm/Wrist exam: Present: normal inspection, full ROM Hand exam: Present: normal inspection, full ROM Vascular exam: Normal: capillary refill, radial pulse - Expanded Lower Extremity Exam Hip/Pelvis exam: Present: normal inspection, full ROM Upper leg exam: Present: normal inspection, full ROM Knee exam: Present: normal inspection, full ROM Lower leg exam: Present: normal inspection, full ROM Ankle exam: Present: normal inspection, full ROM Foot/toe exam: Present: normal inspection, full ROM Neurovascular/Tendon exam: Absent: motor deficit, sensory deficit, tendon deficit - Back Exam Back exam: Present: normal inspection, full ROM. Absent: tenderness - Neurological Exam Neurological exam: Present: alert, oriented X3, CN II-XII intact, normal gait, reflexes normal. Absent: motor sensory deficit - Expanded Neurological Exam Speech: Present: fluid speech Motor strength - LUE: 5/5 Motor strength - RUE: 5/5 Motor strength - LLE: 5/5 Motor strength - RLE: 5/5 Upper motor neuron exam: keo neglect: Absent bilaterally, pronator drift: Absent bilaterally Sensory exam upper extremity: light touch: Normal Coma Scale Eye Opening: Spontaneous Coma Scale Motor Response: Obeys Commands Coma Scale Verbal Response: Oriented Coma Scale Total: 15 - Psychiatric Psychiatric exam: Present: normal affect, normal mood - Skin Skin exam: Present: warm, dry, intact, normal color Course Course Narrative: Patient presents to the ED complaining of a headache as well as a prior episode of shortness of breath, numbness in her left arm and nausea along with some cough, congestion, sore throat and chills. On arrival blood pressure is slightly elevated at 167/77 she is otherwise hemodynamically stable without tachycardia, tachypnea or fever. She is nontoxic in appearance. Physical exam including detailed neurologic exam is unremarkable at this time. Patient's constellation of symptoms however is concerning for possible atypical cardiac presentation or possible TIA although symptoms have resolved at this time. Will give Tylenol for the residual headache and obtain lab work, chest x-ray and EKG. Will monitor closely. - Reevaluation(s) Reevaluation #1: EKG shows a sinus rhythm with some ST depression and prolonged QT interval. QTC is 20 ms longer than on her previous EKG on October 13. The ST depression is unchanged and there are no new ischemic changes. CBC is unremarkable. BMP however shows mild hyponatremia and hyperkalemia. Troponin is negative. Creatinine has increased since her last labs and has been steadily increasing over the past few months. I suspect declining kidney function is the cause of her hyperkalemia as she does not take any supplements. Will treat the hyperkalemia and give gentle IV fluids for the hyponatremia. Chest x-ray did not show any pneumonia or other acute pathology. Given patient's electrolyte abnormalities and need for gentle hydration she would benefit from overnight admission and continued monitoring with repeat lab work. Patient and are in agreement. I spoke to the hospitalist on-call, Dr. Tejada, who has agreed to accept the patient. Vital Signs Temperature 98.0 F 12/01/17 00:59 Pulse Rate 65 12/01/17 00:59 Respiratory Rate 16 12/01/17 00:59 Blood Pressure 167/77 12/01/17 00:59 O2 Sat by Pulse Oximetry 95 12/01/17 00:59 Temperature 98.0 F 12/01/17 00:59 Pulse Rate 62 12/01/17 02:22 Respiratory Rate 20 12/01/17 02:18 Blood Pressure 154/54 12/01/17 02:22 O2 Sat by Pulse Oximetry 97 12/01/17 02:18 Oxygen Delivery Oxygen Delivery Room Air Headache - Medical Records Medical records reviewed: Yes I reviewed the patient's medical records. - Lab Data Lab results reviewed: Yes I reviewed the patient's lab results. Result diagrams: 12/01/17 02:03 12/01/17 02:03 Lab Results 12/01/17 12/01/17 12/01/17 Range/Units 02:03 02:03 02:03 WBC 8.8 (4.3-11.1) K/mcL RBC 4.00 (3.82-4.97) M/mcL Hgb 12.3 (11.5-15.4) g/dL Hct 36.8 (35.3-44.9) % MCV 92.0 (83.0-100.0) fL MCH 30.8 (28.0-33.3) pg MCHC 33.4 (31.6-35.5) g/dL RDW 12.7 (11.5-14.5) % Plt Count 183 (140-400) K/mcL MPV 11.6 (9.4-12.4) fL Immature Gran % 0.3 (0-4) % Seg Neutrophils % 75.7 % Lymphocytes % 13.0 % Monocytes % 9.7 % Eosinophils % 1.0 % Basophils % 0.3 % Neutrophils # 6.7 (1.6-8.9) K/mcL Lymphocytes # 1.2 (0.6-4.6) K/mcL Monocytes # 0.9 (0.0-1.3) K/mcL Eosinophils # 0.1 (0.0-0.6) K/mcL Basophils # 0.0 (0.0-0.2) K/mcL PT 11.9 (9.4-12.1) Seconds INR 1.1 Sodium 130 L (136-145) mEq/L Potassium 5.4 H (3.5-5.1) mEq/L Chloride 98 (98-107) mEq/L Carbon Dioxide 23 (23-29) mEq/L BUN 38 H (8-23) mg/dL Creatinine 2.48 H (0.60-1.20) mg/dL Est GFR ( Amer) 23 L (> 60) Est GFR (Non-Af Amer) 19 L (> 60) BUN/Creatinine Ratio 15 (6-26) Glucose 132 H (70-105) mg/dL Calculated Osmolality 281 (280-300) Calcium 8.9 (8.6-10.3) mg/dL Troponin I 0.03 (< 0.04) ng/mL - Radiology Data Radiology results reviewed: Yes I reviewed the patient's radiology results. ITS Impressions Chest X-Ray 12/01/17 01:37 IMPRESSION: No findings suspicious for pneumonia.. Stable exam. D/ / Dayday Ceron / Dayday Ceron Interpreting Provider: Dayday Ceron - EKG Data EKG attestation: Yes I reviewed and interpreted this EKG. EKG shows normal: sinus rhythm Rate: normal Rhythm: NSR Carbon/QRS: normal ST segment depression in: v5, v6 QTc: prolonged When compared to previous EKG there are: changes noted (increased QTc)
[2017-12-01] MEDS ORDERED: Acetaminophen 325 MG TABLET PO ONE (01:38)
[2017-12-01 02:20] LABS: Basophils % 0.3 %; Eosinophils # 0.1 K/mcL (0.0-0.6); Hematocrit 36.8 % (35.3-44.9); Hemoglobin 12.3 g/dL (11.5-15.4); Immature Granulocytes % 0.3 % (0-4); Lymphocytes # 1.2 K/mcL (0.6-4.6); Mean Corpuscular HGB Conc 33.4 g/dL (31.6-35.5); Mean Corpuscular Hemoglobin 30.8 pg (28.0-33.3); Mean Platelet Volume 11.6 fL (9.4-12.4); Monocytes # 0.9 K/mcL (0.0-1.3); Monocytes % 9.7 %; Neutrophils # 6.7 K/mcL (1.6-8.9); Platelet Count 183 K/mcL (140-400); Red Cell Distribution Width 12.7 % (11.5-14.5); Segmented Neutrophils % 75.7 %
[2017-12-01 02:24] LABS: INR 1.1; Prothrombin Time 11.9 Seconds (9.4-12.1)
[2017-12-01 02:32] LABS: Calcium 8.9 mg/dL (8.6-10.3); Potassium 5.4 mEq/L (3.5-5.1)
[2017-12-01 02:36] LABS: Troponin I 0.03 ng/mL (< 0.04)
[2017-12-01] MEDS ORDERED: *HR* Dextrose 50 % in Water (Syg) 50 ML SYRINGE IVP ONE (02:51)
[2017-12-01] MEDS ORDERED: Insulin Human Regular 10 UNIT in 0.9 % Sodium Chloride 10 ML IV ONE (02:51)
[2017-12-01] MEDS ORDERED: 0.9 % Sodium Chloride 1,000 ML IVC SCH ×2 (03:00→04:39)
[2017-12-01] MEDS ORDERED: Naloxone 0.4 MG/ML INJ IVP PRN ×2 (03:24→04:39)
[2017-12-01] MEDS ORDERED: D5% in Water 1,000 ML IVC PRN ×2 (03:25→04:39)
[2017-12-01] MEDS ORDERED: *HR* Dextrose 50 % in Water (Syg) 50 ML SYRINGE IVP PRN ×2 (03:25→04:39)
[2017-12-01] MEDS ORDERED: Dextrose Gel 15 GM/37.5 ML TUBE PO PRN ×4 (03:25→04:39)
[2017-12-01] MEDS ORDERED: Temazepam 15 MG CAPSULE PO PRN (04:39)
[2017-12-01] MEDS ORDERED: rOPINIRole 1 MG TABLET PO PRN (04:39)
[2017-12-01] MEDS ORDERED: Insulin LISPRO 300 UNITS/3 ML VIAL SQ SCH ×3 (07:30→21:00)
[2017-12-01] MEDS: Multivit/Ca/Min/Fe/FA 1 TAB TABLET PO SCH (07:43)
[2017-12-01] MEDS: Aspirin Enteric Coated 81 MG Tablet PO SCH (07:44)
[2017-12-01] MEDS: Artificial Tears SOLN 15 ML BOTTLE BOTH EYES SCH ×2 (07:44→21:14)
[2017-12-01] MEDS: Cholecalciferol (D-3) 1,000 UNIT TABLET PO SCH (07:44)
[2017-12-01] MEDS: Insulin LISPRO 300 UNITS/3 ML VIAL SQ SCH ×3 (07:46→16:47)
--- NOTE | 2017-12-01 08:00 | Electrocardiograph Report ---
[address] [place], [place] [address] Test Date: 2017-12-01 Pat Name: Maria Antonia Wakefield Department: 9201 Room: [facility] Gender: F Chief Medical Technologist: [id number] : 1940 Requested By: Sherron Sims Order Number: [id number] Reading MD: Alber Cervantes Measurements Intervals [place] Rate: 60 P: 43 ND: 153 QRS: 6 QRSD: 108 T: 66 QT: 460 QTc: 462 Interpretive Statements SINUS RHYTHM PROLONGED QT INTERVAL Electronically Signed On 12-01-2017 7:58:12 EDT by Alber Cervantes
[2017-12-01] MEDS ORDERED: Brinzolamide 1% 10 ML BOTTLE BOTH EYES SCH (09:00)
[2017-12-01] MEDS ORDERED: INSULIN ASPART 1 UNIT SQ SCH (09:00)
--- NOTE | 2017-12-01 10:28 | Internal Med History&Physical ---
Date of Encounter: 12/01/17 Time of Encounter: 10:05 Assessment and Plan (1) Hyperkalemia Current visit: Yes Status: Acute She was given Kayexalate in emergency room. Hold losartan and continue IV fluids. Recheck labs in a.m. (2) Acute worsening of stage 4 chronic kidney disease Current visit: No Status: Acute As above (3) Headache Current visit: No Status: Resolved Will not workup further at this time since resolved. Qualifiers: Headache type: other headache syndrome Qualified Code(s): G44.89 - Other headache syndrome (4) High blood pressure Current visit: Yes Status: Chronic Will hold losartan because of hyperkalemia. Start amlodipine. Qualifiers: Hypertension type: essential hypertension Qualified Code(s): I10 - Essential (primary) hypertension Internal Medicine - H&P: HPI Chief complaint: Headache, left arm numbness, Admitted From: Emergency Dept Plans for Post Hospital Care: Home History of present illness: Ms. Wakefield is a 77 year old female who came to emergency room stating she had headaches onset November 29. She took aspirin Tylenol with no significant improvement. Over the next ER she noticed she was dizzy/lightheaded when she loco from a seated position. She denies vertigo. The following day she noticed some numbness and tingling in her left arm. She became concerned and came to emergency room for evaluation. She was found to have acute on chronic renal insufficiency with hyperkalemia. She was admitted to [facility] floor for ongoing care needs. She states her headache and left arm numbness have resolved. She denies previous similar episodes. She denies past strokes or seizures. Deepak will TIA September 2017 with overnight admission at [facility]. Aspirin and Plavix were restarted after she had stopped taking them for several weeks previous to admission. She has known ASCVD with carotid ultrasound June 2017 showing unchanged 40-59% bilateral stenosis. She has had previous bilateral carotid endarterectomies. She has not had large distribution strokes or seizures. She has not had documented migraine headaches. She had brain MRI August 2017 which did not show acute pathology. Past Med Surg Social Fam HX - Past Medical History Medical history: cardiomyopathy, diabetes, hypertension Additional medical history: RESTLESS LEG SYNDROME, [place] CAROTID STENOSIS. Psychiatric history: anxiety, depression - Past Surgical History Surgical History: appendectomy, carotid endarterectomy, cataract, cholecystectomy, heart valve replacement, other Additional surgical history: Mitral Valve replacement (porcine), stents, heart cath twice, left eye surgery, left heel spur, nasal sx,. and glaucoma SX - Social History Smoking Status: Never smoker Smokeless Tobacco Status: No Alcohol use: none Drug use: none - Family History Mother Adopted: No Family Member Ethnicity: Non- Living Status: Hx Family Cardiac Disorders: No Hx Family Respiratory Disorders: No Hx Family Cancer: No Hx Family GI Disorders: No Hx Family Endocrine Disorder: Yes (DM) Hx Family Neuromuscular Disorders: No Hx Family Neurologic Disorders: No Hx Family HEENT Disorders: No Hx Family Autoimmune Disorders: No Father Adopted: No Living Status: Hx Family Cardiac Disorders: Yes ([place], HTN) Internal Medicine - H&P: Meds Carboxymethylcell/Hypromellose [Genteal Gel Drops] 1 drop BOTH EYES BID [History] Latanoprost [Xalatan] 1 drop BOTH EYES HS 07/25/16 [History] Multivit-Min/FA/Lycopen/Lutein [Adults 50+ Multivitamin Tablet] 1 each PO DAILY 03/21/17 [History] Pramipexole [Mirapex] 0.25 mg PO DAILY 03/21/17 [History] Albuterol Sulfate [Albuterol Inhaler] 2 puff IH Q4HR PRN 07/31/17 [History] Atorvastatin [Lipitor] 40 mg PO HS 07/31/17 [History] Cholecalciferol (Vitamin D3) [Vitamin D3] 1,000 unit PO DAILY 07/31/17 [History] Temazepam [Restoril] 15 mg PO HS PRN 07/31/17 [History] Aspirin [Lo-Dose Aspirin EC] 81 mg PO DAILY 10/14/17 [History] Brimonidine Tartrate/Timolol [Combigan 0.2%-0.5% Eye Drops] 5 ml OP BID [History] Brinzolamide 1% [Azopt] 1 drop BOTH EYES BID 10/14/17 [History] Clopidogrel [Plavix] 75 mg PO DAILY #30 tablet 10/14/17 [Rx] Esomeprazole Magnesium [Nexium] 40 mg PO BID 10/14/17 [History] Insulin ASPART [Novolog Flexpen] 1 unit SQ TID 10/14/17 [History] Insulin DETEMIR [Levemir] 28 unit SQ HS 10/14/17 [History] Losartan [Cozaar] 50 mg PO DAILY 10/14/17 [History] Ropinirole HCl [Requip] 4 mg PO DAILY PRN 10/14/17 [History] Tizanidine HCl [Zanaflex] 4 mg PO HS 10/14/17 [History] 3 Allergy/AdvReac Type Severity Reaction Status Date / Time iodine Allergy Mild Hives Verified 12/01/17 01:06 morphine Allergy Difficulty Verified 12/01/17 01:06 Breathing All Systems PM: A 10-system review of systems was performed and is negative for pertinent findings except as documented above in the HPI. Review of systems: Review of systems from her September 2017 [facility] hospitalization were reviewed and revised as below. Gen.: Her weight increased from 69.485 kg on 02/05/2017 to 77.111 kg April 2017 but decreased to 70.76 kg at present.. Cardiovascular: She has history of hypertension but denies [place]. She had a heart catheter 03/19/2015 which showed LVEF of 55%. There was 30% stenosis in the mid RCA, 30% stenosis in the first marginal, and 40% stenosis in the proximal LAD. The LMCA was angiographically free of disease. An echocardiogram done 07/2016 showed LVEF of 60-65%. The interventricular septum and posterior wall thickness measurements were elevated at 1.50 cm each. There was LAE at 4.50 cm. The E/A ratio was 1.3. There was mild aortic regurgitation and a bioprosthetic mitral valve with a gradient 11 mmHg. There was elevated estimated RVSP at 55 mmHg. She reports a leg DVT following the mitral valve replacement surgery at [facility] August 2015. She completed a course of Coumadin for this. She has had bilateral carotid endarterectomy surgery. Carotid duplex study 07/14/2017 showed bilateral ICA 40-59% stenosis Respiratory: She smoked from age [age] up to 1 pack per day. She had PFTs 12/28 which showed FVC of 57% predicted. The FEV1/FVC was 66% with significant improvement in FEV1 postbronchodilator. The RV was 130%. DLCO corrected was 40 %. GI: She has had cholecystectomy. She has rare GERD symptoms. She denies disorders of her liver or exocrine pancreas. She reports a colonoscopy done Summer 2016 was negative. : She has chronic kidney disease stage 3-4 and follows with a [place] [employer]. She denies other kidney or bladder disorders. Neurologic: As per history of present illness Endocrine: She was diagnosed with DM 2 in 1976. She has hyperlipidemia and hypothyroidism. Hematology/oncology: She has history of anemia. She denies known internal malignancies Psychiatric: She has feelings of depression. Denies anxiety other mental health issues Musk skeletal: She denies arthritis gout or other bone joint or muscle disorders. - Constitutional Vitals: Temp Pulse Resp BP Pulse Ox 98.3 F 73 17 141/59 96 12/01/17 07:24 12/01/17 07:24 12/01/17 07:24 12/01/17 07:24 12/01/17 07:24 Exam: Gen.: She is well-developed well-nourished female resting comfortably in bed who appears in no acute distress HEENT: Head is atraumatic and normal cephalic. Eyes: EOMI. There is no scleral icterus. Mouth: Mucosa is moist. Neck: Supple and nontender with no thyromegaly or adenopathy noted. She has bilateral well-healed carotid endarterectomy scars. Heart: Regular without murmurs gallops or ectopics. Lungs: No wheezes or crackles are heard. Abdomen: Soft and nontender. No masses or guarding are noted. Extremities: There is no cyanosis edema or clubbing noted. Dorsalis pedis and posttibial pulses are trace palpable bilaterally. She has chronic venous stasis pigmentation changes of her lower legs and feet bilaterally. Neurologic: Mental status: She is talkative and a good historian. Cranial nerves: Smile is symmetric. Forehead wrinkles bilaterally. Tongue protrudes midline. EOMI. Motor: There is no pronator drift. Rapid finger movements are intact symmetrically. Cerebellar: Finger to nose is intact bilaterally. Skin: Warm and dry Internal Med - H&P Results - Labs CBC & Chem 7: 12/01/17 02:03 12/01/17 02:03 - VTE Reasons for not Prescribing Prophylaxis: Treatment not Indicated - Low risk for VTE
[2017-12-01] MEDS: amLODIPine 5 MG TABLET PO SCH (11:34)
[2017-12-01] MEDS ORDERED: tiZANidine 4 MG TABLET PO SCH (21:00)
[2017-12-01] MEDS ORDERED: Latanoprost 2.5 ML BOTTLE BOTH EYES SCH (21:00)
[2017-12-01] MEDS ORDERED: Insulin DETEMIR 100 UNIT/ML X5UNITS SQ SCH ×2 (21:00)
[2017-12-01] MEDS: BRINZOLAMIDE 1% OP SCH (21:15)
[2017-12-01] MEDS: GuaiFENesin Liq 200 MG/10 ML UDC PO PRN (21:15)
[2017-12-02] MEDS: GuaiFENesin Liq 200 MG/10 ML UDC PO PRN (03:21)
[2017-12-02 07:39] LABS: Calcium 8.1 mg/dL (8.6-10.3); Potassium 3.8 mEq/L (3.5-5.1)
[2017-12-02 07:46] LABS: Thyroid Stimulating Hormone 3.21 mcIU/mL (0.340-5.600)
[2017-12-02] MEDS: Insulin LISPRO 300 UNITS/3 ML VIAL SQ SCH (08:26)
[2017-12-02] MEDS: amLODIPine 5 MG TABLET PO SCH (08:42)
[2017-12-02] MEDS: Aspirin Enteric Coated 81 MG Tablet PO SCH (08:42)
[2017-12-02] MEDS: Multivit/Ca/Min/Fe/FA 1 TAB TABLET PO SCH (08:43)
[2017-12-02] MEDS: Cholecalciferol (D-3) 1,000 UNIT TABLET PO SCH (08:43)
[2017-12-02] MEDS: Artificial Tears SOLN 15 ML BOTTLE BOTH EYES SCH (08:44)
[2017-12-02] MEDS: BRINZOLAMIDE 1% OP SCH (08:44)
--- NOTE | 2017-12-02 09:55 | Discharge Summary ---
Orders not resulted at time of discharge: Pending orders 12/02/17 06:50 Folate AM 0400 Date of Encounter: 12/02/17 Time of Encounter: 09:45 - Discharge Diagnosis (1) Hyperkalemia Priority: Primary Status: Resolved (2) Acute worsening of stage 4 chronic kidney disease Priority: Secondary Status: Resolved (3) Headache Priority: Secondary Status: Resolved Qualifiers: Headache type: other headache syndrome Qualified Code(s): G44.89 - Other headache syndrome (4) High blood pressure Priority: Secondary Status: Chronic Qualifiers: Hypertension type: essential hypertension Qualified Code(s): I10 - Essential (primary) hypertension Hospital course: Ms. Wakefield is a 77 year old female who came to emergency room stating she had headaches onset November 29. She took aspirin Tylenol with no significant improvement. Over the next ER she noticed she was dizzy/lightheaded when she loco from a seated position. She denies vertigo. The following day she noticed some numbness and tingling in her left arm. She became concerned and came to emergency room for evaluation. She was found to have acute on chronic renal insufficiency with hyperkalemia. She was admitted to [facility] for ongoing care needs. Initial orders were written by the emergency room physician. I saw her on December 01 and performed a history and physical. She was given Kayexalate in emergency room. Losartan was discontinued. Potassium level returned to normal at 3.8 on the following day. Amlodipine was given for blood pressure control and she remained stable. She will continue amlodipine and remain off losartan at discharge. She had no further headache or left arm tingling after admission. Azotemia improved with creatinine decreasing to 2.18 on day of discharge. Her PCP can continue to monitor. She felt stable for discharge home on December 02. She will follow with her PCP within 1 week. - Time Spent with Patient Total time spent providing and/or coordinating discharge services: - Discharge Medications Prescriptions: amLODIPine [Norvasc] 5 mg PO DAILY #30 tablet Home Medications: Carboxymethylcell/Hypromellose [Genteal Gel Drops] 1 drop BOTH EYES BID [History] Latanoprost [Xalatan] 1 drop BOTH EYES HS 07/25/16 [History] Multivit-Min/FA/Lycopen/Lutein [Adults 50+ Multivitamin Tablet] 1 each PO DAILY 03/21/17 [History] Pramipexole [Mirapex] 0.25 mg PO DAILY 03/21/17 [History] Albuterol Sulfate [Albuterol Inhaler] 2 puff IH Q4HR PRN 07/31/17 [History] Atorvastatin [Lipitor] 40 mg PO HS 07/31/17 [History] Cholecalciferol (Vitamin D3) [Vitamin D3] 1,000 unit PO DAILY 07/31/17 [History] Temazepam [Restoril] 15 mg PO HS PRN 07/31/17 [History] Aspirin [Lo-Dose Aspirin EC] 81 mg PO DAILY 10/14/17 [History] Brimonidine Tartrate/Timolol [Combigan 0.2%-0.5% Eye Drops] 5 ml OP BID [History] Brinzolamide 1% [Azopt] 1 drop BOTH EYES BID 10/14/17 [History] Clopidogrel [Plavix] 75 mg PO DAILY #30 tablet 10/14/17 [Rx] Esomeprazole Magnesium [Nexium] 40 mg PO BID 10/14/17 [History] Insulin ASPART [Novolog Flexpen] 1 unit SQ TID 10/14/17 [History] Insulin DETEMIR [Levemir] 28 unit SQ HS 10/14/17 [History] Ropinirole HCl [Requip] 4 mg PO DAILY PRN 10/14/17 [History] Tizanidine HCl [Zanaflex] 4 mg PO HS 10/14/17 [History] amLODIPine [Norvasc] 5 mg PO DAILY #30 tablet 12/02/17 [Rx] Allergies/Adverse Reactions: 3 Allergy/AdvReac Type Severity Reaction Status Date / Time iodine Allergy Mild Hives Verified 12/01/17 01:06 morphine Allergy Difficulty Verified 12/01/17 01:06 Breathing Date of admission: 12/01/17 03:38 Primary care physician: Frank Zhou MD - Constitutional Vitals: Temp Pulse Resp BP Pulse Ox 97.8 F 74 20 145/65 97 12/02/17 08:39 12/02/17 08:39 12/02/17 08:39 12/02/17 06:28 12/02/17 08:39 Exam: Unremarkable - Patient Status Disposition: Home, Self-Care Condition: Fair - Discharge Instructions Follow Up With: Frank Zhou MD [Primary Care Provider] - 1 week - Diet and Activity Activity: resume usual activities as tolerated Diet: advance to your usual diet - VTE Reasons for not Prescribing Prophylaxis: Treatment not Indicated - Low risk for VTE
[2017-12-02] MEDS ORDERED: amLODIPine 5 MG TABLET PO ONE (10:59)
[2017-12-02 11:54] VITALS: BP 156/68
== END 2017-12-02 12:15 | disposition home or self-care (01) ==
LOC: EMEROOPIK 00:57 → INPPIK 00:57
PROVIDERS: ADMIT Internal Medicine; ATTEND Internal Medicine

== ENCOUNTER 2018-03-16 11:29 | Observation (INO) ==
[2018-03-16] MEDS ORDERED: Ipratropium/Albuterol Neb 3 ML IH ONE (11:30)
[2018-03-16] MEDS ORDERED: *HR* Labetalol 20 MG/4 ML SYRINGE IVP ONE ×2 (11:32→14:14)
--- NOTE | 2018-03-16 11:35 | Emergency Department Note ---
Disposition Clinical Impression: Hypertensive urgency, Elevated d-dimer, Elevated troponin I level Congestive heart failure Qualifiers: Heart failure type: unspecified Heart failure chronicity: acute Qualified Code(s): I50.9 - Heart failure, unspecified Chronic renal insufficiency Qualifiers: Chronic kidney disease stage: unspecified stage Qualified Code(s): N18.9 - Chronic kidney disease, unspecified Disposition: Admitted As Inpatient Condition: Fair Referrals: Frank Zhou MD [Primary Care Provider] - Forms: ED Satisfaction Letter SOB HPI - General Chief Complaint: ED Shortness of Breath/Dyspnea Stated Complaint: short of breath Time Seen by Provider: 03/16/18 11:30 Source: patient, family Mode of arrival: private vehicle Limitations: no limitations Nursing Notes Reviewed: Yes Vital Signs Reviewed: Yes - History of Present Illness Patient presents saying she has had increased shortness of breath since last night. This has been worse with laying down and forth exertion. She denies any episode quite like this before. She denies history of ongoing asthma, emphysema or COPD but does have on her med list albuterol aerosols and an inhaler. She denies any associated chest pain, palpitations or diaphoresis. She denies fever but has had some chills. She has a cough which is nonproductive. She denies any new lower extremity swelling or complaints. She states she has some vascular issues that she is scheduled to see Dr. Smith about with regard to her lower extremities. She has a recent change in medicine or acute rash. She denies abdominal or back pain. Denies nausea, vomiting or diarrhea. She states she has been around others with "colds". Pt Subjective Complaint: shortness of breath, cough Onset (ago): day(s) (1) Severity: moderate Consistency/Duration: gradually worsening Improves with: rest Worsens with: lying flat, exertion, movement, coughing Associated symptoms: Reports: cough, orthopnea. Denies: chest pain, pain with inspiration, fever, wheezing, sputum production, lower extremity pain, polyuria, polydipsia, parasthesias, palpitations, hemoptysis, diaphoresis, nausea/ vomiting, syncope, abdominal pain Treatment prior to arrival: none Cough present: Yes Cough Description: Voluntary, Non-Productive Cough Frequency: Intermittent Sputum production: No Sputum Amount: None - Related Data Home oxygen amount: none Home Medications Medication Instructions Recorded Confirmed Albuterol Neb [AccuNeb] 1.25 mg IH Q6H 02/13/18 03/16/18 Albuterol Sulfate [Proair Hfa] 1 puff IH Q4H 02/13/18 03/16/18 Amlodipine Besylate 10 mg PO DAILY 02/13/18 03/16/18 Ascorbic Acid [Vitamin C] 500 mg PO DAILY 02/13/18 03/16/18 Aspirin [Adult Aspirin Regimen] 81 mg PO DAILY 02/13/18 03/16/18 Atorvastatin Calcium [Lipitor] 40 mg PO DAILY 02/13/18 03/16/18 Brimonidine Tartrate/Timolol 1 drop OP BID 02/13/18 03/16/18 [Combigan 0.2%-0.5% Eye Drops] Brinzolamide 1% [Azopt] 1 drop .ROUTE TID 02/13/18 03/16/18 Carboxymethylcellulose Sodium 1 drop OP Q1H PRN 02/13/18 03/16/18 [Refresh Tears] Cetirizine HCl [All Day Allergy] 10 mg PO DAILY PRN 02/13/18 03/16/18 Cholecalciferol (Vitamin D3) 1,000 unit PO DAILY 02/13/18 03/16/18 [Vitamin D3] Clopidogrel [Plavix] 75 mg PO DAILY 02/13/18 03/16/18 Esomeprazole Magnesium [Nexium 40 mg PO DAILY 02/13/18 03/16/18 24Hr] Famotidine [Pepcid] 40 mg PO BID 02/13/18 03/16/18 Guaifenesin [Mucinex] 600 mg PO DAILY 02/13/18 03/16/18 HYDROcodone/Acet 5/325 mg [Sunflower 1 tab PO Q6H PRN 02/13/18 03/16/18 5-325 mg] Insulin DETEMIR [Levemir] 12 unit SQ QPM 02/13/18 03/16/18 Insulin LISPRO [HumaLOG] 0 unit SQ TID PRN 02/13/18 03/16/18 Lactobacillus [Culturelle] 1 each PO DAILY 02/13/18 03/16/18 Latanoprost/Pf [Latanoprost 0.005% 1 drop OP QPM 02/13/18 03/16/18 Eye Drop] Loratadine [Claritin] 10 mg PO DAILY 02/13/18 03/16/18 Multivitamin [One Daily Essential] 1 each PO DAILY 02/13/18 03/16/18 Polyethylene Glycol 3350 [MiraLAX] 17 gm PO DAILY 02/13/18 03/16/18 Pramipexole [Mirapex] 1 mg PO QPM 02/13/18 03/16/18 Temazepam [Restoril] 15 mg PO HS PRN 02/13/18 03/16/18 Tiotropium [Spiriva] 18 mcg IH DAILY 02/13/18 03/16/18 Tizanidine HCl [Zanaflex] 4 mg PO HS PRN 02/13/18 03/16/18 Allergies Allergy/AdvReac Type Severity Reaction Status Date / Time iodine Allergy Mild Hives Verified 02/12/18 23:26 morphine Allergy Difficulty Verified 02/12/18 23:26 Breathing All systems ED: reviewed and negative except as stated. Past Medical History - Past Medical History Attestation: Yes The following information was validated with the patient. Source: patient, nursing notes reviewed Medical history: Reports: cardiomyopathy, diabetes, hypertension, renal disease. Denies: DVT, pulmonary embolus Surgical history: Reports: appendectomy, carotid endarterectomy, cataract, c holecystectomy, other Psychiatric history: Reports: anxiety, depression MAMMOGRAPHY TECHNICIAN history: Reports: no MAMMOGRAPHY TECHNICIAN history - Social History Smoking Status: Former smoker Smokeless Tobacco Status: No Alcohol use: Reports: none Drug use: Reports: none Physical Exam - General Limitations: no limitations General appearance: alert, in distress (Mild, dyspneic) - Head Head exam: atraumatic, normocephalic, normal inspection - Eye Eye exam: Present: normal appearance, PERRL, EOMI - ENT ENT exam: normal exam, normal oropharynx, mucous membranes moist - Neck Neck exam: Present: normal inspection, full ROM, trachea midline - Chest Chest inspection: Present: normal inspection, symmetric chest wall rise - Respiratory Respiratory exam: Present: respiratory distress (Tachypnea), wheezes (Scant anterior with expiration). Absent: accessory muscle use, prolonged expiratory phase - Cardiovascular Cardiovascular exam: Present: regular rate, normal rhythm, normal heart sounds. Absent: tachycardia, JVD - Abdominal Exam Abdominal exam: Present: soft, Non-Tender, normal bowel sounds. Absent: tenderness, distention, guarding, rebound, rigidity - Extremities Exam Extremities exam: Present: normal inspection, full ROM, normal capillary refill, pedal edema (1-2+). Absent: tenderness, calf tenderness - Expanded Lower Extremity Exam Neurovascular/Tendon exam: Present: normal capillary refill. Absent: motor deficit, sensory deficit, tendon deficit Gait: not tested/not observed - Back Exam Back exam: Present: normal inspection, full ROM. Absent: tenderness - Neurological Exam Neurological exam: Present: alert, oriented X3 - Psychiatric Psychiatric exam: Present: normal affect, anxious - Skin Skin exam: Present: warm, dry, intact, normal color. Absent: cyanosis, diaphoresis, pallor Course Course Narrative: 1400: All testing is been discussed with the patient and her and ultimately with Dr. Tejada. He states he does note this patient well and feels comfortable observing her nor hospital area advised of the borderline elevated troponin, elevated d-dimer as well as a chronic renal insufficiency. Her blood pressure has been improved and she is up shaving well without tachycardia. She feels as if her breathing is improving. Verbal orders have been obtained for her observation. Vital Signs Temperature 97.6 F 03/16/18 11:30 Pulse Rate 81 03/16/18 11:30 Respiratory Rate 28 03/16/18 11:30 Blood Pressure 229/92 03/16/18 11:30 O2 Sat by Pulse Oximetry 90 03/16/18 11:30 Temperature 97.6 F 03/16/18 11:30 Pulse Rate 74 03/16/18 13:46 Respiratory Rate 22 03/16/18 13:46 Blood Pressure 114/67 03/16/18 13:46 O2 Sat by Pulse Oximetry 97 03/16/18 13:46 Oxygen Delivery Oxygen Delivery Nasal Cannula Shortness of Breath/Dyspnea - Differential Diagnosis Likely: acute exacerbation of chronic obstructive airways disease, congestive heart failure, pneumonia, asthma with exacerbation, pulmonary embolism - Medical Records Medical records reviewed: Yes I reviewed the patient's medical records. - Lab Data Lab results reviewed: Yes I reviewed the patient's lab results. Result diagrams: 03/16/18 13:10 03/16/18 13:10 Lab Results 03/16/18 03/16/18 03/16/18 Range/Units 12:56 13:10 13:10 WBC 7.9 (4.3-11.1) K/mcL RBC 3.76 L (3.82-4.97) M/mcL Hgb 10.6 L (11.5-15.4) g/dL Hct 33.2 L (35.3-44.9) % MCV 88.3 (83.0-100.0) fL MCH 28.2 (28.0-33.3) pg MCHC 31.9 (31.6-35.5) g/dL RDW 17.0 H (11.5-14.5) % Plt Count 222 (140-400) K/mcL MPV 10.8 (9.4-12.4) fL Immature Gran % 0.4 (0-4) % Seg Neutrophils % 79.6 % Lymphocytes % 9.6 % Monocytes % 7.5 % Eosinophils % 2.5 % Basophils % 0.4 % Neutrophils # 6.3 (1.6-8.9) K/mcL Lymphocytes # 0.8 (0.6-4.6) K/mcL Monocytes # 0.6 (0.0-1.3) K/mcL Eosinophils # 0.2 (0.0-0.6) K/mcL Basophils # 0.0 (0.0-0.2) K/mcL PT (9.4-12.1) Seconds INR APTT (26.0-36.0) Seconds D-Dimer 914 H (0-500) ng/mLFEU Sample Site L Brach ABG pH 7.45 (7.32-7.45) pH Units ABG pCO2 30 L (35-45) mmHg ABG pO2 111 H (85-104) mmHg ABG HCO3 21 (21-27) mEq/L ABG Total CO2 22 (20-26) mEq/L ABG O2 Saturation 99 H (95-98) % ABG Base Excess -2 (-2 to 3) mEq/L Neymar Test N/A O2 Delivery Device Cannula Sodium (136-145) mEq/L Potassium (3.5-5.1) mEq/L Chloride (98-107) mEq/L Carbon Dioxide (23-29) mEq/L BUN (8-23) mg/dL Creatinine (0.60-1.20) mg/dL Est GFR ( Amer) (> 60) Est GFR (Non-Af Amer) (> 60) BUN/Creatinine Ratio (6-26) Glucose (70-105) mg/dL Calculated Osmolality (280-300) Lactic Acid (0.5-2.2) mmol/L Calcium (8.6-10.3) mg/dL Troponin I (< 0.04) ng/mL B-Natriuretic Peptide (Less than 100) pg/mL 03/16/18 03/16/18 03/16/18 Range/Units 13:10 13:10 13:10 WBC (4.3-11.1) K/mcL RBC (3.82-4.97) M/mcL Hgb (11.5-15.4) g/dL Hct (35.3-44.9) % MCV (83.0-100.0) fL MCH (28.0-33.3) pg MCHC (31.6-35.5) g/dL RDW (11.5-14.5) % Plt Count (140-400) K/mcL MPV (9.4-12.4) fL Immature Gran % (0-4) % Seg Neutrophils % % Lymphocytes % % Monocytes % % Eosinophils % % Basophils % % Neutrophils # (1.6-8.9) K/mcL Lymphocytes # (0.6-4.6) K/mcL Monocytes # (0.0-1.3) K/mcL Eosinophils # (0.0-0.6) K/mcL Basophils # (0.0-0.2) K/mcL PT 11.5 (9.4-12.1) Seconds INR 1.0 APTT 32.4 (26.0-36.0) Seconds D-Dimer (0-500) ng/mLFEU Sample Site ABG pH (7.32-7.45) pH Units ABG pCO2 (35-45) mmHg ABG pO2 (85-104) mmHg ABG HCO3 (21-27) mEq/L ABG Total CO2 (20-26) mEq/L ABG O2 Saturation (95-98) % ABG Base Excess (-2 to 3) mEq/L Neymar Test O2 Delivery Device Sodium 138 (136-145) mEq/L Potassium 4.6 (3.5-5.1) mEq/L Chloride 104 (98-107) mEq/L Carbon Dioxide 26 (23-29) mEq/L BUN 47 H (8-23) mg/dL Creatinine 2.55 H (0.60-1.20) mg/dL Est GFR ( Amer) 22 L (> 60) Est GFR (Non-Af Amer) 18 L (> 60) BUN/Creatinine Ratio 18 (6-26) Glucose 184 H (70-105) mg/dL Calculated Osmolality 303 H (280-300) Lactic Acid 0.9 (0.5-2.2) mmol/L Calcium 9.0 (8.6-10.3) mg/dL Troponin I 0.04 H* (< 0.04) ng/mL B-Natriuretic Peptide (Less than 100) pg/mL 03/16/18 Range/Units 13:10 WBC (4.3-11.1) K/mcL RBC (3.82-4.97) M/mcL Hgb (11.5-15.4) g/dL Hct (35.3-44.9) % MCV (83.0-100.0) fL MCH (28.0-33.3) pg MCHC (31.6-35.5) g/dL RDW (11.5-14.5) % Plt Count (140-400) K/mcL MPV (9.4-12.4) fL Immature Gran % (0-4) % Seg Neutrophils % % Lymphocytes % % Monocytes % % Eosinophils % % Basophils % % Neutrophils # (1.6-8.9) K/mcL Lymphocytes # (0.6-4.6) K/mcL Monocytes # (0.0-1.3) K/mcL Eosinophils # (0.0-0.6) K/mcL Basophils # (0.0-0.2) K/mcL PT (9.4-12.1) Seconds INR APTT (26.0-36.0) Seconds D-Dimer (0-500) ng/mLFEU Sample Site ABG pH (7.32-7.45) pH Units ABG pCO2 (35-45) mmHg ABG pO2 (85-104) mmHg ABG HCO3 (21-27) mEq/L ABG Total CO2 (20-26) mEq/L ABG O2 Saturation (95-98) % ABG Base Excess (-2 to 3) mEq/L Neymar Test O2 Delivery Device Sodium (136-145) mEq/L Potassium (3.5-5.1) mEq/L Chloride (98-107) mEq/L Carbon Dioxide (23-29) mEq/L BUN (8-23) mg/dL Creatinine (0.60-1.20) mg/dL Est GFR ( Amer) (> 60) Est GFR (Non-Af Amer) (> 60) BUN/Creatinine Ratio (6-26) Glucose (70-105) mg/dL Calculated Osmolality (280-300) Lactic Acid (0.5-2.2) mmol/L Calcium (8.6-10.3) mg/dL Troponin I (< 0.04) ng/mL B-Natriuretic Peptide 1264 H (Less than 100) pg/mL - Radiology Data Radiology results reviewed: Yes I reviewed the patient's radiology results. Single view chest x-rays performed. This demonstrates an increase interstitial markings consistent with edema. I do not see evidence for focal infiltrate, effusion or pneumothorax. This is on my interpretation. Impressions Chest X-Ray 03/16/18 11:31 IMPRESSION: Findings concerning for pulmonary edema. D/ / Van Cortez MD / Van Cortez MD Interpreting Provider: Van Cortez MD - EKG Data EKG attestation: Yes I reviewed and interpreted this EKG. EKG shows normal: Reports: sinus rhythm, axis, intervals, QRS complexes, ST-T waves Rate: Reports: normal (79) P waves: Reports: LAE Interpretation: Reports: no acute changes
[2018-03-16] MEDS ORDERED: Furosemide 40 MG/4 ML VIAL IVP ONE ×2 (12:18→20:00)
[2018-03-16 13:00] LABS: ABG Base Excess -2 mEq/L (-2 to 3); ABG HCO3 21 mEq/L (21-27); ABG Oxygen Saturation 99 % (95-98); ABG PCO2 30 mmHg (35-45); ABG PH 7.45 pH Units (7.32-7.45); ABG PO2 111 mmHg (85-104); ABG TCO2 22 mEq/L (20-26)
[2018-03-16 13:21] LABS: Basophils % 0.4 %; Eosinophils # 0.2 K/mcL (0.0-0.6); Eosinophils % 2.5 %; Hematocrit 33.2 % (35.3-44.9); Hemoglobin 10.6 g/dL (11.5-15.4); Immature Granulocytes % 0.4 % (0-4); Lymphocytes # 0.8 K/mcL (0.6-4.6); Lymphocytes % 9.6 %; Mean Corpuscular HGB Conc 31.9 g/dL (31.6-35.5); Mean Corpuscular Hemoglobin 28.2 pg (28.0-33.3); Mean Corpuscular Volume 88.3 fL (83.0-100.0); Mean Platelet Volume 10.8 fL (9.4-12.4); Monocytes # 0.6 K/mcL (0.0-1.3); Monocytes % 7.5 %; Neutrophils # 6.3 K/mcL (1.6-8.9); Platelet Count 222 K/mcL (140-400); Red Blood Count 3.76 M/mcL (3.82-4.97); Segmented Neutrophils % 79.6 %
[2018-03-16 13:28] LABS: Prothrombin Time 11.5 Seconds (9.4-12.1)
[2018-03-16 13:31] LABS: Activated Partial Thrombo Time 32.4 Seconds (26.0-36.0)
[2018-03-16 13:40] LABS: Potassium 4.6 mEq/L (3.5-5.1)
[2018-03-16 13:44] LABS: Troponin I 0.04 ng/mL (< 0.04)
[2018-03-16] MEDS ORDERED: Dextrose Gel 15 GM/37.5 ML TUBE PO PRN ×2 (16:01)
[2018-03-16] MEDS ORDERED: Artificial Tears SOLN 15 ML BOTTLE OP PRN (16:01)
[2018-03-16] MEDS ORDERED: Naloxone 0.4 MG/ML INJ IVP PRN (16:01)
[2018-03-16] MEDS ORDERED: *HR* Dextrose 50 % in Water (Syg) 50 ML SYRINGE IVP PRN (16:01)
[2018-03-16] MEDS ORDERED: tiZANidine 4 MG TABLET PO PRN (16:01)
[2018-03-16] MEDS ORDERED: *HR* HYDROcodone/Acet 5/325 mg TABLET PO PRN (16:01)
[2018-03-16] MEDS ORDERED: *HR* Labetalol 20 MG/4 ML SYRINGE IVP PRN (16:01)
[2018-03-16] MEDS ORDERED: Loratadine 10 MG TABLET PO PRN (16:01)
[2018-03-16] MEDS ORDERED: D5% in Water 1,000 ML IVC PRN (16:01)
[2018-03-16] MEDS: Insulin LISPRO 300 UNITS/3 ML VIAL SQ SCH (17:40)
[2018-03-16] MEDS: AZOPT 1% OP SCH ×2 (17:41→20:11)
[2018-03-16] MEDS ORDERED: Latanoprost 2.5 ML BOTTLE BOTH EYES SCH (18:00)
[2018-03-16] MEDS ORDERED: NON-FORMULARY MEDICATION 1 EACH EACH (Insulin Detemir 12 UNIT) SQ SCH (18:00)
--- NOTE | 2018-03-16 18:51 | Internal Med History&Physical ---
Date of Encounter: 03/16/18 Time of Encounter: 18:15 Assessment and Plan (1) Diastolic heart failure Current visit: No Status: Chronic Start Imdur and metoprolol and monitor labs. Qualifiers: Heart failure chronicity: chronic Qualified Code(s): I50.32 - Chronic diastolic (congestive) heart failure (2) CKD (chronic kidney disease) stage 4, GFR 15-29 ml/min Current visit: No Status: Chronic Monitor renal indices as needed. (3) Hypertensive urgency Current visit: Yes Status: Acute Continue amlodipine and add metoprolol and Imdur. (4) Anemia Current visit: No Status: Acute Order anemia testing in a.m. Qualifiers: Anemia type: iron deficiency Iron deficiency anemia type: chronic blood loss Qualified Code(s): D50.0 - Iron deficiency anemia secondary to blood loss (chronic) (5) Dermatitis Current visit: Yes Status: Acute Start topical steroids. (6) Hypothyroidism Current visit: Yes Status: Acute Check TSH in a.m. Qualifiers: Hypothyroidism type: unspecified Qualified Code(s): E03.9 - Hypothyroidism, unspecified (7) Elevated d-dimer Current visit: Yes Status: Acute No symptoms of DVT or pulmonary embolus. Will not workup further at this time. (8) Elevated troponin I level Current visit: Yes Status: Acute Present on most labs since February 2015. Suspect due to poorly controlled hypertension and diastolic heart failure. Internal Medicine - H&P: HPI Chief complaint: Dyspnea Admitted From: Emergency Dept Plans for Post Hospital Care: Home History of present illness: Ms. Wakefield is a 78 year old female who came to emergency room stating she had worsening dyspnea onset previous evening. She had significant orthopnea during the night. She came to [facility] to receive outpatient IV infusion of erythropoietin today. Following the infusion she still felt dyspneic so went to emergency room. She was evaluated and found to have hypertensive urgency and evidence of early pulmonary edema. She was admitted to [facility] floor for ongoing care needs. She has history of hypertension and states blood pressures are typically 140-170 systolic at home. She denies CT. She had a heart catheter 03/19/2015 which showed LVEF of 55%. There was 30% stenosis in the mid RCA, 30% stenosis in the first marginal, and 40% stenosis in the proximal LAD. The LMCA was angiographically free of disease. An echocardiogram done 02/06/2018 showed LVEF of 65-70 %. The interventricular septum and posterior wall thickness measurements were elevated at 1.70 cm and 1.30 cm respectively. There was LAE at 4.20 cm. The E/A ratio was 1.1. There was mild aortic regurgitation and a bioprosthetic mitral valve with a mean gradient 6 mmHg. There was elevated estimated RVSP at 44 mmHg. She reports a leg DVT following the mitral valve replacement surgery at [facility] August 2015. She completed a course of Coumadin for this. She has had bilateral carotid endarterectomy surgery. Carotid duplex study 07/14/2017 showed bilateral ICA 40-59% stenosis Past Med Surg Social Fam HX - Past Medical History Medical history: cardiomyopathy, diabetes, hypertension, renal disease Additional medical history: RESTLESS LEG SYNDROME, [place] CAROTID STENOSIS. Psychiatric history: anxiety, depression - Past Surgical History Surgical History: appendectomy, carotid endarterectomy, cataract, cholecystectomy, other Additional surgical history: Mitral Valve replacement (porcine), stents, heart cath twice, left eye surgery, left heel spur, nasal sx,. and glaucoma SX - Social History Smoking Status: Former smoker Smokeless Tobacco Status: No Alcohol use: none Drug use: none - Family History Mother Adopted: No Family Member Ethnicity: Non- Living Status: Hx Family Cardiac Disorders: Yes Hx Family Respiratory Disorders: No Hx Family Cancer: No Hx Family GI Disorders: No Hx Family Endocrine Disorder: Yes Hx Family Neuromuscular Disorders: No Hx Family Neurologic Disorders: No Hx Family HEENT Disorders: No Hx Family Autoimmune Disorders: No Father Adopted: No Family Member Ethnicity: Non- Living Status: Hx Family Cardiac Disorders: Yes Hx Family Respiratory Disorders: Yes Hx Family Cancer: No Hx Family GI Disorders: No Hx Family Endocrine Disorder: No Hx Family Neuromuscular Disorders: No Hx Family Neurologic Disorders: No Hx Family HEENT Disorders: No Hx Family Autoimmune Disorders: No Internal Medicine - H&P: Meds Albuterol Neb [AccuNeb] 1.25 mg IH Q6H 02/13/18 [History] Albuterol Sulfate [Proair Hfa] 1 puff IH Q4H 02/13/18 [History] Amlodipine Besylate 10 mg PO DAILY 02/13/18 [History] Ascorbic Acid [Vitamin C] 500 mg PO DAILY 02/13/18 [History] Aspirin [Adult Aspirin Regimen] 81 mg PO DAILY 02/13/18 [History] Atorvastatin Calcium [Lipitor] 40 mg PO DAILY 02/13/18 [History] Brimonidine Tartrate/Timolol [Combigan 0.2%-0.5% Eye Drops] 1 drop OP BID 02/13/18 [History] Brinzolamide 1% [Azopt] 1 drop .ROUTE TID 02/13/18 [History] Carboxymethylcellulose Sodium [Refresh Tears] 1 drop OP Q1H PRN 02/13/18 [History] Cetirizine HCl [All Day Allergy] 10 mg PO DAILY PRN 02/13/18 [History] Cholecalciferol (Vitamin D3) [Vitamin D3] 1,000 unit PO DAILY 02/13/18 [History] Clopidogrel [Plavix] 75 mg PO DAILY 02/13/18 [History] Esomeprazole Magnesium [Nexium 24Hr] 40 mg PO DAILY 02/13/18 [History] Famotidine [Pepcid] 40 mg PO BID 02/13/18 [History] Guaifenesin [Mucinex] 600 mg PO DAILY 02/13/18 [History] HYDROcodone/Acet 5/325 mg [[place] 5-325 mg] 1 tab PO Q6H PRN 02/13/18 [History] Insulin DETEMIR [Levemir] 12 unit SQ QPM 02/13/18 [History] Insulin LISPRO [HumaLOG] 0 unit SQ TID PRN 02/13/18 [History] Lactobacillus [Culturelle] 1 each PO DAILY 02/13/18 [History] Latanoprost/Pf [Latanoprost 0.005% Eye Drop] 1 drop OP QPM 02/13/18 [History] Loratadine [Claritin] 10 mg PO DAILY 02/13/18 [History] Multivitamin [One Daily Essential] 1 each PO DAILY 02/13/18 [History] Polyethylene Glycol 3350 [MiraLAX] 17 gm PO DAILY 02/13/18 [History] Pramipexole [Mirapex] 1 mg PO QPM 02/13/18 [History] Temazepam [Restoril] 15 mg PO HS PRN 02/13/18 [History] Tiotropium [Spiriva] 18 mcg IH DAILY 02/13/18 [History] Tizanidine HCl [Zanaflex] 4 mg PO HS PRN 02/13/18 [History] Allergy/AdvReac Type Severity Reaction Status Date / Time iodine Allergy Mild Hives Verified 02/12/18 23:26 morphine Allergy Difficulty Verified 02/12/18 23:26 Breathing All Systems PM: A 10-system review of systems was performed and is negative for pertinent findings except as documented above in the HPI. Review of systems: Review of systems from her November 2017 [facility] hospitalization were reviewed and revised as below. Gen.: Her weight increased from 69.485 kg on 02/05/2017 to 77.111 kg April 2017 but decreased to 64.41 kg at present.. Cardiovascular: As per history of present illness Respiratory: She smoked from age [age] up to 1 pack per day. She had PFTs 12/29/2015 which showed FVC of 57% predicted. The FEV1/FVC was 66% with significant improvement in FEV1 postbronchodilator. The RV was 130%. DLCO corrected was 40%. She does not use home oxygen. GI: She has had cholecystectomy. She has rare GERD symptoms. She denies disorders of her liver or exocrine pancreas. She reports a colonoscopy done Summer 2016 was negative. : She has chronic kidney disease stage 4 and follows with a [place] civil technician. She denies other kidney or bladder disorders. Neurologic: She was hospitalized at [facility] with possible TIA September 2017. Aspirin and Plavix were restarted after she had stopped taking them several weeks prior to admission. She has known ASCVD with carotid ultrasound June 2017 showing unchanged 40-59% bilateral stenosis. She has had previous bilateral carotid endarterectomies. She has not had large distribution strokes or seizures. She has not had documented migraine headaches. She had brain MRI August 2017 which did not show acute pathology. Endocrine: She was diagnosed with DM 2 in 1976. She has hyperlipidemia and hypothyroidism. Hematology/oncology: She has history of anemia. She denies known internal malignancies Psychiatric: She has feelings of depression. Denies anxiety other mental health issues Musk skeletal: She denies arthritis gout or other bone joint or muscle disorders. - Constitutional Vitals: Temp Pulse Resp BP Pulse Ox 98.9 F 79 16 172/70 100 03/16/18 18:20 03/16/18 18:20 03/16/18 18:20 03/16/18 18:20 03/16/18 18:20 Exam: Gen.: She is a well-developed well-nourished female who appears in no acute distress at present time HEENT: Head is atraumatic and normocephalic. Eyes: EOMI. There is no scleral icterus. Mouth: Mucosa is moist. Neck: Supple and nontender. There is no thyromegaly or adenopathy noted. Heart: Regular with a 2/6 systolic murmur heard over the precordium. Lungs: No wheezes or crackles are heard. Abdomen: Soft and nontender. No masses or guarding are noted. Extremities: There is no cyanosis edema or clubbing noted. Dorsalis pedis and posterior tibial pulses are trace palpable bilaterally. She has chronic venous stasis pigmentation changes of her lower legs bilaterally. She has minimal DJD changes of her hands. Neurologic: Mental status: She is talkative and a good historian. Cranial nerves: Smile is symmetric. Forehead wrinkles bilaterally. Tongue protrudes midline. EOMI. Motor: There is no pronator drift. Cerebellar: Finger to nose is intact bilaterally. Skin: Warm and dry. She has dermatitis of her left upper posterior shoulder area consistent with atopic dermatitis. She has stage 3-4 ulcer in her left anterior ac area covered with a gauze dressing. There is no erythema or exudate. Internal Med - H&P Results - Labs CBC & Chem 7: 03/16/18 13:10 03/16/18 13:10 Labs: Short CBC 03/16/18 Range/Units 13:10 WBC 7.9 (4.3-11.1) K/mcL Hgb 10.6 L (11.5-15.4) g/dL Hct 33.2 L (35.3-44.9) % Plt Count 222 (140-400) K/mcL Neutrophils # 6.3 (1.6-8.9) K/mcL BMP 03/16/18 13:10 Sodium 138 Potassium 4.6 Chloride 104 Carbon Dioxide 26 BUN 47 H Creatinine 2.55 H Glucose 184 H Calcium 9.0 Cardiac Enzymes 03/16/18 Range/Units 13:10 Troponin I 0.04 H* (< 0.04) ng/mL - ABG Interpretation ABG results: 03/16/18 12:56 ABG pH 7.45 ABG pCO2 30 L ABG pO2 111 H ABG HCO3 21 ABG Total CO2 22 ABG O2 Saturation 99 H ABG Base Excess -2 - Impressions ITS Impressions Chest X-Ray 03/16/18 11:31 IMPRESSION: Findings concerning for pulmonary edema. D/ / Van Cortez MD / Van Cortez MD Interpreting Provider: Van Cortez MD
[2018-03-16] MEDS ORDERED: Albuterol 2.5 MG/3 ML NEBULIZER IH PRN (19:14)
[2018-03-16] MEDS: Isosorbide MONOnitrate (24 HR) 30 MG TAB.ER.24H PO SCH (19:59)
[2018-03-16] MEDS: Hydrocortisone Lotion 59 ML BOTTLE TP SCH (20:11)
[2018-03-16] MEDS: COMBIGAN OPH OP SCH (20:12)
[2018-03-16] MEDS ORDERED: Temazepam 15 MG CAPSULE PO PRN (21:00)
[2018-03-16] MEDS ORDERED: Famotidine 20 MG TABLET PO SCH (21:00)
[2018-03-16] MEDS ORDERED: Insulin DETEMIR 100 UNIT/ML X5UNITS SQ SCH (21:00)
[2018-03-16] MEDS ORDERED: Albuterol 2.5 MG/3 ML NEBULIZER IH SCH (22:00)
[2018-03-17] MEDS ORDERED: Ascorbic Acid 500 MG TABLET PO SCH (06:30)
[2018-03-17 06:41] LABS: Thyroid Stimulating Hormone 2.738 mcIU/mL (0.340-5.600)
[2018-03-17] MEDS: Insulin LISPRO 300 UNITS/3 ML VIAL SQ SCH ×2 (07:34→11:32)
[2018-03-17] MEDS ORDERED: Tiotropium 18 MCG inhalation IH SCH (09:00)
[2018-03-17] MEDS ORDERED: amLODIPine 5 MG TABLET PO SCH (09:00)
[2018-03-17] MEDS ORDERED: Aspirin Enteric Coated 81 MG Tablet PO SCH (09:00)
[2018-03-17] MEDS ORDERED: Multivit/Ca/Min/Fe/FA 1 TAB TABLET PO SCH (09:00)
[2018-03-17] MEDS ORDERED: Cholecalciferol (D-3) 1,000 UNIT TABLET PO SCH (09:00)
[2018-03-17] MEDS ORDERED: Lactobacillus 1 EACH CAP.SPRINK PO SCH (09:00)
[2018-03-17] MEDS: COMBIGAN OPH OP SCH (10:05)
[2018-03-17] MEDS: AZOPT 1% OP SCH (10:06)
[2018-03-17] MEDS: Isosorbide MONOnitrate (24 HR) 30 MG TAB.ER.24H PO SCH (10:06)
[2018-03-17] MEDS: Hydrocortisone Lotion 59 ML BOTTLE TP SCH (10:10)
[2018-03-17 10:25] LABS: Folate 6.4 ng/mL (3.0-16.0)
[2018-03-17 11:24] VITALS: BP 170/65
--- NOTE | 2018-03-17 11:24 | Discharge Summary ---
Date of Encounter: 03/17/18 Time of Encounter: 11:10 - Discharge Diagnosis (1) Diastolic heart failure Priority: Primary Status: Chronic Qualifiers: Heart failure chronicity: chronic Qualified Code(s): I50.32 - Chronic diastolic (congestive) heart failure (2) CKD (chronic kidney disease) stage 4, GFR 15-29 ml/min Priority: Secondary Status: Chronic (3) Hypertensive urgency Priority: Secondary Status: Resolved (4) Anemia Priority: Secondary Status: Acute Qualifiers: Anemia type: iron deficiency Iron deficiency anemia type: chronic blood loss Qualified Code(s): D50.0 - Iron deficiency anemia secondary to blood loss (chronic) (5) Dermatitis Priority: Secondary Status: Acute (6) Hypothyroidism Priority: Secondary Status: Acute Qualifiers: Hypothyroidism type: unspecified Qualified Code(s): E03.9 - Hypothyroidism, unspecified (7) Elevated d-dimer Priority: Secondary Status: Acute (8) Elevated troponin I level Priority: Secondary Status: Acute Hospital course: Ms. Wakefield is a 78 year old female who came to emergency room stating she had worsening dyspnea onset previous evening. She had significant orthopnea during the night. She came to [facility] to receive outpatient IV infusion of erythropoietin today. Following the infusion she still felt dyspneic so went to emergency room. She was evaluated and found to have hypertensive urgency and evidence of early pulmonary edema. She was admitted to [facility] floor for ongoing care needs. Initial orders were written by the emergency room physician. I saw her on March 16 and performed a history and physical. She was started on metoprolol and Imdur. Her regular home medicines were continued. Blood pressure returned to satisfactory range. BN peptide decreased minimally to 1219 the following day. She was asymptomatic when I saw her on March 17 and felt stable for discharge home which I felt was reasonable. She will follow with her PCP Dr. Frank Zhou within 1 week. She will be continued on Toprol-XL and Imdur. Anemia testing iron panel results were of questionable accuracy with iron 304, transferrin saturation 117%, transferrin 185, and ferritin 326. B12 and folate were normal at 292 and 6.4 respectively. Her PCP can recheck labs as indicated. She was given topical steroid cream for her left posterior shoulder dermatitis. This will be continued at discharge for 1 week. Her PCP can monitor dermatitis and further treat/refer as needed. Room air oximetry on 6 minute walk will be checked prior to discharge. - Time Spent with Patient Total time spent providing and/or coordinating discharge services: - Discharge Medications Prescriptions: Isosorbide MONOnitrate (24 HR) [Imdur] 30 mg PO DAILY #30 tab.er.24h Metoprolol XL (24 HR) Succ [Toprol XL] 50 mg PO DAILY #30 tab.er.24h Triamcinolone Acet 0.1% CRM [Kenalog] 1 appl TP BID #1 tube Home Medications: Albuterol Neb [AccuNeb] 1.25 mg IH Q6H 02/13/18 [History] Albuterol Sulfate [Proair Hfa] 1 puff IH Q4H 02/13/18 [History] Amlodipine Besylate 10 mg PO DAILY 02/13/18 [History] Ascorbic Acid [Vitamin C] 500 mg PO DAILY 02/13/18 [History] Aspirin [Adult Aspirin Regimen] 81 mg PO DAILY 02/13/18 [History] Atorvastatin Calcium [Lipitor] 40 mg PO DAILY 02/13/18 [History] Brimonidine Tartrate/Timolol [Combigan 0.2%-0.5% Eye Drops] 1 drop OP BID 02/13/18 [History] Brinzolamide 1% [Azopt] 1 drop .ROUTE TID 02/13/18 [History] Carboxymethylcellulose Sodium [Refresh Tears] 1 drop OP Q1H PRN 02/13/18 [History] Cetirizine HCl [All Day Allergy] 10 mg PO DAILY PRN 02/13/18 [History] Cholecalciferol (Vitamin D3) [Vitamin D3] 1,000 unit PO DAILY 02/13/18 [History] Clopidogrel [Plavix] 75 mg PO DAILY 02/13/18 [History] Esomeprazole Magnesium [Nexium 24Hr] 40 mg PO DAILY 02/13/18 [History] Famotidine [Pepcid] 40 mg PO BID 02/13/18 [History] Guaifenesin [Mucinex] 600 mg PO DAILY 02/13/18 [History] HYDROcodone/Acet 5/325 mg [Patten 5-325 mg] 1 tab PO Q6H PRN 02/13/18 [History] Insulin DETEMIR [Levemir] 12 unit SQ QPM 02/13/18 [History] Insulin LISPRO [HumaLOG] 0 unit SQ TID PRN 02/13/18 [History] Lactobacillus [Culturelle] 1 each PO DAILY 02/13/18 [History] Latanoprost/Pf [Latanoprost 0.005% Eye Drop] 1 drop OP QPM 02/13/18 [History] Loratadine [Claritin] 10 mg PO DAILY 02/13/18 [History] Multivitamin [One Daily Essential] 1 each PO DAILY 02/13/18 [History] Polyethylene Glycol 3350 [MiraLAX] 17 gm PO DAILY 02/13/18 [History] Pramipexole [Mirapex] 1 mg PO QPM 02/13/18 [History] Temazepam [Restoril] 15 mg PO HS PRN 02/13/18 [History] Tiotropium [Spiriva] 18 mcg IH DAILY 02/13/18 [History] Tizanidine HCl [Zanaflex] 4 mg PO HS PRN 02/13/18 [History] Isosorbide MONOnitrate (24 HR) [Imdur] 30 mg PO DAILY #30 tab.er.24h 03/17/18 [Rx] Metoprolol XL (24 HR) Succ [Toprol XL] 50 mg PO DAILY #30 tab.er.24h 03/17/18 [Rx] Triamcinolone Acet 0.1% CRM [Kenalog] 1 appl TP BID #1 tube 03/17/18 [Rx] Allergies/Adverse Reactions: Allergy/AdvReac Type Severity Reaction Status Date / Time iodine Allergy Mild Hives Verified 02/12/18 23:26 morphine Allergy Difficulty Verified 02/12/18 23:26 Breathing Date of admission: 03/16/18 14:29 Primary care physician: Frank Zhou MD - Constitutional Vitals: Temp Pulse Resp BP Pulse Ox 98.8 F 69 16 106/51 91 03/17/18 06:46 03/17/18 08:40 03/17/18 09:37 03/17/18 08:40 03/17/18 09:37 - Patient Status Disposition: Home, Self-Care Condition: Fair - Discharge Instructions Follow Up With: Frank Zhou MD [Primary Care Provider] - 1 week - Diet and Activity Activity: resume usual activities as tolerated Diet: advance to your usual diet
--- NOTE | 2018-03-18 14:22 | Electrocardiograph Report ---
[address] [id number] Test Date: 2018-03-16 Pat Name: Maria Antonia Wakefield Department: [id number] Room: [facility] Gender: F [employer]: Kwame : 1940 Requested By: Mu Francis Order Number: [id number] Reading MD: Elia Lawson Measurements Intervals [place] Rate: 79 P: 50 OK: 163 QRS: 18 QRSD: 110 T: 64 QT: 401 QTc: 436 Interpretive Statements SINUS RHYTHM LEFT ATRIAL ENLARGEMENT Electronically Signed On 03-18-2018 14:20:47 EST by Elia Lawson
== END 2018-03-17 13:10 | disposition home or self-care (01) ==
LOC: INPPIK 11:29 → EMEROOPIK 11:29 → INPPIK 15:53
PROVIDERS: ADMIT Internal Medicine; ATTEND Internal Medicine